=== PATIENT | male | born 1945 | race Hispanic/Latino ===

== ENCOUNTER 2021-11-10 15:57 | Inpatient (IN) | payer OTHER ==
[2021-11-10] MEDS ORDERED: IPRATROPIUM BROM 0.5MG/2.5ML ONE (16:01)
[2021-11-10] MEDS ORDERED: LEVALBUTEROL 1.25 MG/3 ML NEB ONE (16:01)
--- OUTSIDE RECORDS SUMMARY | 2021-11-10 16:31 | XMS REPORT | Continuity of Care Document ---
:1945 Author Organization [facility] t Address [address] [place] [address] Care Team Providers Name Role Phone Floridalma BOCANEGRA Primary Care Physician NATALIE Attending Clinician Unavailable Shaq KAY Attending Clinician Unavailable Heather Cespedes MD Attending Clinician Cirilo RN Attending Clinician Unavailable Floridalma BOCANEGRA Attending Clinician Charlene Ayala MD Attending Clinician Kevin Owens DO Attending Clinician Robin BOCANEGRA Attending Clinician Emmanuelle BOCANEGRA, TCecilia Attending Clinician Maria Elena RN Attending Clinician Unavailable Fahad King MD Attending Clinician Lapin_S Attending Clinician Unavailable Kody Cifuentes Attending Clinician [phone] Renetta Hancock MD Attending Clinician Juanita BOCANEGRA Attending Clinician Sherita Reddy MD Attending Clinician Shani BOCANEGRA Attending Clinician Raju_P Attending Clinician Unavailable ROBIN Admitting Clinician Unavailable Lapin_S Admitting Clinician Unavailable JUANITA Admitting Clinician Unavailable Raju_P Admitting Clinician Unavailable Payers Payer Name Policy Type Policy Number Effective Date Expiration Date Leslie teixeira [place]IC[place]: [id number] 1995 [employer] 00:00:00 AETNA (INDEMNITY) [id number] 00:00:00 AETNA [id number] 2000 00:00:00 Problems Condition Condition Condition Status Onset Resolution Last Treating Co mments Source Name Details Category Date Date Treatment Clinician Date COVID-19 COVID-19 Disease Active [facility] 9-03 st 00:00: Hospita 00 l Late onset Late onset Disease Active 2018-08 M ethodi Alzheimer' Alzheimer' 0-15 st s disease s disease 00:00: Hosp lina with with 00 l behavioral behavioral disturbanc disturbanc e e 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 00:00: Ho spita disorder disorder 00 l Macular Macular Disease Active [facility] degenerati degenerati 8-16 st on on 00:00: Hospita 00 l Vision Vision Disease Active [facility] loss loss 8-16 st 00:00: Hospita 00 l 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 00:00: Hospit a 00 l Dementia Dementia Disease Active [facility] di associated associated [address] with with 00:00: Hospita alcoholism alcoholism 00 l with with behavioral behavioral disturbanc disturbanc e e 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 00:00: Hospit a 00 l Alcoholic Alcoholic Disease Active Met [facility]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 00:00: Ho spita 00 l Abnormal Abnormal Disease Active [facility] di gait gait 5-08 st 00:00: Hospita 00 l Bilateral Bilateral Disease Active Met hodi hearing hearing 2-27 st loss loss 00:00: Hospita 00 l Chronic Chronic Disease Active [facility] anxiety anxiety 2-27 st 00:00: Hospita 00 l Bilateral Bilateral Disease Active Met [facility]odi lumbar lumbar 2-27 st radiculopa radiculopa 00:00: Ho spita thy thy 00 l Nocturia Nocturia Disease Active [facility] di 2-27 st 00:00: Hospita 00 l Current Current Disease Active [facility] smoker smoker 10-27 00:00: Hospita 00 l Insomnia Insomnia Disease Active [facility] di 09-30 00:00: Hospita 00 l History of History of Disease Active 2011-08 Overview : [facility] colon colon 0-[address] cancer cancer 00:00: g of this Hospita 00 note l might be different from the original. Formattin g of this note might be different from the original. 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 00:00: Hospit a 00 l Allergies, Adverse Reactions, Alerts Allergy Allergy Status Severity Reaction(s) Onset Inactive Treating Comm ents Source Name Type Date Date Clinician Angelito Steinberg Active Other (See Severe Met hodi ty to Comments) [address] adverse 00:00: ion Hospita reaction 00 l s to drug Family History Family Member Diagnosis Comments Start Date Stop Date Source Natural brother Lung cancer [facility] Natural brother Alcohol abuse [facility] Natural brother Parkinsonism [facility] Natural father Other [facility] mother Diabetes [facility] mother [facility] sister [facility] Natural sister Hypertension [facility] Natural sister Lung cancer [facility] Natural sister Stomach cancer [facility] Natural sister Breast cancer [facility] Social History Social Habit Start Date Stop Date Quantity Comments Source History of tobacco Cigarette Smoker [facility] use Hospital History SDOH [facility] Alcohol Frequency Hospita l History SDOH [facility] Alcohol Std Drinks Hospit al History SDOH [facility] Alcohol Binge Hospital Alcohol intake 2021-08-12 2021-08-12 Current drinker [facility] 00:00:00 00:00:00 of alcohol Hospital (finding) Cigarettes smoked 2018-04-19 2018-04-[address] current (pack per 00:00:00 00:00:00 Hospita l day) - Reported Tobacco use and 2018-04-19 2018-04-19 Smokeless tobacco [facility] exposure 00:00:00 00:00:00 non-user Hospital Alcohol Comment 2016-07-21 2016-07-21 occ used to drink [facility] 00:00:00 00:00:00 heavy until age Hospital 48 Sex Assigned At [birth year] [facility] 00:00:00 00:00:00 Hospital Smoking Status Start Date Stop Date Source Ex-smoker 2018-04-19 00:00:00 2018-04-19 00:00:00 Method t [facility] Medications Ordered Filled Start Stop Current Ordering Indication Dosage Frequency Signature Comments Components Source Medication Medication Date Date Medication? Clinician (SIG) Name Name benzonatate 2021- No 100mg Q.5D Take 100 [facility] (TESSALON) 09-30-[address] 100 MG 13:13: 00:00 mouth 2 Hospita capsule 39 :00 (two) l times a day as needed for cough. benzonatate Yes 100mg Q.5D Take 1 Met hodi (TESSALON) 09-[address] 100 MG 00:00: (100 mg Hospita capsule 00 total) by l mouth 2 (two) times a day as needed for cough. bromphenira 2021- Yes 5mL Q.25D Take 5 mL Method[facility] mine-pseudo 09-30 by mouth 4 s t eph-DM 00:00: 05:59 (four) Hospita 2-30-10 00 :00 times a l mg/5 mL day as syrup needed for congestion , cough or allergies for up to 10 days. doxycycline 2021- Yes 100mg Q.5D Take 1 Me [facility] (VIBRA-TABS 09-[address] ) 100 MG 00:00: 05:59 (100 mg Hospi ta tablet 00 :00 total) by l mouth 2 (two) times a day for 7 days. QUEtiapine Yes TAKE 1 Metho di (SEROquel) 1-[address] 25 MG 00:00: MOUTH AT Hospita tablet 00 5PM AND 2 l TABLETS EVERY NIGHT AT BEDTIME tamsulosin 2020-08 Yes .4mg QD Take 0.4 Met hodi (FLOMAX) 2-[address] 0.4 mg 11:23: mouth Hospita capsule,ext 19 daily. l ended release 24hr sertraline 2020-08 Yes 150mg QD Take 150 Me [facility] (ZOLOFT) 2-[address] 100 MG 11:23: mouth Hospita tablet 14 daily. l losartan 2020-08 Yes 50mg QD Take 50 mg Met hodi (COZAAR) 50 2-[address] MG tablet 11:22: daily. Hospit a 13 l donepeziL 2020-08 Yes 10mg QD Take 10 mg [facility] (ARICEPT) 2-[address] 10 MG 11:21: nightly. Hospita tablet 41 l albuterol 2020-08 Yes [id number] 2.5mg Q6H Take 3 mL [facility] (ACCUNEB) -18 (2.[address] 2.5 mg /3 00:00: total) by Hos lay mL (0.083 00 nebulizati l %) on every 6 nebulizer (six) solution hours as needed for wheezing. amoxicillin 2020-08- No 1{tbl} Q.5D Take 1 M ethodi -pot 09-[address] clavulanate 00:00: 05:59 mouth 2 Ho spita (Augmentin) 00 :00 (two) l 875-125 mg times a per tablet day for 7 days. loratadine 2020-08 Yes 10mg QD Take 1 Meth[facility] di (CLARITIN) 08-31 tablet (10 st 10 mg 00:00: mg total) Hospita tablet 00 by mouth l daily. azelastine 2020-08- No 1{spray Q.5D 1 spray [facility] (ASTELIN) 08-31 } into each st 137 mcg 00:00: 04:59 nostril 2 Hosp lina (0.1 %) 00 :00 (two) l nasal spray times a day. Use in each nostril as directed QUEtiapine 2020-08- No 3{tbl} QD Take 3 Me [facility] (SEROquel) 009-[address] 25 MG 00:00: 00:00 mouth Hospita tablet 00 :00 nightly. 1 l tablet at 5 pm and 2 tablets at 10-11 pm fluticasone 2020- No 1{puff} Q.5D Inhale 1 [facility] propion-timi 05-21 09-[address] meteroL 16:10: 00:00 (two) Hospita (ADVAIR/ 18 :00 times a l WIXELA day. INHUB) 250-50 mcg/dose DISKUS albuterol 2020- No 2{puff} Inhale 2 [facility] (PROAIR 05-[address] HFA) 90 16:10: 00:00 needed for Hos lay mcg/actuati 11 :00 wheezing l on inhaler or shortness of breath. benzonatate 2020- No 100mg Q.[id number] Take 100 [facility] (TESSALON) 05-21 [id number] mg by s t 100 MG 16:02: 00:00 3D mouth 3 Hospita capsule 01 :00 (three) l times a day as needed for cough. esomeprazol 2020- No 40mg Q24H Take 40 mg Methodi e (NexIUM) 05-[address] 40 MG 14:58: 00:00 daily as Hospita capsule 31 :00 needed. l acetaminoph 2020- No 500mg Take 500 [facility] en 05-[address] (TYLENOL) 14:58: 00:00 mouth as Hos lay 500 MG 31 :00 needed for l tablet mild pain. albuterol 2020- No 2.5mg Q6H Take 2.5 Me [facility] (ACCUNEB) 05-[address] 2.5 mg /3 14:58: 00:00 nebulizati H ospita mL (0.083 31 :00 on every 6 l %) (six) nebulizer hours as solution needed for wheezing or shortness of breath. QUEtiapine 2020- No 25mg Q.5D Take 25 mg [facility] (SEROquel) 05-[address] 25 MG 14:58: 00:00 (two) Hospita tablet 31 :00 times a l day. At 6pm and at bedtime QUEtiapine 2020-2020- No 50mg QD Take 1 Meth froy (SEROquel) 05-09 1010 tablet (50 st 50 MG 00:00: 04:59 mg total) Hospit a tablet 00 :00 by mouth l daily for 30 days. carvediloL 2020- No 3.125mg Q.5D Take 1 M ethodi (COREG) 05-[address] 3.125 MG 00:00: 04:59 (3.125 mg Hos lay tablet 00 :00 total) by l mouth 2 (two) times a day for 30 days. cholecalcif 2020- No 1000U QD Take 1 Me thodi wesley, 05-[address] vitamin D3, 00:00: 04:59 (1,000 Hos lay 1,000 unit 00 :00 Units l tablet total) by mouth daily for 30 days. doxazosin 2020- No 2mg QD Take 1 Metho di (CARDURA) 2 05-09 tablet (2 st MG tablet 00:00: 04:59 mg total) Ho spita 00 :00 by mouth l daily for 30 days. famotidine 2020- No 20mg Q.5D Take 1 Meth froy (PEPCID) 20 05-09 tablet (20 s t MG tablet 00:00: 04:59 mg total) Ho spita 00 :00 by mouth 2 l (two) times a day for 30 days. flecainide 2020- No 50mg Q.5D Take 1 Meth froy (TAMBOCOR) 05-09 tablet (50 st 50 MG 00:00: 04:59 mg total) Hospit a tablet 00 :00 by mouth l every 12 (twelve) hours for 30 days. pantoprazol 2020- No 40mg QD Take 1 Met hodi e 05-09 tablet (40 st (PROTONIX) 00:00: 04:59 mg total) H ospita 40 MG EC 00 :00 by mouth l tablet daily for 30 days. predniSONE 2020- No 5mg QD Take 1 Meth froy (DELTASONE) 05-09 tablet (5 st 5 mg tablet 00:00: 00:00 mg total) Hospita 00 :00 by mouth l daily for 30 days. ascorbic 2020- No 500mg QD Take 1 Metho di acid, 05-[address] vitamin C, 00:00: 04:59 (500 mg Hos lay (VITAMIN C) 00 :00 total) by l 500 MG mouth tablet daily for 10 days. zinc 2020- No 1{capsu QD Take 1 [facility] sulfate 05-09 le} capsule by st (ZINCATE) 00:00: 04:59 mouth Hospit a 50 mg zinc 00 :00 daily for l (220 mg) 10 days. capsule pantoprazol 2020- No 40mg QD Take 1 Met hodi e 05-09 tablet (40 st (PROTONIX) 00:00: 00:00 mg total) H ospita 40 MG EC 00 :00 by mouth l tablet daily for 30 days. finasteride 2020- No 5mg QD Take 1 Met hodi (PROSCAR) 5 05-08 tablet (5 st mg tablet 00:00: 04:59 mg total) Ho spita 00 :00 by mouth l daily for 30 days. polyethylen 2020- No 17g Q24H Take 17 g Methodi e glycol 05-[address] (MIRALAX) 00:00: 00:00 daily as Hos lay 17 gram 00 :00 needed for l packet constipati on for up to 30 days. QUEtiapine No 50mg QD Take 1 Meth froy (SEROquel) 05-08 tablet (50 st 50 MG 00:00: 00:00 mg total) Hospit a tablet 00 :00 by mouth l daily for 30 days. ascorbic No 500mg QD Take 1 Metho di acid, 05-[address] vitamin C, 00:00: 00:00 (500 mg Hos lay (VITAMIN C) 00 :00 total) by l 500 MG mouth tablet daily for 10 days. carvediloL 2020- No 3.125mg Q.5D Take 1 M ethodi (COREG) 05-[address] 3.125 MG 00:00: 00:00 (3.125 mg Hos lay tablet 00 :00 total) by l mouth 2 (two) times a day for 30 days. cholecalcif 2020- No 1000U QD Take 1 Me thodi wesley, 05-[address] vitamin D3, 00:00: 00:00 (1,000 Hos lay 1,000 unit 00 :00 Units l tablet total) by mouth daily for 30 days. doxazosin No 2mg QD Take 1 Metho di (CARDURA) 2 05-08 tablet (2 st MG tablet 00:00: 00:00 mg total) Ho spita 00 :00 by mouth l daily for 30 days. famotidine No 20mg Q.5D Take 1 Meth froy (PEPCID) 20 05-08 tablet (20 s t MG tablet 00:00: 00:00 mg total) Ho spita 00 :00 by mouth 2 l (two) times a day for 30 days. flecainide No 50mg Q.5D Take 1 Meth froy (TAMBOCOR) 05-08 tablet (50 st 50 MG 00:00: 00:00 mg total) Hospit a tablet 00 :00 by mouth l every 12 (twelve) hours for 30 days. predniSONE No 5mg QD Take 1 Meth froy (DELTASONE) 05-08 tablet (5 st 5 mg tablet 00:00: 00:00 mg total) Hospita 00 :00 by mouth l daily for 30 days. zinc No 1{capsu QD Take 1 [facility]i sulfate 05-08 le} capsule by st (ZINCATE) 00:00: 00:00 mouth Hospit a 50 mg zinc 00 :00 daily for l (220 mg) 10 days. capsule acetaminoph No 1{tbl} Take 1 M ethodi en (TYLENOL 04-[address] ORAL) 11:50: 00:00 mouth as Hospita 03 :00 needed. l QUEtiapine 2020- No 25mg Q.5D Take 25 mg [facility] (SEROquel) 03-[address] 25 MG 07:26: 00:00 (two) Hospita tablet 33 :00 times a l day. Take 1 tablet at 6 pm and 1 tablet at 9 pm for sundowning and restlessne ss. QUEtiapine 2020- No quetiapine [facility] (SEROquel) 03-[address] 25 MG 00:00: 00:00 tablet at Hospit a tablet 00 :00 5 pm and 2 l tablets at bedtime. benzonatate 100mg Q.[id number] Take 1 [facility] (TESSALON) 03-[id number] 100 MG 00:00: 00:00 3D (100 mg Hospita capsule 00 :00 total) by l mouth 3 (three) times a day as needed for cough for up to 30 days. albuterol [id number] 2.5mg Q6H Take 3 mL [facility] (ACCUNEB) 03-01 (2.[address] 2.5 mg /3 00:00: 00:00 total) by Ho spita mL (0.083 00 :00 nebulizati l %) on every 6 nebulizer (six) solution hours as needed for wheezing (excess cough). amoxicillin No 1{tbl} Q.5D Take 1 M ethodi -pot 03-[address] clavulanate 00:00: 04:59 mouth 2 Ho spita (Augmentin) 00 :00 (two) l 875-125 mg times a per tablet day for 7 days. donepeziL 2020- No TAKE 1 Metho di (ARICEPT) 02-11 TABLET(10 st 10 MG 00:00: 00:00 MG) BY Hospita tablet 00 :00 MOUTH l EVERY NIGHT traZODone No 50mg QD Take 1 Metho di (DESYREL) 02-08 tablet (50 st 50 MG 00:00: 00:00 mg total) Hospit a tablet 00 :00 by mouth l nightly. losartan 2020- No TAKE 1 Method i (COZAAR) 50 01-29 TABLET(50 st MG tablet 00:00: 00:00 MG) BY Hospi ta 00 :00 MOUTH l DAILY ergocalcife 2020- No TAKE 1 Met hodi rol 01-[address] (VITAMIN 00:00: 00:00 MOUTH 1 Hospi ta D2) 50,000 00 :00 TIME A l unit WEEK capsule sertraline No TAKE 1 AND [facility] (ZOLOFT) 01-28 08 1/2 st 100 MG 00:00: 00:00 TABLETS BY Hosp lina tablet 00 :00 MOUTH l EVERY DAY amLODIPine No 10mg QD Take 1 Meth froy (NORVASC) 12-19 tablet (10 st 10 mg 00:00: 04:59 mg total) Hospit a tablet 00 :00 by mouth l daily for 30 days. fluticasone QD Inhale 1 M ethodi furoate-christy 12-19 inhalation s t anteroL 00:00: 04:59 s once Hospita (BREO 00 :00 daily for l ELLIPTA) 30 days. 100-25 mcg/dose blister with device powder for inhalation ipratropium No [id number] 3mL Q.[id number] Take 3 mL Method[facility] -albuteroL 12-[id number] (DUO-NEB) 00:00: 04:59 3D nebulizati H ospita 0.5-2.5 00 :00 on every 6 l mg/3 mL (six) nebulizer hours while awake for 30 days. aspirin 81mg QD Take 81 mg Met hodi (ECOTRIN) 4-14 04-[address] 81 MG 11:20: 00:00 daily. Hospita enteric 01 :00 l coated tablet QUEtiapine quetiapine [facility] (SEROquel) 09-26 04-[address] 25 MG 00:00: 00:00 1/2 tablet Hospi ta tablet 00 :00 at 6 pm l and 1 tablet at 9 pm for sundowning and restlessne ss. ergocalcife 2019-08 [id number] Q7D Take 1 M ethodi rol 01-[address] (VITAMIN 00:00: 00:00 (50,000 Hospi ta D2) 50,000 00 :00 Units l unit total) by capsule mouth once a week. sertraline 2019-08 No TAKE 1 AND [facility] (ZOLOFT) -18 05- 1/2 st 100 MG 00:00: 00:00 TABLETS BY Hosp lina tablet 00 :00 MOUTH l EVERY DAY finasteride 5mg QD Take 5 mg [facility] (PROSCAR) 5 05-[address] mg tablet 00:00: 00:00 daily. Hospi ta 00 :00 l traZODone 50mg QD Take 1 Metho di (DESYREL) 05-14 tablet (50 st 50 MG 00:00: 00:00 mg total) Hospit a tablet 00 :00 by mouth l nightly. At 2 or 3 am for sleep. losartan TAKE 1 Method i (COZAAR) 50 04-23 TABLET(50 st MG tablet 00:00: 00:00 MG) BY Hospi ta 00 :00 MOUTH l DAILY donepeziL 2020- No TAKE 1 Metho di (ARICEPT) 02-13 TABLET(10 st 10 MG 00:00: 00:00 MG) BY Hospita tablet 00 :00 MOUTH l EVERY NIGHT dutasteride 2016-08 Yes .5mg QD Take 0.5 Me thodi (AVODART) 2-[address] 0.5 mg 00:00: mouth Hospita capsule 00 daily. l diclofenac No 1g Place 1 g M ethodi (VOLTAREN) 04-[address] 1 % gel 00:00: 00:00 skin as Hospit a 00 :00 needed. l pediatric No 1{tbl} Chew 1 Met hodi multivitami 09-[address] n-iron 00:00: 00:00 daily. 1 Hospit a tablet,chew 00 :00 tab po qd l able Immunizations Ordered Immunization Filled Immunization Date Status Commen ts Source Name [facility] 2021-04-05 Completed [facility] 00:00:00 [facility] 2021-04-04 Completed [facility] 00:00:00 [facility] 2021-04-03 Completed [facility] 00:00:00 [facility] 2021-04-02 Completed [facility] 00:00:00 [facility] 2021-04-01 Completed [facility] 00:00:00 Hospital FLUZONE QUAD 2020-05-01 Completed [facility] 00:00:00 Hospital FLUZONE HIGH-DOSE PF 2019-07-19 Completed [facility]ist 00:00:00 Hospital Td, Unspecified 2019-01-17 Completed [facility] 00:00:00 [facility] FLUZONE HIGH-DOSE PF 2018-08-03 Completed Meth odist 00:00:00 Hospital FLUZONE QUAD 2018-05-31 Completed [facility] 00:00:00 Hospital Pneumococcal 2017-05-31 Completed [facility] Polysaccharide 00:00:00 Hospital Pneumococcal 2017-03-01 Completed [facility] Conjugate 13-Valent 00:00:00 Hospi mario Pneumococcal 2015-08-12 Completed [facility] Conjugate 13-Valent 00:00:00 Hospi mario Pneumococcal 2015-03-15 Completed [facility] Conjugate 13-Valent 00:00:00 [facility] FLUZONE HIGH-DOSE PF 2014-08-31 Completed Meth odist 00:00:00 [facility] Influenza Trivalent 2014-07-05 Completed [facility] dist 00:00:00 Hospital Zoster 2014-04-26 Completed [facility] 00:00:00 Hospital Influenza, 2012-08-31 Completed [facility] Unspecified 00:00:00 Hospital Influenza Trivalent 2012-06-22 Completed [facility] 00:00:00 Hospital Influenza Trivalent 2011-06-30 Completed [facility] dist 00:00:00 [facility] Influenza Trivalent 2010-07-01 Completed [facility] dist 00:00:00 Hospital Pneumococcal 2008-08-31 Completed [facility] Conjugate 13-Valent 00:00:00 [facility] mario Tdap 2008-08-31 Completed [facility] 00:00:00 Hospital Influenza Trivalent 2007-06-16 Completed [facility] 00:00:00 Hospital Influenza Trivalent 2005-06-27 Completed [facility] 00:00:00 Hospital Vital Signs Vital Name Observation Time Observation Value Comments Source Systolic blood 2021-07-18 18:58:00 127 mm[Hg] [facility] Hospital pressure Diastolic blood 2021-07-18 18:58:00 74 mm[Hg] [facility] Hospital pressure Heart rate 2021-07-18 18:58:00 82 /min [facility] Oxygen saturation in 2021-07-18 18:58:00 97 /min [facility] Arterial blood by Pulse oximetry Body temperature 2021-05-09 12:44:13 36.33 [facility] Respiratory rate 2021-05-09 12:44:13 18 /min [facility] Body height 2021-04-22 09:00:00 165.1 cm [facility] Body weight 2021-04-22 09:00:00 79.1 kg [facility] BMI 2021-04-22 09:00:00 29.02 kg/m2 [facility] Procedures Procedure Date / Time Performing Clinician Source Performed DURABLE MEDICAL EQUIPMENT 2021-05-08 21:20:18 [facility] COVID-19 QUALITATIVE 2021-05-07 20:35:00 [facility] RT-PCR CBC WITH PLATELET AND 2021-05-07 11:28:00 [facility] DIFFERENTIAL BASIC METABOLIC PANEL 2021-05-07 11:28:00 [facility] ESTIMATED GFR 2021-05-07 11:28:00 [facility] MANUAL DIFFERENTIAL 2021-05-07 11:28:00 [facility] CBC WITH PLATELET AND 2021-05-06 08:48:00 [facility] DIFFERENTIAL BASIC METABOLIC PANEL 2021-05-06 08:48:00 [facility] ESTIMATED GFR 2021-05-06 08:48:00 [facility] MANUAL DIFFERENTIAL 2021-05-06 08:48:00 [facility] DURABLE MEDICAL EQUIPMENT 2021-05-03 16:45:59 Muriel Benavides [facility] POC GLUCOSE 2021-05-03 13:25:00 [facility] BASIC METABOLIC PANEL 2021-05-03 09:40:[address] [facility] CBC HEMOGRAM 2021-05-03 09:40:[address] [facility] spital ESTIMATED GFR 2021-05-03 09:40:00 [facility] 2021-05-03 09:40:00 Muriel Benavides spital POC GLUCOSE 2021-05-02 21:55:00 [facility] POC GLUCOSE 2021-05-02 16:56:00 [facility] POC GLUCOSE 2021-05-02 12:34:00 [facility] CBC WITH PLATELET AND 2021-05-02 09:12:00 [facility] DIFFERENTIAL BASIC METABOLIC PANEL 2021-05-02 09:12:00 [facility] MAGNESIUM LEVEL 2021-05-02 09:12:00 [facility] PHOSPHORUS LEVEL 2021-05-02 09:12:00 [facility] ESTIMATED GFR 2021-05-02 09:12:00 [facility] MANUAL DIFFERENTIAL 2021-05-02 09:12:00 [facility] POC GLUCOSE 2021-05-02 02:39:00 [facility] POC GLUCOSE 2021-05-01 23:23:00 [facility] COVID-19 QUALITATIVE 2021-05-01 23:06:00 [facility] RT-PCR POC GLUCOSE 2021-05-01 17:19:00 [facility] POC GLUCOSE 2021-05-01 14:09:00 [facility] CBC WITH PLATELET AND 2021-05-01 08:28:00 [facility] DIFFERENTIAL BASIC METABOLIC PANEL 2021-05-01 08:28:00 [facility] MAGNESIUM LEVEL 2021-05-01 08:28:00 [facility] PHOSPHORUS LEVEL 2021-05-01 08:28:00 [facility] ESTIMATED GFR 2021-05-01 08:28:00 [facility] MANUAL DIFFERENTIAL 2021-05-01 08:28:00 [facility] POC GLUCOSE 2021-04-30 20:36:00 [facility] POC GLUCOSE 2021-04-30 16:53:00 [facility] POC GLUCOSE 2021-04-30 13:58:00 [facility] POC GLUCOSE 2021-04-30 13:20:00 [facility] POC GLUCOSE 2021-04-30 09:54:00 [facility] CBC WITH PLATELET AND 2021-04-30 08:41:00 [facility] DIFFERENTIAL BASIC METABOLIC PANEL 2021-04-30 08:41:00 [facility] ESTIMATED GFR 2021-04-30 08:41:00 [facility] MANUAL DIFFERENTIAL 2021-04-30 08:41:00 [facility] POC GLUCOSE 2021-04-30 06:32:00 [facility] POC GLUCOSE 2021-04-30 05:57:00 [facility] [facility] POC GLUCOSE 2021-04-30 03:14:00 [facility] POC GLUCOSE 2021-04-29 22:25:00 [facility] POC GLUCOSE 2021-04-29 17:18:00 [facility] POC GLUCOSE 2021-04-29 13:43:00 [facility] B NATRIURETIC PEPTIDE 2021-04-29 09:49:00 [facility] BASIC METABOLIC PANEL 2021-04-29 09:49:00 [facility] ESTIMATED GFR 2021-04-29 09:49:00 [facility] POC GLUCOSE 2021-04-29 09:40:00 [facility] POC GLUCOSE 2021-04-29 06:16:00 [facility] POC GLUCOSE 2021-04-29 01:59:00 [facility] POC GLUCOSE 2021-04-28 21:52:00 [facility] POC GLUCOSE 2021-04-28 17:52:00 [facility] POC GLUCOSE 2021-04-28 13:35:00 [facility] POC GLUCOSE 2021-04-28 11:17:00 [facility] BASIC METABOLIC PANEL 2021-04-28 10:30:00 [facility] MAGNESIUM LEVEL 2021-04-28 10:30:00 [facility] PHOSPHORUS LEVEL 2021-04-28 10:30:00 [facility] ESTIMATED GFR 2021-04-28 10:30:00 [facility] CBC WITH PLATELET AND 2021-04-28 10:27:00 [facility] DIFFERENTIAL MANUAL DIFFERENTIAL 2021-04-28 10:27:00 [facility] POC GLUCOSE 2021-04-28 07:32:00 [facility] POC GLUCOSE 2021-04-28 03:37:00 [facility] POC GLUCOSE 2021-04-27 22:25:00 [facility] POC GLUCOSE 2021-04-27 17:49:00 [facility] POC GLUCOSE 2021-04-27 14:49:00 [facility] CBC WITH PLATELET AND 2021-04-27 11:27:00 [facility] DIFFERENTIAL BASIC METABOLIC PANEL 2021-04-27 11:27:00 [facility] L[facility] 2021-04-27 11:27:00 [facility] PHOSPHORUS LEVEL 2021-04-27 11:27:00 [facility] B NATRIURETIC PEPTIDE 2021-04-27 11:27:00 [facility]y [facility] ESTIM[facility] GFR 2021-04-27 11:27:00 [facility] MANUAL DIFFERENTIAL 2021-04-27 11:27:00 [facility] POC GLUCOSE 2021-04-27 09:13:00 [facility] POC GLUCOSE 2021-04-27 04:26:00 [facility] POC GLUCOSE 2021-04-27 01:53:00 [facility] POC GLUCOSE 2021-04-26 22:13:00 [facility] POC GLUCOSE 2021-04-26 19:01:00 [facility] TRANSFUSE RED BLOOD CELLS 2021-04-26 18:07:00 [facility] PREPARE RBC 2021-04-26 15:33:00 [facility] POC GLUCOSE 2021-04-26 15:32:00 [facility] POC GLUCOSE 2021-04-26 13:09:00 [facility] CBC WITH PLATELET AND 2021-04-26 10:55:00 [facility] DIFFERENTIAL BASIC METABOLIC PANEL 2021-04-26 10:55:00 [facility] MAGNESIUM LEVEL 2021-04-26 10:55:00 [facility] PHOSPHORUS LEVEL 2021-04-26 10:55:00 [facility] ESTIMATED GFR 2021-04-26 10:55:00 [facility] MANUAL DIFFERENTIAL 2021-04-26 10:55:00 HandleyKali erazo [facility] POC GLUCOSE 2021-04-26 09:22:00 [facility] POC GLUCOSE 2021-04-26 05:04:00 [facility] POC GLUCOSE 2021-04-26 01:03:00 [facility] POC GLUCOSE 2021-04-25 23:08:00 [facility] POC GLUCOSE 2021-04-25 17:33:00 [facility] POC GLUCOSE 2021-04-25 13:20:00 [facility] CBC WITH PLATELET AND 2021-04-25 11:02:00 [facility] DIFFERENTIAL BASIC METABOLIC PANEL 2021-04-25 11:02:00 [facility] MAGNESIUM LEVEL 2021-04-25 11:02:00 [facility] PHOSPHORUS LEVEL 2021-04-25 11:02:00 [facility] ESTIMATED GFR 2021-04-25 11:02:00 [facility] MANUAL DIFFERENTIAL 2021-04-25 11:02:00 [facility] 2021-04-25 09:30:00 [facility] POC GLUCOSE 2021-04-25 05:17:00 [facility] POC GLUCOSE 2021-04-25 01:27:00 [facility] POC GLUCOSE 2021-04-24 21:55:00 [facility] [place] MODIFIED BARIUM 2021-04-24 20:24:21 HandleyKali jiménez [facility] POC GLUCOSE 2021-04-24 17:20:00 [facility] POC GLUCOSE 2021-04-24 13:05:00 [facility] POC GLUCOSE 2021-04-24 09:36:00 [facility] D-DIMER 2021-04-24 09:24:00 Ngitit, Kelsie [facility] CBC WITH PLATELET AND 2021-04-24 09:24:00 [facility] DIFFERENTIAL BASIC METABOLIC PANEL 2021-04-24 09:24:00 [facility] MAGNESIUM LEVEL 2021-04-24 09:24:00 [facility] PHOSPHORUS LEVEL 2021-04-24 09:24:00 [facility] ESTIMATED GFR 2021-04-24 09:24:00 [facility] MANUAL DIFFERENTIAL 2021-04-24 09:24:00 [facility] POC GLUCOSE 2021-04-24 05:08:00 [facility] XR ABDOMEN 1 VW PORTABLE 2021-04-24 00:25:10 [facility] POC GLUCOSE 2021-04-24 00:15:00 [facility] CBC WITH PLATELET AND 2021-04-23 09:51:00 Angela Martino [facility] DIFFERENTIAL COMPREHENSIVE METABOLIC 2021-04-23 09:51:00 Gunner [facility] PANEL D-DIMER 2021-04-23 09:51:00 [facility] [place] ESTIMATED GFR 2021-04-23 09:51:00 Martino [facility] MANUAL DIFFERENTIAL 2021-04-23 09:51:00 Angela Martino [facility] POC GLUCOSE 2021-04-23 09:49:00 [facility] POC GLUCOSE 2021-04-23 04:58:00 [facility] POC GLUCOSE 2021-04-23 02:10:00 HandleyKali jiménez. [facility] POC GLUCOSE 2021-04-22 17:32:00 HandleyKali jiménez T. [facility] POC GLUCOSE 2021-04-22 13:31:00 Handley [facility] T. [facility] POC GLUCOSE 2021-04-22 10:14:00 [facility] Nolberto. [facility] HC COMPLETE BLD COUNT 2021-04-22 08:55:00 Martino [facility] W/AUTO DIFF COMPREHENSIVE METABOLIC 2021-04-22 08:55:00 [facility] PANEL D-DIMER 2021-04-22 08:55:[address] [facility] martha Grimes ESTIMATED GFR 2021-04-22 08:55:00 HandleyaKli jiménez [facility] POC GLUCOSE 2021-04-22 05:08:00 Handley jessy Kaufman [facility] POC GLUCOSE 2021-04-21 22:31:00 HandleyKali [facility] POC GLUCOSE 2021-04-21 17:39:00 [facility] jessy Kaufman [facility] XR CHEST 1 VW PORTABLE 2021-04-21 14:22:08 Denisa [facility] Deepa Machelle POC GLUCOSE 2021-04-21 13:37:00 Handley osorio Mandeep [facility] ECG 12-LEAD 2021-04-21 12:11:07 Brian Maldonado martha Sykesandra Machelle CBC WITH PLATELET AND 2021-04-21 10:41:00 Angela Martino [facility] DIFFERENTIAL COMPREHENSIVE METABOLIC 2021-04-21 10:41:00 [facility] PANEL ESTIMATED GFR 2021-04-21 10:41:00 HandleyKali jiménez. [facility] MANUAL DIFFERENTIAL 2021-04-21 10:41:[address] [facility] POC GLUCOSE 2021-04-21 10:27:00 HandleyKali [facility] POC GLUCOSE 2021-04-21 05:27:00 Kali Handley [facility] POC GLUCOSE 2021-04-21 02:10:00 Kali Handley. [facility] POC GLUCOSE 2021-04-20 22:45:00 HandleyKali jiménez [facility] POC GLUCOSE 2021-04-20 17:11:00 HandleyKali jiménez [facility] XR CHEST 1 VW PORTABLE 2021-04-20 14:12:35 [facility] POC GLUCOSE 2021-04-20 13:13:00 Kali Handley [facility] POC GLUCOSE 2021-04-20 10:03:00 Kali Handley [facility] COMPREHENSIVE METABOLIC 2021-04-20 06:38:00 Kali Handley [facility] PANEL CBC WITH PLATELET AND 2021-04-20 06:38:00 Kali Handley [facility] DIFFERENTIAL ESTIMATED GFR 2021-04-20 06:38:00 Kali Handley [facility] MANUAL DIFFERENTIAL 2021-04-20 06:38:[address] [facility] POC GLUCOSE 2021-04-20 05:27:00 Kali Handley [facility] POC GLUCOSE 2021-04-20 02:09:00 HandleyKali jiménez [facility] POC GLUCOSE 2021-04-19 21:42:00 Kali Handley [facility] XR CHEST 1 VW PORTABLE 2021-04-19 21:28:35 [facility] POC GLUCOSE 2021-04-19 17:47:00 HandleyKali jiménez [facility] POC GLUCOSE 2021-04-19 13:25:00 HandleyKali jiménez [facility] POC GLUCOSE 2021-04-19 09:25:00 HandleyKali jiménez [facility] C-REACTIVE PROTEIN 2021-04-19 09:21:00 Kali [facility] COMPREHENSIVE METABOLIC 2021-04-19 09:21:00 Kali Handley [facility] PANEL CBC WITH PLATELET AND 2021-04-19 09:21:00 Kali Handley [facility] DIFFERENTIAL D-DIMER 2021-04-19 09:21:[address] [facility] spital FERRITIN LEVEL 2021-04-19 09:21:00 Kennedy, [facility] spital FIBRINOGEN 2021-04-19 09:21:00 Kennedy, [facility] spital INTERLEUKIN 6 2021-04-19 09:21:00 Kennedy, [facility] spital MAGNESIUM LEVEL 2021-04-19 09:21:00 Kennedy, [facility] spital PHOSPHORUS LEVEL 2021-04-19 09:21:00 Kennedy, [facility] ospital CRP HIGH SENSITIVITY 2021-04-19 09:21:00 Tracie Benavides[facility] ESTIMATED GFR 2021-04-19 09:21:00 Kali Handley Cecilia [facility] BILIRUBIN DIRECT 2021-04-19 09:21:00 Emmanuel[facility] MANUAL DIFFERENTIAL 2021-04-19 09:21:00 [facility] POC GLU[facility]SE 2021-04-19 05:49:00 [facility] POC GLUCOSE 2021-04-19 01:21:00 [facility] POTASSIUM LEVEL 2021-04-19 00:51:00 Sorinitit, Kelsie [facility] spital [place] MAGNESIUM LEVEL 2021-04-19 00:51:00 Ngitit, Kelsie [facility] spital [place] POC GLUCOSE 2021-04-18 22:45:00 [facility] XR CHEST 1 VW PORTABLE 2021-04-18 18:00:00 Joel [facility] Deepa Nicole POC GLUCOSE 2021-04-18 17:06:00 [facility] ECG 12-LEAD 2021-04-18 13:56:40 [facility] POC GLUCOSE 2021-04-18 13:34:00 [facility] GLUCOSE 2021-04-18 10:40:00 [facility] C-REACTIVE PROTEIN 2021-04-18 06:59:00 Handley [facility] COMPREHENSIVE METABOLIC 2021-04-18 06:59:[address] [facility] ESTIMATED GFR 2021-04-18 06:59:00 [facility] CBC WITH PLATELET AND 2021-04-18 06:58:00 [facility] DIFFERENTIAL B NATRIURETIC PEPTIDE 2021-04-18 06:58:00 [facility] MANUAL DIFFERENTIAL 2021-04-18 06:58:00 Handley [facility] POC GLUCOSE 2021-04-18 06:48:00 [facility] POC GLUCOSE 2021-04-18 01:40:00 [facility] POC GLUCOSE 2021-04-17 22:36:00 [facility] POC GLUCOSE 2021-04-17 17:50:00 [facility] POC GLUCOSE 2021-04-17 13:19:00 [facility] POC GLUCOSE 2021-04-17 10:11:00 [facility] POC GLUCOSE 2021-04-17 06:49:00 [facility] C-REACTIVE PROTEIN 2021-04-17 06:34:00 Handley [facility] CBC WITH PLATELET AND 2021-04-17 06:34:00 [facility] DIFFERENTIAL COMPREHENSIVE METABOLIC 2021-04-17 06:34:00 [facility]len [facility] PANEL ESTIMATED GFR 2021-04-17 06:34:00 [facility] MANUAL DIFFERENTIAL 2021-04-17 06:34:00 [facility] POC GLUCOSE 2021-04-17 01:52:00 [facility] XR CHEST 1 VW PORTABLE 2021-04-16 22:04:00 Kelsie Serra [facility] [place] POC GLUCOSE 2021-04-16 21:25:00 [facility] POC GLUCOSE 2021-04-16 17:27:00 [facility] POC GLUCOSE 2021-04-16 13:23:00 [facility] ECG 12-LEAD 2021-04-16 10:30:15 Brian Maldonado [facility] Deepa Carty COMPLETE BLD COUNT 2021-04-16 10:05:00 [facility] W/AUTO DIFF COMPREHENSIVE METABOLIC 2021-04-16 10:05:00 [facility] PANEL C-REACTIVE PROTEIN 2021-04-16 10:05:00 [facility] ESTIMATED GFR 2021-04-16 10:05:00 [facility] VANCOMYCIN LEVEL, TROUGH 2021-04-16 10:05:00 [facility] SMEAR REVIEW 2021-04-16 10:05:00 [facility] POC GLUCOSE 2021-04-16 10:01:00 [facility] POC GLUCOSE 2021-04-16 05:49:00 [facility] POC GLUCOSE 2021-04-16 02:03:00 [facility] POC GLUCOSE 2021-04-15 22:57:00 [facility] POC GLUCOSE 2021-04-15 17:26:00 [facility] XR CHEST 1 VW PORTABLE 2021-04-15 17:15:00 [facility] POC GLUCOSE 2021-04-15 13:27:00 [facility] CBC WITH PLATELET AND 2021-04-15 11:14:00 OsborneMae woodarg [facility] DIFFERENTIAL C-REACTIVE PROTEIN 2021-04-15 11:14:00 CanadaLe[place]ani [facility] D-DIMER 2021-04-15 11:14:00 [facility] ESTIMATED GFR 2021-04-15 11:14:00 [facility] COMPREHENSIVE METABOLIC 2021-04-15 11:14:00 [facility] PANEL MANUAL DIFFERENTIAL 2021-04-15 11:14:00 [facility] POC GLUCOSE 2021-04-15 09:43:00 [facility] POC GLUCOSE 2021-04-15 06:05:00 [facility] POC GLUCOSE 2021-04-15 01:36:00 [facility] POC GLUCOSE 2021-04-14 22:39:00 [facility] CBC WITH PLATELET AND 2021-04-14 19:00:00 [facility] DIFFERENTIAL MANUAL DIFFERENTIAL 2021-04-14 19:00:00 [facility] HC COMPLETE BLD COUNT 2021-04-14 18:26:00 [facility] Deepa Ernandezle POC GLUCOSE 2021-04-14 18:07:00 [facility] POC GLUCOSE 2021-04-14 14:05:00 [facility] HC COMPLETE BLD COUNT 2021-04-14 12:48:00 [facility] W/AUTO DIFF SMEAR REVIEW 2021-04-14 12:48:00 [facility] BASIC METABOLIC PANEL 2021-04-14 10:50:00 [facility] HC COMPLETE BLD COUNT 2021-04-14 10:50:00 [facility] W/AUTO DIFF PERIPHERAL SMEAR 2021-04-14 10:50:00 [facility] FERRITIN LEVEL 2021-04-14 10:50:00 [facility] ospital FOLATE LEVEL 2021-04-14 10:50:00 [facility] ospital THYROID STIMULATING 2021-04-14 10:50:00 [facility] HORMONE TOTAL IRON BINDING 2021-04-14 10:50:00 [facility] CAPACITY VITAMIN B12 LEVEL 2021-04-14 10:50:00 [facility] RETICULOCYTE COUNT 2021-04-14 10:50:00 [facility] ESTIMATED GFR 2021-04-14 10:50:00 [facility] POC GLUCOSE 2021-04-14 09:33:00 [facility] POC GLUCOSE 2021-04-14 06:00:00 [facility] POC GLUCOSE 2021-04-14 02:38:00 [facility] POC GLUCOSE 2021-04-13 22:04:00 [facility] TRANSFUSE PLATELET 2021-04-13 18:30:00 [facility] PHERESIS TRANSFUSE PLATELET 2021-04-13 17:18:00 [facility] PHERESIS POC GLUCOSE 2021-04-13 17:02:00 [facility] URINE CULTURE 2021-04-13 13:34:00 [facility] URINALYSIS SCREEN AND 2021-04-13 11:49:00 [facility] MICROSCOPY, WITH REFLEX TO CULTURE PREPARE PLATELET PHERESIS 2021-04-13 11:40:00 [facility] RBC 2021-04-13 11:40:00 Shi Rahman [facility] TYPE AND SCREEN 2021-04-13 11:40:00 [facility] PHERESIS 2021-04-13 11:27:00 [facility] 2021-04-13 11:21:00 [facility] ECG 12-LEAD 2021-04-13 11:11:49 Belkys Garcia spital PROTHROMBIN TIME WITH INR 2021-04-13 10:58:00 [facility] PARTIAL THROMBOPLASTIN 2021-04-13 10:58:00 [facility] TIME (PTT) FIBRINOGEN 2021-04-13 10:58:00 [facility] BASIC METABOLIC PANEL 2021-04-13 08:43:00 [facility] HC COMPLETE BLD COUNT 2021-04-13 08:43:00 [facility] W/AUTO DIFF ESTIMATED GFR 2021-04-13 08:43:00 [facility] SMEAR REVIEW 2021-04-13 08:43:00 [facility] POC GLUCOSE 2021-04-13 05:14:00 [facility] POC GLUCOSE 2021-04-12 23:12:00 [facility] POC GLUCOSE 2021-04-12 22:59:00 [facility] POC GLUCOSE 2021-04-12 17:40:00 [facility] POC GLUCOSE 2021-04-12 11:23:00 [facility] ECG 12-LEAD 2021-04-12 11:08:46 Brian Maldonado D-DIMER 2021-04-12 09:40:00 Kamryn Gillette [facility] MAGNESIUM LEVEL 2021-04-12 09:40:00 [facility] PHOSPHORUS LEVEL 2021-04-12 09:40:00 Kamryn godfrey [facility] BASIC METABOLIC PANEL 2021-04-12 09:40:00 [facility] CBC WITH PLATELET AND 2021-04-12 09:40:00 [facility] DIFFERENTIAL VANCOMYCIN LEVEL, TROUGH 2021-04-12 09:40:00 [facility] ESTIMATED GFR 2021-04-12 09:40:00 [facility] MANUAL DIFFERENTIAL 2021-04-12 09:40:00 [facility] POC GLUCOSE 2021-04-12 05:15:00 [facility] POC GLUCOSE 2021-04-12 01:50:00 [facility] POC GLUCOSE 2021-04-11 22:07:00 [facility] POC GLUCOSE 2021-04-11 19:19:00 [facility] POC GLUCOSE 2021-04-11 17:33:00 [facility] ECG 12-LEAD 2021-04-11 16:18:[address] [facility] 2021-04-11 10:50:00 [facility] C-REACTIVE PROTEIN 2021-04-11 10:29:00 [facility] 2021-04-11 10:29:00 Kamryn Gillette [facility] BASIC METABOLIC PANEL 2021-04-11 10:29:00 Kamryn Gillette [facility] CBC WITH PLATELET AND 2021-04-11 10:29:00 Kamryn Gillette [facility] DIFFERENTIAL MAGNESIUM LEVEL 2021-04-11 10:29:00 Kamryn Gillette [facility] PHOSPHORUS LEVEL 2021-04-11 10:29:00 [facility] ESTIMATED GFR 2021-04-11 10:29:00 [facility] MANUAL DIFFERENTIAL 2021-04-11 10:29:00 [facility] POC GLUCOSE 2021-04-11 04:35:00 [facility] POC GLUCOSE 2021-04-10 22:41:00 [facility] CT CHEST W CONTRAST 2021-04-10 22:17:47 [facility] ABDOMEN W CONTRAST PELVIS W CONTRAST POC GLUCOSE 2021-04-10 17:12:00 [facility] POC GLUCOSE 2021-04-10 10:42:00 [facility] C-REACTIVE PROTEIN 2021-04-10 10:30:00 [facility] D-DIMER 2021-04-10 10:30:00 [facility] BASIC METABOLIC PANEL 2021-04-10 10:30:00 [facility] CBC WITH PLATELET AND 2021-04-10 10:30:00 [facility] DIFFERENTIAL MAGNESIUM LEVEL 2021-04-10 10:30:00 [facility] PHOSPHORUS LEVEL 2021-04-10 10:30:00 [facility] ESTIMATED GFR 2021-04-10 10:30:00 [facility] MANUAL DIFFERENTIAL 2021-04-10 10:30:00 [facility] POC GLUCOSE 2021-04-10 04:42:00 Handley [facility] POC GLUCOSE 2021-04-09 23:16:00 [facility] POC GLUCOSE 2021-04-09 17:05:00 [facility] VANCOMYCIN LEVEL, TROUGH 2021-04-09 12:30:00 [facility] XR CHEST 1 VW PORTABLE 2021-04-09 11:42:00 [facility] POC GLUCOSE 2021-04-09 11:18:00 [facility] CBC WITH PLATELET AND 2021-04-09 10:34:00 [facility] DIFFERENTIAL COMPREHENSIVE METABOLIC 2021-04-09 10:34:00 [facility] PANEL MAGNESIUM LEVEL 2021-04-09 10:34:00 [facility] PHOSPHORUS LEVEL 2021-04-09 10:34:00 [facility] BASIC METABOLIC PANEL 2021-04-09 10:34:00 [facility] B NATRIURETIC PEPTIDE 2021-04-09 10:34:00 [facility] C-REACTIVE PROTEIN 2021-04-09 10:34:00 [facility] D-DIMER 2021-04-09 10:34:00 [facility] EST[facility] GFR 2021-04-09 10:34:00 [facility] MANUAL DIFFERENTIAL 2021-04-09 10:34:00 [facility] POC GLUCOSE 2021-04-09 04:42:00 [facility] XR ABDOMEN 1 VW PORTABLE 2021-04-09 02:54:00 [facility] POC GLUCOSE 2021-04-08 23:29:00 [facility] MISCELLANEOUS REFERRAL 2021-04-08 22:28:00 [facility] POC GLUCOSE 2021-04-08 17:24:00 [facility] XR CHEST 1 VW PORTABLE 2021-04-08 15:32:00 [facility] POC GLUCOSE 2021-04-08 13:01:00 [facility] POC GLUCOSE 2021-04-08 10:43:00 [facility] D-DIMER 2021-04-08 10:29:[address] [facility] [place] INTERLEUKIN 6 2021-04-08 10:29:00 [facility] BASIC METABOLIC PANEL 2021-04-08 10:29:00 [facility] C-REACTIVE PROTEIN 2021-04-08 10:29:00 [facility] CBC WITH PLATELET AND 2021-04-08 10:29:00 [facility] DIFFERENTIAL VENOUS BLOOD GAS 2021-04-08 10:29:00 Joel [facility] ospimario Carty ESTIMATED GFR 2021-04-08 10:29:00 [facility] MANUAL DIFFERENTIAL 2021-04-08 10:29:00 [facility] POC GLUCOSE 2021-04-08 05:13:00 [facility] URINE CULTURE 2021-04-08 00:29:00 [facility]tha Arenas Machelle POC GLUCOSE 2021-04-07 23:29:00 [facility] ARTERIAL BLOOD GAS 2021-04-07 22:56:00 [facility]a Carty CBC WITH PLATELET AND 2021-04-07 22:39:00 [facility] DIFFERENTIAL PARTIAL THROMBOPLASTIN 2021-04-07 22:39:00 Joel [facility] TIME (PTT) Deepa Carty PROTHROMBIN TIME WITH INR 2021-04-07 22:39:00 Joel [facility] Deepa Carty D-DIMER 2021-04-07 22:39:00 Brian Maldonado spital Deepa Machelle FIBRINOGEN 2021-04-07 22:39:[address] [facility] spital Deepa Machelle MANUAL DIFFERENTIAL 2021-04-07 22:39:[address] [facility] OCCULT BLOOD, STOOL 2021-04-07 22:19:00 [facility] Deepa Carty CLOSTRIDIUM DIFFICILE 2021-04-07 22:19:00 [facility] TOXIN Deepa Carty URINALYSIS SCREEN AND 2021-04-07 22:19:00 [facility] MICROSCOPY, WITH REFLEX Deepa Carty TO CULTURE TYPE AND SCREEN 2021-04-07 21:14:00 [facility]tha Carty CBC WITH PLATELET AND 2021-04-07 21:14:00 [facility] DI[facility] Deepa Carty PROTHROMBIN TIME WITH INR 2021-04-07 21:14:00 [facility] Carty PARTIAL THROMBOPLASTIN 2021-04-07 21:14:00 [facility] TIME (PTT[facility] Deepa Carty FIBRINOGEN 2021-04-07 21:14:00 [facility]tha Carty D-DIMER 2021-04-07 21:14:00 Brian Maldonado martha Carty BLOOD CULTURE, AEROBIC & 2021-04-07 21:09:00 [facility] ANAEROBIC Deepa Carty POC GLUCOSE 2021-04-07 17:16:00 Kali Handley [facility] XR CHEST 1 VW PORTABLE 2021-04-07 13:42:00 Emmanuelle Patrizia Paredes [facility] POC GLUCOSE 2021-04-07 11:07:00 HandleyKali [facility] D-DIMER 2021-04-07 09:30:[address] [facility] [place] INTERLEUKIN 6 2021-04-07 09:30:00 Kali Handley [facility] BASIC METABOLIC PANEL 2021-04-07 09:30:00 Kali Handley [facility] C-REACTIVE PROTEIN 2021-04-07 09:30:00 Handley, [facility] CBC WITH PLATELET AND 2021-04-07 09:30:00 [facility] DIFFERENTIAL FERRITIN LEVEL 2021-04-07 09:30:00 [facility] LDH 2021-04-07 09:30:00 [facility] ESTIMATED GFR 2021-04-07 09:30:00 [facility] B NATRIURETIC PEPTIDE 2021-04-07 09:30:00 [facility] MANUAL DIFFERENTIAL 2021-04-07 09:30:00 [facility] PROCALCITONIN 2021-04-07 09:30:00 [facility] POC GLUCOSE 2021-04-07 05:17:00 [facility] POC GLUCOSE 2021-04-06 23:03:00 [facility] XR ABDOMEN 1 VW PORTABLE 2021-04-06 21:44:12 [facility] XR CHEST 1 VW PORTABLE 2021-04-06 21:43:27 [facility] POC GLUCOSE 2021-04-06 18:27:00 [facility] BASIC METABOLIC PANEL 2021-04-06 15:08:00 [facility] ESTIMATED GFR 2021-04-06 15:08:00 [facility] POC GLUCOSE 2021-04-06 14:31:00 [facility] XR CHEST 1 VW PORTABLE 2021-04-06 12:38:33 Nelson Schrader [facility] ARTERIAL BLOOD GAS 2021-04-06 10:55:00 Aliya Ricci [facility] POC GLUCOSE 2021-04-06 10:22:00 [facility] D-DIMER 2021-04-06 09:20:[address] [facility] [place] INTERLEUKIN 6 2021-04-06 09:20:00 [facility] BASIC METABOLIC PANEL 2021-04-06 09:20:00 [facility] C-REACTIVE PROTEIN 2021-04-06 09:20:00 [facility] CBC WITH PLATELET AND 2021-04-06 09:20:00 [facility] DIFFERENTIAL ESTIMATED GFR 2021-04-06 09:20:00 [facility] MAGNESIUM LEVEL 2021-04-06 09:20:00 [facility] PHOSPHORUS LEVEL 2021-04-06 09:20:00 [facility] MANUAL DIFFERENTIAL 2021-04-06 09:20:00 [facility] POC GLUCOSE 2021-04-06 04:38:00 [facility] ARTERIAL BLOOD GAS 2021-04-06 01:51:00 Radhames [facility] POC GLUCOSE 2021-04-05 23:12:00 [facility] XR CHEST 1 VW PORTABLE 2021-04-05 17:38:55 [facility] POC GLUCOSE 2021-04-05 17:32:00 [facility] TTE COMPLETE, W CONTRAST, 2021-04-05 14:00:00 Alonso [facility] W DOPPLER ([id number]) Esha URINE CULTURE 2021-04-05 11:50:00 Gunner [facility] POC GLUCOSE 2021-04-05 11:17:00 [facility] VENOUS BLOOD GAS 2021-04-05 09:29:00 Gunner [facility] [id number] IGG 2021-04-05 09:19:00 [facility] INTERLEUKIN 6 2021-04-05 09:19:00 [facility] D-DIMER 2021-04-05 09:19:00 [facility] SEDIMENTATION RATE 2021-04-05 09:19:00 [facility] C-REACTIVE PROTEIN 2021-04-05 09:19:00 [facility] PROCALCITONIN 2021-04-05 09:19:00 [facility] URINALYSIS SCREEN AND 2021-04-05 09:19:00 [facility] MICROSCOPY, WITH REFLEX TO CULTURE LACTIC ACID LEVEL 2021-04-05 09:19:00 [facility] CBC WITH PLATELET AND 2021-04-05 09:19:00 [facility] DIFFERENTIAL COMPREHENSIVE METABOLIC 2021-04-05 09:19:00 [facility] PANEL ESTIMATED GFR 2021-04-05 09:19:00 [facility] MANUAL DIFFERENTIAL 2021-04-05 09:19:00 [facility] BLOOD CULTURE, AEROBIC & 2021-04-05 09:18:00 [facility] ANAEROBIC ECG 12-LEAD 2021-04-05 08:57:27 [facility] POC GLUCOSE 2021-04-05 05:28:00 [facility] POC GLUCOSE 2021-04-05 01:48:00 [facility] ECG 12-LEAD 2021-04-04 20:49:08 [facility] XR ABDOMEN 1 VW 2021-04-04 17:33:25 [facility] US DUPLEX VENOUS LOWER 2021-04-04 16:25:00 Alonso Aliya [facility] EXTREMITY BILATERAL Esha ARTERIAL BLOOD GAS 2021-04-04 13:50:00 [facility] Esha XR CHEST 1 VW PORTABLE 2021-04-04 13:49:25 Aliya Gupta [facility] Esha CBC WITH PLATELET AND 2021-04-04 10:23:00 [facility] DIFFERENTIAL MANUAL DIFFERENTIAL 2021-04-04 10:23:00 [facility] C-REACTIVE PROTEIN 2021-04-04 08:32:00 [facility] INTERLEUKIN 6 2021-04-04 08:32:00 [facility] FERRITIN LEVEL 2021-04-04 08:32:00 [facility] D-DIMER 2021-04-04 08:32:00 [facility] LDH 2021-04-04 08:32:00 [facility] BASIC METABOLIC PANEL 2021-04-04 08:32:00 Handley [facility] ESTIMATED GFR 2021-04-04 08:32:00 [facility] XR ABDOMEN 1 VW 2021-04-03 16:57:25 [facility] XR CHEST 1 VW PORTABLE 2021-04-03 10:28:33 Sapp Arsalan [facility] COVID-19 ANTI-SPIKE IGG 2021-04-03 08:47:00 [facility] ANTIBODY TITER C-REACTIVE PROTEIN 2021-04-03 08:47:00 [facility] INTERLEUKIN 6 2021-04-03 08:47:00 [facility] FERRITIN LEVEL 2021-04-03 08:47:00 [facility] D-DIMER 2021-04-03 08:47:00 [facility] LDH 2021-04-03 08:47:00 [facility] BASIC METABOLIC PANEL 2021-04-03 08:47:00 [facility] CBC WITH PLATELET AND 2021-04-03 08:47:00 [facility] DIFFERENTIAL ESTIMATED GFR 2021-04-03 08:47:00 [facility] MANUAL DIFFERENTIAL 2021-04-03 08:47:00 [facility] TRANSFUSE RED BLOOD CELLS 2021-04-03 03:27:00 [facility] TRANSFUSE RED BLOOD CELLS 2021-04-02 22:52:00 [facility] PREPARE RBC 2021-04-02 20:13:00 [facility] MRSA PCR 2021-04-02 10:19:00 Rehrer, [facility] COMPREHENSIVE METABOLIC 2021-04-02 10:17:00 Rehrer, [facility] PANEL C-REACTIVE PROTEIN 2021-04-02 10:17:00 Rehrer, [facility] CBC WITH PLATELET AND 2021-04-02 10:17:00 Rehrer, [facility] DIFFERENTIAL LDH 2021-04-02 10:17:00 Rehrer, [facility] INTERLEUKIN 6 2021-04-02 10:17:00 Rehrer, [facility] D-DIMER 2021-04-02 10:17:00 Rehrer, [facility] ESTIMATED GFR 2021-04-02 10:17:00 Rehrer, [facility] MANUAL DIFFERENTIAL 2021-04-02 10:17:00 Rehrer, [facility] BLOOD SMEAR CONSULT 2021-04-02 10:17:00 Rehrer, [facility] PLATELET COUNT, MANUAL 2021-04-02 10:17:00 Rehrer, [facility] MRSA PCR 2021-04-02 08:48:00 Camelia Vera [facility] ospital PROCALCITONIN 2021-04-02 03:59:00 Arsalan Sapp [facility] D-DIMER 2021-04-01 15:06:00 [facility] SED[facility]ATE 2021-04-01 15:06:00 [facility] C-REACTIVE PROTEIN 2021-04-01 15:06:00 [facility] LDH 2021-04-01 15:06:00 [facility] INTERLEUKIN 6 2021-04-01 15:06:00 [facility] BASIC METABOLIC PANEL 2021-04-01 15:06:00 [facility] PROCALCITONIN 2021-04-01 15:06:00 [facility] PERIPHERAL SMEAR 2021-04-01 15:06:00 [facility] ESTIMATED GFR 2021-04-01 15:06:00 [facility] SPUTUM CULTURE 2021-04-01 09:52:00 [facility] GRAM STAIN 2021-04-01 09:52:00 [facility] COMPREHENSIVE METABOLIC 2021-04-01 09:52:00 [facility] PANEL ESTIMATED GFR 2021-04-01 09:52:00 [facility] LACTIC ACID LEVEL, SEPSIS 2021-04-01 05:07:00 Rehrer, [facility] - NOW AND REPEAT 2X EVERY 3 HOURS TROPONIN 2021-04-01 05:07:00 [facility] COMPREHENSIVE METABOLIC 2021-04-01 05:07:00 [facility] ESTIMATED GFR 2021-04-01 05:07:00 [facility]LOOD [facility]AS 2021-04-01 05:06:[address] [facility] L[facility]ID LEVEL, SEPSIS 2021-04-01 01:04:00 [facility] - NOW AND REPEAT 2X EVERY 3 HOURS TROPONIN 2021-04-01 01:04:00 Rehrer, [facility] URINE CULTURE 2021-04-01 00:07:00 Rehrer, [facility] ECG 12-LEAD 2021-03-31 23:47:56 Rehrer, [facility] CBC WITH PLATELET AND 2021-03-31 22:54:00 Rehrer, [facility] DIFFERENTIAL PROTHROMBIN TIME WITH INR 2021-03-31 22:54:00 Rehrer, [facility] PARTIAL THROMBOPLASTIN 2021-03-31 22:54:00 Rehrer, [facility] TIME (PTT) URINALYSIS SCREEN AND 2021-03-31 22:54:00 Rehrer, [facility] MICROSCOPY, WITH REFLEX TO CULTURE PHOSPHORUS LEVEL 2021-03-31 22:54:00 Rehrer, [facility] MAGNESIUM LEVEL 2021-03-31 22:54:00 Rehrer, [facility] LACTIC ACID LEVEL, SEPSIS 2021-03-31 22:54:00 Rehrer, [facility] - NOW AND REPEAT 2X EVERY 3 HOURS CREATINE KINASE, TOTAL 2021-03-31 22:54:00 Rehrer, [facility] (CPK) TROPONIN 2021-03-31 22:54:00 Rehrer, [facility] B NATRIURETIC PEPTIDE 2021-03-31 22:54:00 Rehrer, [facility] MANUAL DIFFERENTIAL 2021-03-31 22:54:00 Rehrer, [facility] RESPIRATORY PATHOGEN 2021-03-31 22:48:00 Rehrer, [facility] PANEL WITH COVID-19 RT-PCR CT CHEST WO CONTRAST 2021-03-31 22:18:07 Rehrer, [facility] CT STROKE BRAIN WO 2021-03-31 22:04:55 Juancarlos Ayala [facility] CONTRAST BLOOD CULTURE, AEROBIC & 2021-03-31 21:58:00 Rehrer, [facility] ANAEROBIC ECG ED PRELIMINARY 2021-03-31 21:56:14 Rehrer, [facility] INTERPRETATION NE CRITICAL CARE, E/M 2021-03-31 21:56:14 Rehrer, [facility] 30-74 MINUTES FL MODIFIED BARIUM 2020-12-17 20:20:47 [facility] PROCALCITONIN 2020-12-15 17:58:00 [facility] XR CHEST 1 VW PORTABLE 2020-12-15 16:45:00 [facility] STREPTOCOCCUS PNEUMONIAE 2020-12-14 09:29:00 [facility] URINARY ANTIGEN LEGIONELLA URINARY 2020-12-14 09:29:00 [facility] ANTIGEN URINE CULTURE 2020-12-14 09:29:00 [facility]IN 2020-12-14 09:29:00 Esha Hancock [facility] URINALYSIS SCREEN AND 2020-12-14 09:29:00 [facility] MICROSCOPY, WITH REFLEX TO CULTURE CBC WITH PLATELET AND 2020-12-14 09:29:00 [facility] DIFFERENTIAL BASIC METABOLIC PANEL 2020-12-14 09:29:00 [facility] MAGNESIUM LEVEL 2020-12-14 09:29:00 [facility] ESTIMATED GFR 2020-12-14 09:29:00 [facility] MANUAL DIFFERENTIAL 2020-12-14 09:29:00 Juanita [facility] TROPONIN 2020-12-14 06:57:00 Esha Hancock [facility] CT ANGIOGRAM PE CHEST 2020-12-14 03:37:09 Esha Hancock [facility] NE CRITICAL CARE, E/M 2020-12-14 03:11:38 Esha Hancock [facility] 30-74 MINUTES XR CHEST 1 VW PORTABLE 2020-12-14 03:00:[address] [facility] RESPIRATORY PATHOGEN 2020-12-14 02:18:00 Esha Hancock [facility] PANEL WITH COVID-19 RT-PCR COMPREHENSIVE METABOLIC 2020-12-14 01:38:00 Santi [facility] PANEL LACTIC ACID LEVEL, SEPSIS 2020-12-14 01:38:[address] [facility] - NOW AND REPEAT 2X EVERY 3 HOURS PROTHROMBIN TIME WITH INR 2020-12-14 01:38:[address] [facility] PARTIAL THROMBOPLASTIN 2020-12-14 01:38[facility]00 [facility] TIME (PTT) CBC WITH PLATELET AND 2020-12-14 01:38:00 Santi [facility] DIFFERENTIAL TROPONIN 2020-12-14 01:38:00 Santi [facility] B NATRIURETIC PEPTIDE 2020-12-14 01:38:00 Santi [facility] ESTIMATED GFR 2020-12-14 01:38:00 Santi [facility] MANUAL DIFFERENTIAL 2020-12-14 01:38:00 Santi [facility] ECG 12-LEAD 2020-12-14 01:35:46 Santi [facility] BLOOD CULTURE, AEROBIC & 2020-12-14 01:25:00 [facility] ANAEROBIC URINE CULTURE 2020-12-12 16:44:00 [facility] CBC WITH PLATELET AND 2020-12-12 16:44:00 [facility] DIFFERENTIAL COMPREHENSIVE METABOLIC 2020-12-12 16:44:00 [facility] PANEL VITAMIN D 25 HYDROXY 2020-12-12 16:44:00 [facility] LEVEL URINALYSIS, COMPLETE, 2020-12-12 16:44:00 [facility] WITH REFLEX TO CULTURE THYROID STIMULATING 2020-12-12 16:44:00 [facility] CHEST 2 VW 2020-12-12 16:40:38 Munira Hedrick [facility] Plan of Care Planned Activity Planned Date Details Comments Source Future Scheduled 2021-10-01 [facility]:14[facility]07 (1) [code = COVID-19 VACCINE (1)] Future Scheduled 2021-10-01 [facility] 13:14:07 screening (procedure) [code = [id number]] Future Scheduled 2021-10-01 SHINGLES VACCINES [facility] Test 13:14:07 (#2) [code = SHINGLES VACCINES (#2)] Future Scheduled 2021-10-01 INFLUENZA VACCINE [facility] [facility] Test 13:14:07 [code = INFLUENZA VACCINE] Encounters Start End Encounter Admission Attending Care Care Encounter Source Date/Time Date/Time Type Type Clinicians Facility Department ID 2021-10-22 2021-10-22 Outpatient ESTRADA, [facility] [id number] [place] 00:00:00 00:00:00 SUNEESH [address] 2021-10-22 2021-10-22 Outpatient ESTRADA, [facility] [id number] [place] 00:00:00 00:00:00 SUNEESH [address] 2021-09-30 2021-09-30 Telemedici Natalie, 1.2.840.1 [id number] Methodi 12:48:04 13:39:50 ne Suneesh 17184.1.[address] [facility] 3.430.2.7 Hospit a .3.171489 l .8 2021-09-27 2021-09-27 Orders Shaq, 1.2.840.1 [id number] 0943 Methodi 00:00:00 00:00:00 Only Shyniquia 38347.1.[address] 3.430.2.7 Hospit a .3.081360 l .8 2021-09-26 2021-09-26 Refill Danny Cespedes 1.2.840.1 [id number] 21 [id number] Methodi 00:00:00 00:00:[address] 3.430.2.7 Hospit a .3.529019 l .8 2021-08-13 2021-08-13 Travel 1.2.840.1 1.2.236.967 6122 [id number] Methodi 00:00:00 00:00:[address] 3.430.2.7 0.2.7.3.698 Ho spita .3.022267 084.8 l .8 2021-08-12 2021-08-12 Telemedici [facility] Danny 1.2.840.1 [id number] Methodi 10:56:36 11:21:[address]io. 00830.1.[address] 3.430.2.7 Hospit a .3.727283 l .8 2021-08-09 2021-08-09 Travel 1.2.840.1 1.2.948.734 8784 [id number] Methodi 00:00:00 00:00:[address] 3.430.2.7 0.2.7.3.698 Ho spita .3.665312 084.8 l .8 2021-07-19 2021-07-19 Patient Kerr, 1.2.840.1 [id number] 3698 Methodi 00:00:00 00:00:00 Outreach Wilda 31662.1.1 404 s t 3.430.2.7 Hospit a .3.046616 l .8 2021-07-18 2021-07-18 Telemedici [facility], 1.2.840.1 [id number] Methodi 12:48:36 12:57:45 ne Munira [address]36.1.[address] 3.430.2.7 Hospit a .3.743534 l .8 2021-07-18 2021-07-18 Telephone [facility], 1.2.840.1 [id number] Methodi 00:00:00 00:00:[address] 3.430.2.7 Hospit a .3.727983 l .8 2021-07-17 2021-07-17 Telephone Floridalma, 1.2.840.1 [id number] Methodi 00:00:00 00:00:[address] 3.430.2.7 Hospit a .3.160559 l .8 2021-07-16 2021-07-16 Telephone Floridalma, 1.2.840.1 [id number] Methodi 00:00:00 00:00:[address] 3.430.2.7 Hospit a .3.561014 l .8 2021-07-12 2021-07-12 Patient Cirilo, 1.2.840.1 [id number] Methodi 00:00:00 00:00:00 Outreach Wilda 30794.1.1 595 s t 3.430.2.7 Hospit a .3.680174 l .8 2021-07-05 2021-07-05 Patient Kerr, 1.2.840.1 [id number] 9224 Methodi 00:00:00 00:00:00 Outreach Wilda 35436.1.1 262 s t 3.430.2.7 Hospit a .3.045144 l .8 2021-07-01 2021-07-01 Telemedici Floridalma, 1.2.840.1 [id number] Methodi 15:01:11 15:01:18 ne Munira [address]348.1.[address] 3.430.2.7 Hospit a .3.966094 l .8 2021-06-28 2021-06-28 Patient Cirilo, 1.2.840.1 [id number] 8078 Methodi 00:00:00 00:00:00 Outreach Wilda 62579.1.1 821 s t 3.430.2.7 Hospit a .3.358708 l .8 2021-06-21 2021-06-21 Patient Cirilo, 1.2.840.1 [id number] 6266 Methodi 00:00:00 00:00:00 Outreach Wilda 81813.1.1 919 s t 3.430.2.7 Hospit a .3.484329 l .8 2021-06-14 2021-06-14 Patient Cirilo, 1.2.840.1 [id number] 2752 Methodi 00:00:00 00:00:00 Outreach Wilda 70164.1.1 699 s t 3.430.2.7 Hospit a .3.516264 l .8 2021-06-07 2021-06-07 Patient Kerr, 1.2.840.1 [id number] 6796 Methodi 00:00:00 00:00:00 Outreach Wilda 42535.1.1 111 s t 3.430.2.7 Hospit a .3.428442 l .8 2021-05-31 2021-05-31 Patient Cirilo, 1.2.840.1 [id number] 734005 1163 Methodi 00:00:00 00:00:00 Outreach Wilda 68045.1.1 144 s t 3.430.2.7 Hospit a .3.117312 l .8 2021-05-24 2021-05-24 Patient Cirilo, 1.2.840.1 [id number] 8966 Methodi 00:00:00 00:00:00 Outreach Wilda 44643.1.1 540 s t 3.430.2.7 Hospit a .3.551673 l .8 2021-05-22 2021-05-22 Telephone Floridalma, 1.2.840.1 [id number] Methodi 00:00:00 00:00:[address] 3.430.2.7 Hospit a .3.256252 l .8 2021-05-21 2021-05-21 Telemedici Floridalma, 1.2.840.1 [id number] Methodi 16:12:35 16:12:43 ne Munira 00464.1.[address] 3.430.2.7 Hospit a .3.868381 l .8 2021-05-21 2021-05-21 Telephone Floridalma, 1.2.840.1 [id number] Methodi 00:00:00 00:00:[address] 3.430.2.7 Hospit a .3.510657 l .8 2021-05-20 2021-05-20 Travel 1.2.840.1 1.2.461.139 8033 161062 Methodi 00:00:00 00:00:[address] 3.430.2.7 0.2.7.3.698 Ho spita .3.335165 084.8 l .8 2021-05-17 2021-05-17 Patient Kerr, 1.2.840.1 [id number] 5094 Methodi 00:00:00 00:00:00 Outreach Wilda 72043.1.1 328 s t 3.430.2.7 Hospit a .3.373472 l .8 2021-05-10 2021-05-10 Patient Kerr, 1.2.840.1 [id number] 3344 Methodi 00:00:00 00:00:00 Outreach Wilda 95802.1.1 211 s t 3.430.2.7 Hospit a .3.022814 l .8 2021-05-10 2021-05-10 [facility].840[facility]1 [id number] 21 [id number] Methodi 00:00:00 00:00:00 Only Munira 85831.1.[address] 3.430.2.7 Hospit a .3.612166 l .8 2021-05-10 2021-05-10 Patient Kerr, 1.2.840.1 [id number] 4835 Methodi 00:00:00 00:00:00 Outreach Wilda 99040.1.1 018 s t 3.430.2.7 Hospit a .3.223017 l .8 2021-03-31 2021-05-09 Hospital Juancarlos Ayala Chang 1.2.840.1 [id number] [id number] Methodi 16:46:00 14:58:00 Encounter Jarrell Owens 74661.1.[address] Alfonso Kelly 3.430.2.7 Hospita Kali Handley T. .3.695157 l .8 2021-05-09 2021-05-09 Refill Cadbobos, 1.2.840.1 [id number] Methodi 00:00:00 00:00:[address] 3.430.2.7 Hospit a .3.129662 l .8 2021-03-29 2021-03-29 Orders Danny Cespedes 1.2.840.1 [id number] 21 [id number] Methodi 00:00:00 00:00:[address] C[address] 06706.1.[address] 3.430.2.7 Hospit a .3.582964 l .8 2021-03-29 2021-03-29 Refill Danny Cespedes 1.2.840.1 [id number] 21 [id number] Methodi 00:00:00 00:00:[address] 3.430.2.7 Hospit a .3.624186 l .8 2021-03-05 2021-03-05 Transcribe Fernando, 1.2.840.1 [id number] Methodi 00:00:00 00:00:00 Orders Jayasimha 20401.1.[address] [facility] 3.430.2.7 Hosp lina .3.214589 l .8 2021-03-01 2021-03-01 Telemedici [facility], 1.2.840.1 [id number] Methodi 11:04:24 11:23:[address]ira [address]85.1.[address] 3.430.2.7 Hospit a .3.756249 l .8 2021-02-26 2021-02-26 Outpatient Lapin_S [facility] [id number]- [address] [place] 12:26:00 12:26:00 [address] [facility] 2021-02-26 2021-02-26 Outpatient Lisain, U [facility] [id number] 2-d 00:00:00 00:00:00 Domenic 1a4-18fl-i Kody 9af-2e51ff d56fbb 2021-02-19 2021-02-19 Crane Floridalma, 1.2.840.1 [id number] Methodi 00:00:00 00:00:[address] 3.430.2.7 Hospit a .3.014522 l .8 2021-02-19 2021-02-19 Travel 1.2.840.1 1.2.285.634 7663 095094 Methodi 00:00:00 00:00:[address] 3.430.2.7 0.2.7.3.698 Ho spita .3.930860 084.8 l .8 2021-02-18 2021-02-18 Outpatient Lapin_S [facility] [id number]- [address] [place] 12:58:00 12:58:00 43954 [facility] 2021-02-11 2021-02-11 Refill Danny Cespedes 1.2.840.1 [id number] 21 [id number] Methodi 00:00:00 00:00:[address] 3.430.2.7 Hospit a .3.442723 l .8 2021-02-08 2021-02-08 Office Danny Cespedes 1.2.840.1 [id number] 21 [id number] Methodi 15:30:14 16:27:16 [address] C. 14993.1.[address] 3.430.2.7 Hospit a .3.579520 l .8 2021-02-08 2021-02-08 Travel 1.2.840.1 1.2.884.234 6428 982607 Methodi 00:00:00 00:00:[address] 3.430.2.7 0.2.7.3.698 Ho spita .3.626540 084.8 l .8 2021-01-29 2021-01-29 Orders Muthuswamy, 1.2.840.1 [id number] 21 [id number] Methodi 00:00:00 00:00:00 Only Munira 02135.1.[address] 3.430.2.7 Hospit a .3.962138 l .8 2021-01-29 2021-01-29 Refill Mutswamy, 1.2.840.1 [id number] 21 [id number] Methodi 00:00:00 00:00:[address] 3.430.2.7 Hospit a .3.311989 l .8 2021-01-28 2021-01-28 Refill Muthuswamy, 1.2.840.1 [id number] 21 [id number] Methodi 00:00:00 00:00:[address] 3.430.2.7 Hospit a .3.761738 l .8 2021-01-14 2021-01-14 Travel 1.2.840.1 1.2.329.169 0641 217383 Methodi 00:00:00 00:00:[address] 3.430.2.7 0.2.7.3.698 Ho spita .3.369129 084.8 l .8 2020-12-26 2020-12-26 [facility] 1.2.840.1 [id number] 21 [id number] Methodi 00:00:00 00:00:00 Only Munira 86172.1.[address] 3.430.2.7 Hospit a .3.177343 l .8 2020-12-13 2020-12-19 [facility] 1.2.840.1 104 [id number] Methodi 20:11:00 14:47:00 Encounter Sathya Grant 38909.1.[address] Chirag Reddy Sher[facility]2.7 [facility] M[facility]od .3.266205 l .8 2020-12-17 2020-12-17 Telephone Muthuswamy, 1.2.840.1 [id number] Methodi 00:00:00 00:00:[address] 3.430.2.7 Hospit a .3.490341 l .8 2020-12-12 2020-12-12 Office Floridalma, 1.2.840.1 [id number] 21 [id number] Methodi 10:59:25 11:43:50 Visit Munira 10737.1.[address] 3.430.2.7 Hospit a .3.307927 l .8 2020-12-12 2020-12-12 Telephone Floridalma, 1.2.840.1 [id number] Methodi 00:00:00 00:00:[address] 3.430.2.7 Hospit a .3.728478 l .8 2020-12-12 2020-12-12 Orders Vories, 1.2.840.1 [id number] 7013 Methodi 00:00:00 00:00:00 Only Shleia 80540.1.[address] 3.430.2.7 Hospit a .3.686870 l .8 2020-12-12 2020-12-12 Telephone Floridalma, 1.2.840.1 [id number] Methodi 00:00:00 00:00:[address] 3.430.2.7 Hospit a .3.667995 l .8 2020-12-12 2020-12-12 Travel 1.2.840.1 1.2.099.962 1893 484565 Methodi 00:00:00 00:00:[address] 3.430.2.7 0.2.7.3.698 Ho spita .3.494533 084.8 l .8 2020-12-10 2020-12-10 Telephone Trinanicky, 1.2.840.1 [id number] Methodi 00:00:00 00:00:[address] 3.430.2.7 Hospit a .3.398022 l .8 2020-12-10 2020-12-10 Travel 1.2.840.1 1.2.332.948 4891 151481 Methodi 00:00:00 00:00:[address] 3.430.2.7 0.2.7.3.698 Ho spita .3.339863 084.8 l .8 2017-12-02 2017-12-02 Outpatient Raju_P [facility] MMG 97553-3 020 [place] 04:41:00 04:41:00 0721 [facility] Results Test Description Test Time Test Comments Results Result Comments Source Home O2 Setup 2021-05-09 18:44:28 Test Item Value Reference Range Interpretation Comme nts SUPPLIER NAME (test code [facility] = 6415) SUPPLIER PHONE (test code [phone] = 6416) ORDER STATUS (test code = Delivery Successful 6417) DELIVERY NOTE (test code = 6419) REQUESTED DELIVEY DATE 05/08/2021 (test code = 6420) ITEM DESCRIPTION (test POC with Conserving Qty: 1Instructions: Patient has code = 6423) Device already been ti trated/evaluated to a specific s ettingConserving Device Settin EXPECTED DELIVERY DATE 05/09/2021 (test code = 6421) ACTUAL DELIVERY DATE 05/09/2021 (test code = 6422) [facility] [id number] 13:26:48 Test Item Value Reference Range Interpretation Comments POC glucose (test 94 mg/dL 65-99 Sketch Artist N miguel angel: Terrazas code = 55640-5) JencosmoDetodde ID: [id number] able: [facility] Notified RNChar table: No Action Needed [facility] RBC, 2 [id number] 20:49:00 Test Item Value Reference Range Interpretation Comments Product name (test code Apheresis Red Cell = 25) AS3 #2 LR Unit number (test code = [id number]) Product code (test code R2580W40 = 3092) Dispense status (test Transfused code = 24) Blood expiration date (test code = 302) Blood type code (test code = 308) Blood type (test code = O POSITIVE 1314) Compatibility (test code Compatible = 6400) [facility] [id number] 17:20:00 Test Item Value Reference Range Interpretation Comments ABO grouping (test code = 883-9) O Rh type (test code = 70592-9) POS Antibody screen (gel) (test code = NEG 890-4) [facility] 12 [id number] 15:45:11 Test Item Value Reference Range Interpretation Comments Ventricular rate (test code = 253) Atrial rate (test code = 255) NE interval (test code = 266) QRSD interval (test code = 260) QT interval (test code = 264) QTC interval (test code = 265) P axis 1 (test code = 267) QRS axis 1 (test code = 268) T wave axis (test code = 270) EKG impression (test Normal sinus code = 273) rhythm-Minimal voltage criteria for LVH, may be normal variant ( R in aVL )-Borderline ECG-In automated comparison with ECG of 18-APR-2021 08:56,-No significant change was found- [facility] [id number] 17:41:54 Test Item Value Reference Range Interpretation Comments Urine culture No growth Specimen isolate (test after 24 InformationSpe [facility] code = 03561-2) hours Source: Bud Pascal [facility] 2 Units, [id number] 17:58:00 Test Item Value Reference Range Interpretation Comments Product name (test code Platelets Aph LR IRR = 25) Path Red #2 Unit number (test code = [id number]) Product code (test code G1277J35 = 3092) Dispense status (test Transfused code = 24) Blood expiration date (test code = 302) Blood type code (test code = 308) Blood type (test code = A POSITIVE 1314) Compatibility (test code Not required = 6400) [facility] difficile [id number] 15:47:47 Test Item Value Reference Interpretation Comments Range Clostridium Toxigenic C Specimen difficile toxin diff NEGATIVE Information Specimen (test code = Source: StoolSp ecimen 1085) Site: Not other keith specified [facility] 25 hydroxy [id number] 03:39:00 Test Item Value Reference Range Interpretation Comments Vitamin D, 63 ng/mL 30-100 Vitamin D Statu s 25-hydroxy 25-OH Tami min (test code = D: Deficiency: 1989-3) < 20 ng/mLInsufficie ncy: 20 - 29 ng/mLOptimal: > or = 30 ng/mL For 25-OH Vitamin D testi ng on patients on D2-supplementat ion and patients fo r whom quantitati on of D2 and D3 fractions is required, the QuestAssureD(TM )25- OH VIT D, (D2,D 3), LC/MS/MS is recommended: or santana code 98460 (patients >2yrs).See Note 1 Note 1 For additional information, pl ease refer to http://educatio n.AuctionPay. Pointstic/ faq/UYM948 (Thi s link is being provided for informational/e duca tional purposes only.) KIEL (test code FASTING:YES FASTING: = KIEL) YES RAC (test code Performing = RAC) Organization Information: Site ID: RGA [facility] Address: [address] [place] [id number] Director: mAos Huang [facility], COMPLETE, WITH REFLEX TO [id number] 03:39:00 Test Item Value Reference Range Interpretation Comments Color, UA (test code YELLOW YELLOW = 5778-6) Appearance (test CLEAR CLEAR code = 5767-9) Specific gravity, 1.001-1.035 urine (test code = 5811-5) pH, urine (test code 5.0-8.0 = 5803-2) Glucose, urine (test NEGATIVE NEGATIVE code = 31208-3) Bilirubin, UA (test NEGATIVE NEGATIVE code = 5770-3) Ketones, UA (test TRACE NEGATIVE A code = 4704-8) Occult blood, urine NEGATIVE NEGATIVE (test code = 5794-3) Protein, UA (test TRACE NEGATIVE A code = 86859-0) Nitrite, UA (test NEGATIVE NEGATIVE code = 5802-4) Leukocyte esterase, TRACE NEGATIVE A UA (test code = 5799-2) WBC, UA (test code = 0-5 See_Comment [Autom ated 5821-4) message] The system which generated this result transmitted reference range : < OR = 5 /HPF. The reference range was not used to interpr et this result as normal/abnormal . RBC, UA (test code = NONE SEEN See_Comment [Autom ated 83810-9) message] The system which generated this result transmitted reference range : < OR = 2 /HPF. The reference range was not used to interpr et this result as normal/abnormal . Squamous epithelial NONE SEEN See_Comment [Automa adarsh cells, UA (test code message ] The = 97243-1) system which generated this result transmitted reference range : < OR = 5 /HPF. The reference range was not used to interpr et this result as normal/abnormal . Bacteria, UA (test NONE SEEN NONE SEEN /HPF code = 5769-5) Hyaline casts, UA NONE SEEN NONE SEEN /LPF (test code = 5796-8) KIEL (test code = FASTING:YES KIEL) FASTING: YES RAC (test code = Performing RAC) Organization Information: Site ID: RGA Name: [facility] Address: [address] [place] [phone] Director: Amos Huang Lab Interpretation Abnormal (test code = 56070-0) [facility]
[2021-11-10] MEDS ORDERED: FAMOTIDINE 20 MG/2 ML VIAL IV ONE (16:42)
[2021-11-10] MEDS ORDERED: NA CHLORIDE 0.9% 1,000 ML ONE (16:42)
[2021-11-10] MEDS ORDERED: Levofloxacin500mg IV 500 MG/100 ML BAG IV ONE (16:42)
--- NOTE | 2021-11-10 17:19 | RAD REPORT ---
EXAM DESCRIPTION: RAD - Chest Single View - 11/10/2021 4:53 pm CLINICAL HISTORY: Cough;COPD COMPARISON: Chest Pa And Lat (2 Views) dated 11/01/2021 FINDINGS: Lines: None. Lungs: Moderate to severe widespread bilateral airspace disease. This new since 11/01/2021. Pleural: No significant pleural effusions or pneumothorax. Cardiac: The heart size is within normal limits. Bones: No acute fractures. Other: IMPRESSION: Moderate to severe widespread airspace disease bilaterally concerning for multifocal pne umonia.
[2021-11-10 17:23] LABS: Absolute Lymphocytes (CBC) 1.6 K/uL (0.7-4.9); Lymphocytes % 7.9 % (15.3-44.8); RBC Red Blood Cell Count 2.53 M/uL (4.33-5.43)
[2021-11-10 17:27] LABS: Protime INR 1.28
[2021-11-10 17:33] LABS: Hematocrit 19.5 % (39.6-49.0)
[2021-11-10 17:43] LABS: Albumin 2.4 g/dL (3.4-5.0); Bilirubin Direct 0.2 mg/dL (0-0.2); Bilirubin Total 0.5 mg/dL (0.2-1.0); Magnesium 2.6 mg/dL (1.8-2.4); Potassium 3.8 mmol/L (3.5-5.1); Protein, Total 6.5 g/dL (6.4-8.2)
[2021-11-10 17:51] LABS: Troponin High Sensitivity 158.7 pg/mL (<58.9)
[2021-11-10 18:17] LABS: Arterial Blood Carboxyhemoglob 1.9 % (0-1.5); Blood Gas Oxyhemoglobin 85.4 % (94-97); Blood O2 Saturation 87.8 % (92-98.5)
[2021-11-10 18:22] LABS: Platelet Estimate DECR
[2021-11-10 18:25] LABS: Platelets, Giant FEW
[2021-11-10 18:27] LABS: Burr Cells FEW; Ovalocytes SLIGHT
--- NOTE | 2021-11-10 18:27 | ER ---
Nurse's Notes [facility] Name: Ernie Chakraborty Age: 76 yrs Sex: Male : 1945 Arrival Date: 11/10/2021 Time: 15:58 Bed 2 Private MD: Diagnosis: Hypoxemia;Pneumonia, unspecified organism-MULTIFOCAL PNEUMONIA, BILATERAL SEVERE;Anemia, unspecified;Dementia in other diseases classified elsewhere without behavioral disturbance;Unspecified kidney failure-ACUTE ON CHRONIC Presentation: 11/10 16:01 Chief complaint: EMS states: EMS called for difficulty breathing, family reported that ph Spo2 went down to 65% RA and they put pt on home o2, upon EMS arrival pt was 72% on 5L NC, diaphoretic and confused, A\T\A neb tx given, 125 Solu-Medrol IVP, pt placed on c-pap en route to ED and Spo2 improved to 98%,, pt recently dx w/ pneumonia, covid negative. Coronavirus screen: At this time, the client does not indicate any symptoms associated with coronavirus-19. Ebola Screen: No symptoms or risks identified at this time. Initial Sepsis Screen: Does the patient meet any 2 criteria? RR > 20 per min. Altered Mental Status. Yes Does the patient have a suspected source of infection? Yes: Productive cough/pneumonia. Risk Assessment: Do you want to hurt yourself or someone else? Patient reports no desire to harm self or others. Onset of symptoms was November 10, 2021. 16:01 Method Of Arrival: EMS: [facility] ph 16:01 Acuity: AISHA 2 ph Triage Assessment: 16:15 General: Appears in no apparent distress. uncomfortable, Behavior is cooperative, ph appropriate for age, Reports fever for 1-2 days. Pain: Denies pain. Neuro: Level of Consciousness is awake, alert, obeys commands, Oriented to person, place, Reports weakness. Cardiovascular: Reports shortness of breath, Denies chest pain, nausea, Capillary refill < 3 seconds in bilateral fingers Patient's skin is warm and dry. Respiratory: Reports shortness of breath at rest cough that is productive, labored breathing Airway is patent Respiratory effort is labored, Respiratory pattern is tachypnea Breath sounds are diminished in left posterior lower lobe, right posterior middle lobe and right posterior lower lobe Breath sounds with wheezes in mediastinum, right upper lobe and left upper lobe Onset: The symptoms/episode began/occurred gradually, the patient has moderate shortness of breath. GI: No signs and/or symptoms were reported involving the gastrointestinal system. : No signs and/or symptoms were reported regarding the genitourinary system. Derm: Skin is intact, Skin is pink, warm \T\ dry. Musculoskeletal: Circulation, motion, and sensation intact. Range of motion: intact in all extremities. 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 - Social history:: Smoking status: Patient/guardian denies using tobacco, the patient reports quitting approximately 10 years ago. Screenin:10 Abuse screen: Denies threats or abuse. Denies injuries from another. Nutritional ph screening: No deficits noted. Tuberculosis screening: No symptoms or risk factors identified. Fall Risk None identified. Assessment: 16:09 Reassessment: code sepsis. ph 17:31 Reassessment: Spo2 97% on NRB mask but breathing remains labored, c-pap mask placed to ph pt, Spo2 93% Fio2 35%. 18:20 Reassessment: Patient appears in no apparent distress at this time. Patient and/or ph family updated on plan of care and expected duration. Pain level reassessed. Pt awake and alert, Dr Shearer at bedside for rectal exam. 19:05 Reassessment: Patient appears in no apparent distress at this time. Patient and/or ph family updated on plan of care and expected duration. Pain level reassessed. Pt awake and alert, c-pap remains in place, work of breathing noted to have improved, states that he needs to have a BM, placed on bedpan, family at bedside. 22:20 Cardiovascular: Rhythm is regular. 5 Vital Signs: 16:01 BP 118 / 45; Pulse 89; Resp 26; Temp 97.7(TE); Pulse Ox 87% on R/A; Weight 79.38 kg; ph 16:30 BP 98 / 56; Pulse 94; Resp 24; Pulse Ox 96% on Non-rebreather mask; ph 17:00 BP 78 / 49; Pulse 91; Resp 22; Pulse Ox 100% on Non-rebreather mask; ph 17:31 BP 91 / 59; Pulse 89; Resp 28; Pulse Ox 93% on 35% BiPAP; ph 18:21 BP 97 / 65; Pulse 81; Resp 24; Pulse Ox 98% on BiPAP; ph 16:01 improved to 100% on neb mask ph ED Course: 15:58 Patient arrived in ED. ds1 16:00 Arm band placed on Patient placed in an exam room, on a stretcher. ll1 16:01 Valery Lange RN is Primary Nurse. ph 16:09 Triage completed. ph 16:11 Darrly Shearer MD is Attending Physician. arnol 16:45 Maintain EMS IV. Dressing intact. Good blood return noted. Site clean \T\ dry. Gauge \T\ ph site: 22 LFA. IV is patent, is intact, with fluids infusing freely, with good blood return. 16:53 XRAY Chest (1 view) In Process Unspecified. EDMS 17:14 EKG done, by ED staff, reviewed by Darryl Shearer MD. jw7 17:31 Patient has correct armband on for positive identification. Bed in low position. Call ph light in reach. Side rails up X 1. business systems consultant on. Pulse ox on. NIBP on. Door closed. Noise minimized. Warm blanket given. Pillow given. 18:20 Cathy Lara MD is Hospitalizing Provider. arnol 18:23 Inserted saline lock: 20 gauge in right forearm, using aseptic technique. ww 19:25 No provider procedures requiring assistance completed. Patient admitted, IV remains in ph place. 21:57 Hubbard cath inserted, using sterile technique, 16 Fr., by il, balloon inflated, to sm5 gravity drainage, clamped. Administered Medications: 16:15 Drug: Albuterol - atroVENT (ipratropium) (3:1) (2.5 mg - 0.5 mg) 3 ml Route: Nebulizer; ph 19:31 Follow up: Response: No adverse reaction ph 16:22 Not Given (given by EMSs): SOLU-Medrol (methylPrednisoLONE) 125 mg IVP once ph 16:59 Drug: NS 0.9% 500 ml Route: IV; Rate: bolus; Site: left forearm; ph 17:40 Follow up: Response: No adverse reaction; IV Status: Completed infusion; IV Intake: ph 500ml 16:59 Drug: levofloxacin 500 mg Volume: 100 ml; Route: IVPB; Infused Over: 60 mins; Site: ph left forearm; 18:00 Follow up: Response: No adverse reaction; IV Status: Completed infusion; IV Intake: ph 100ml 16:59 Drug: Pepcid (famotidine) 20 mg Route: IVP; Site: left forearm; ph 19:31 Follow up: Response: No adverse reaction ph 17:45 Drug: NS 0.9% 1000 ml Route: IV; Rate: 125 ml/hr; Site: left forearm; ph 19:31 Follow up: Response: No adverse reaction; IV Status: Infusion continued upon admission ph 19:33 Drug: vancoMYCIN 1 grams Route: IVPB; Infused Over: 2 hrs; Site: left antecubital; kd3 22:24 Follow up: Rate change 250 ml; IV Status: Completed infusion 5 19:33 Drug: ProTONIX (pantoprazole) 40 mg Route: IVP; Site: left antecubital; kd3 22:24 Follow up: Response: No adverse reaction 5 19:33 Drug: Rocephin (cefTRIAXone) 1 grams Route: IV; Rate: per protocol; Site: left kd3 antecubital; 19:33 Follow up: IV Status: Completed infusion kd3 22:23 Follow up: Response: No adverse reaction sm5 21:56 Drug: Viscous Lidocaine Liquid (4 %) 5 ml Route: Mucous Membrane; 5 22:24 Follow up: Response: No adverse reaction 5 Intake: 17:40 IV: 500ml; Total: 500ml. ph 18:00 IV: 100ml; Total: 600ml. ph Outcome: 18:23 Decision to Hospitalize by Provider. [facility] 22:22 Admitted to ICU accompanied by nurse, room 2, with oxygen, on monitor. [facility] 22:22 Condition: stable 22:22 Discharge instructions given to patient, Instructed on the need for admit. 22:23 Patient left the ED. 5 Signatures: Dispatcher [employer] EDMS Darryl Shearer MD MD cha Sanford, Demi ds1 Valery Lange RN RN ph Lewis, Lynsay, RN RN ll1 Sarai Gilliam RN RN kd3 Jessica Julian RN RN sm5 Jacqui Escobar RN RN ww Waits, Jodi 7 Corrections: (The following items were deleted from the chart) 17:31 17:15 Allergies: No Known Allergies; ph ph
--- NOTE | 2021-11-10 18:27 | EDPHYS ---
Physician Documentation [facility] Name: Ernie Chakraborty Age: 76 yrs Sex: Male : 1945 Arrival Date: 11/10/2021 Time: 15:58 Bed 2 Private MD: ED Physician Darryl Shearer HPI: 11/10 18:09 This 76 yrs old Male presents to ER via EMS with complaints of Shortness Of arnol Breath. 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 - Social history:: Smoking status: Patient/guardian denies using tobacco, the patient reports quitting approximately 10 years ago. ROS: 18:16 Constitutional: Negative for fever, chills, and weight loss, Eyes: Negative for injury, arnol pain, redness, and discharge, ENT: Negative for injury, pain, and discharge, Neck: Negative for injury, pain, and swelling, Cardiovascular: Negative for chest pain, palpitations, and edema, Back: Negative for injury and pain, : Negative for injury, bleeding, discharge, and swelling, MS/Extremity: Negative for injury and deformity, Neuro: Negative for headache, weakness, numbness, tingling, and seizure, Psych: Negative for depression, anxiety, suicide ideation, homicidal ideation, and hallucinations, Allergy/Immunology: Negative for hives, rash, and allergies, Endocrine: Negative for neck swelling, polydipsia, polyuria, polyphagia, and marked weight changes, Hematologic/Lymphatic: Negative for swollen nodes, abnormal bleeding, and unusual bruising. 18:16 Cardiovascular: Positive for orthopnea, palpitations. 18:16 Respiratory: Positive for cough, dyspnea on exertion, shortness of breath, at rest. 18:16 Skin: Positive for pallor. Exam: 18:16 Head/Face: Normocephalic, atraumatic. Eyes: Pupils equal round and reactive to light, arnol extra-ocular motions intact. Lids and lashes normal. Conjunctiva and sclera are non-icteric and not injected. Cornea within normal limits. Periorbital areas with no swelling, redness, or edema. ENT: Nares patent. No nasal discharge, no septal abnormalities noted. Tympanic membranes are normal and external auditory canals are clear. Oropharynx with no redness, swelling, or masses, exudates, or evidence of obstruction, uvula midline. Mucous membranes moist. Neck: Trachea midline, no thyromegaly or masses palpated, and no cervical lymphadenopathy. Supple, full range of motion without nuchal rigidity, or vertebral point tenderness. No Meningismus. Chest/axilla: Normal chest wall appearance and motion. Nontender with no deformity. No lesions are appreciated. Abdomen/GI: Soft, non-tender, with normal bowel sounds. No distension or tympany. No guarding or rebound. No evidence of tenderness throughout. Back: No spinal tenderness. No costovertebral tenderness. Full range of motion. Male : Normal genitalia with no discharge or lesions. MS/ Extremity: Pulses equal, no cyanosis. Neurovascular intact. Full, normal range of motion. Psych: Awake, alert, with orientation to person, place and time. Behavior, mood, and affect are within normal limits. 18:16 Cardiovascular: Rate: normal, Rhythm: regular, Pulses: Pulses are 4+ in bilateral radial, brachial, femoral, popliteal, posterior tibial and and dorsalis pedis arteries.. Heart sounds: normal, Edema: is not appreciated, JVD: is not appreciated. 18:16 ECG was reviewed by the Attending Physician. 18:16 Respiratory: moderate respiratory distress is noted, Respirations: labored breathing, that is mild, Breath sounds: decreased breath sounds, that are moderate, are located in both bases, rhonchi, that are moderate, are scattered, stridor, is not appreciated, + upper airway congestion. Respiratory rate: 28 19:11 Abdomen/GI: Rectal exam: is unremarkable, Prostate: normal, rectal tone normal, Stool: arnol guaiac negative, mass, is not appreciated, swelling, is not appreciated, tenderness, is not appreciated, fecal impaction, is not appreciated, Liver: no appreciated palpable abnormalities, Hernia: not appreciated. Vital Signs: 16:01 BP 118 / 45; Pulse 89; Resp 26; Temp 97.7(TE); Pulse Ox 87% on R/A; Weight 79.38 kg; ph 16:30 BP 98 / 56; Pulse 94; Resp 24; Pulse Ox 96% on Non-rebreather mask; ph 17:00 BP 78 / 49; Pulse 91; Resp 22; Pulse Ox 100% on Non-rebreather mask; ph 17:31 BP 91 / 59; Pulse 89; Resp 28; Pulse Ox 93% on 35% BiPAP; ph 18:21 BP 97 / 65; Pulse 81; Resp 24; Pulse Ox 98% on BiPAP; ph 16:01 improved to 100% on neb mask ph MDM: 16:11 Patient medically screened. arnol 18:23 Differential diagnosis: Anemia Anxiety Reaction asthma, Bronchitis CHF exacerbation, arnol Chronic Obstructive Pulmonary Disease Myocardial Infarction pneumonia, pulmonary edema, Pulmonary Embolism reactive airway disease, Sepsis Unstable Angina. Antibiotic administration: Levaquin and Rocephin given, VANCO. The patient's Wells Deep Vein Thrombosis Score was calculated as follows: Heart Rate >100 BPM (1.5 Pts) Total Score: 0-2 Pts- Low Risk. The patient's pulmonary embolism risk score was calculated as follows: the patients heart rate is greater than 100 beats per minute (1.5 Pts) Total Score: 0-2 points. This patient was found to be at low risk for a pulmonary embolism by using the Well's assessment criteria. Immunization status: Pneumococcal vaccine: Influenza vaccine: Data reviewed: vital signs, nurses notes, EMS record, lab test result(s), EKG, radiologic studies, plain films. Data interpreted: monitoring manager: rate is 81 beats/min, rhythm is regular, Pulse oximetry: on room air is 98 %. Arterial blood gas:. Test interpretation: by ED physician or midlevel provider: ECG, plain radiologic studies. Counseling: I had a detailed discussion with the patient and/or guardian regarding: the historical points, exam findings, and any diagnostic results supporting the discharge/admit diagnosis, lab results, radiology results, the need for further work-up and treatment in the hospital. 11/10 16:16 Order name: Basic Metabolic Panel; Complete Time: 18:05 [facility] 11/10 16:16 Order name: CBC with Diff; Complete Time: 18:42 [facility] 11/10 16:16 Order name: LFT's; Complete Time: 18:05 11/10 16:16 Order name: Magnesium; Complete Time: 18:05 11/10 16:16 Order name: NT PRO-BNP; Complete Time: 18:05 arnol 11/10 16:16 Order name: PT-INR; Complete Time: 18:05 11/10 16:16 Order name: Troponin HS; Complete Time: 18:05 [facility] 11/10 16:16 Order name: Lactate; Complete Time: 18:05 [facility] 11/10 16:16 Order name: Procalcitonin; Complete Time: 18:05 [facility] 11/10 16:16 Order name: Blood Culture Adult (2) [facility] 11/10 16:16 Order name: Lipase; Complete Time: 18:05 [facility] 11/10 16:16 Order name: ABG; Complete Time: 18:19 [facility] 11/10 16:16 Order name: COVID-19/FLU A+B/RSV (Document "Date of Onset" if Symptomatic) [facility] 11/10 17:34 Order name: Manual Differential; Complete Time: 18:42 [facility] 11/10 18:14 Order name: PRBC [facility] 11/10 18:15 Order name: ABO/RH typing [facility] 11/10 18:15 Order name: Antibody Screen [facility] 11/10 18:40 Order name: Bb Add On sp 11/10 19:05 Order name: ABO/RH no charge; Complete Time: 19:10 [facility] 11/10 20:19 Order name: Lactate Sepsis 2 HR Follow-up [facility] 11/10 21:07 Order name: CBC with Automated Diff [facility] 11/10 21:07 Order name: CBC with Automated Diff [facility] 11/10 21:07 Order name: Comprehensive Metabolic Panel [facility] 11/10 21:07 Order name: Comprehensive Metabolic Panel [facility] 11/10 21:07 Order name: Lactate [facility] 11/10 21:07 Order name: Lactate [facility] 11/10 21:07 Order name: Magnesium [facility] 11/10 21:07 Order name: Magnesium [facility] 11/10 21:07 Order name: NT PRO-BNP [facility] 11/10 16:16 Order name: XRAY Chest (1 view); Complete Time: 18:05 [facility] 11/10 16:16 Order name: EKG; Complete Time: 16:18 [facility] 11/10 16:16 Order name: Cardiac monitoring; Complete Time: 17:00 [facility] 11/10 16:16 Order name: EKG - Nurse/Tech; Complete Time: 17:15 [facility] 11/10 16:16 Order name: IV Saline Lock; Complete Time: 17:00 [facility] 11/10 16:16 Order name: Labs collected and sent; Complete Time: 17:00 [facility] 11/10 16:16 Order name: O2 Per Protocol; Complete Time: 17:00 [facility] 11/10 16:16 Order name: O2 Sat Monitoring; Complete Time: 17:00 [facility] 11/10 16:16 Order name: BIPAP [facility] 11/10 18:08 Order name: IV Saline Lock - Large Bore; Complete Time: 18:19 [facility] 11/10 18:14 Order name: IV Saline Lock - Large Bore; Complete Time: 18:19 [facility] 11/10 20:01 Order name: Hubbard; Complete Time: 21:56 [facility] 11/10 21:07 Order name: CONS Physician Consult [facility] 11/10 21:07 Order name: Heart Healthy [facility] 11/10 21:07 Order name: NT PRO-BNP [facility] 11/10 21:07 Order name: Phosphorus [facility] 11/10 21:07 Order name: Phosphorus [facility] 11/10 21:08 Order name: Chest Single View [facility] 11/10 21:08 Order name: Chest Single View ED[facility] EC:16 Rate is 91 beats/min. Rhythm is regular. QRS Tolley is Normal. MT interval is normal. QRS arnol interval is normal. QT interval is normal. No Q waves. T waves are Normal. No ST changes noted. Clinical impression: Abnormal EKG without significant change, LVH, and No evidence of ischemia. Interpreted by me. Reviewed by me. Administered Medications: 16:15 Drug: Albuterol - atroVENT (ipratropium) (3:1) (2.5 mg - 0.5 mg) 3 ml Route: Nebulizer; ph 19:31 Follow up: Response: No adverse reaction ph 16:22 Not Given (given by EMSs): SOLU-Medrol (methylPrednisoLONE) 125 mg IVP once ph 16:59 Drug: NS 0.9% 500 ml Route: IV; Rate: bolus; Site: left forearm; ph 17:40 Follow up: Response: No adverse reaction; IV Status: Completed infusion; IV Intake: ph 500ml 16:59 Drug: levofloxacin 500 mg Volume: 100 ml; Route: IVPB; Infused Over: 60 mins; Site: ph left forearm; 18:00 Follow up: Response: No adverse reaction; IV Status: Completed infusion; IV Intake: ph 100ml 16:59 Drug: Pepcid (famotidine) 20 mg Route: IVP; Site: left forearm; ph 19:31 Follow up: Response: No adverse reaction ph 17:45 Drug: NS 0.9% 1000 ml Route: IV; Rate: 125 ml/hr; Site: left forearm; ph 19:31 Follow up: Response: No adverse reaction; IV Status: Infusion continued upon admission ph 19:33 Drug: vancoMYCIN 1 grams Route: IVPB; Infused Over: 2 hrs; Site: left antecubital; kd3 22:24 Follow up: Rate change 250 ml; IV Status: Completed infusion sm5 19:33 Drug: ProTONIX (pantoprazole) 40 mg Route: IVP; Site: left antecubital; kd3 22:24 Follow up: Response: No adverse reaction sm5 19:33 Drug: Rocephin (cefTRIAXone) 1 grams Route: IV; Rate: per protocol; Site: left kd3 antecubital; 19:33 Follow up: IV Status: Completed infusion kd3 22:23 Follow up: Response: No adverse reaction sm5 21:56 Drug: Viscous Lidocaine Liquid (4 %) 5 ml Route: Mucous Membrane; sm5 22:24 Follow up: Response: No adverse reaction sm5 Disposition Summary: 11/10/21 18:23 Hospitalization Ordered Hospitalization Status: Inpatient Admission arnol Provider: Cathy Lara cha Location: Intensive Care Unit arnol Condition: Serious arnol Problem: new arnol Symptoms: have improved arnol Bed/Room Type: Standard [facility] Room Assignment: 2-(11/10/21 21:12) Diagnosis - Hypoxemia arnol - Pneumonia, unspecified organism - MULTIFOCAL PNEUMONIA, BILATERAL SEVERE arnol - Anemia, unspecified arnol - Dementia in other diseases classified elsewhere without behavioral disturbance arnol - Unspecified kidney failure - ACUTE ON CHRONIC arnol Forms: - Medication Reconciliation Form arnol - SBAR form arnol Signatures: Dispatcher [employer] EDGA Colleen Ford RN Darryl Cummins MD MD cha Hall, Patricia RN RN Sarai Gilliam RN RN 3 Jessica Julian RN RN 5 Corrections: (The following items were deleted from the chart) 17:31 17:15 Allergies: No Known Allergies; ph ph 18:30 17:49 TYPE AND SCREEN+[id number].LAB.BRZ ordered. EDGA EDMS 21:12 18:23 arnol
[2021-11-10 18:28] LABS: Anisocytosis 1+; Blood Morphology Comment NOTED (NOT SEEN); Poikilocytosis 1+; Polychromasia 1+
[2021-11-10] MEDS ORDERED: NA CHLORIDE 0.9% 500 ML ONE (18:41)
[2021-11-10] MEDS ORDERED: PANTOPRAZOLE 40 MG INJ ONE (18:41)
[2021-11-10] MEDS ORDERED: VANCOMYCIN 1 GM/VIAL ONE (18:41)
[2021-11-10 19:10] LABS: SARS-COV-2 RT PCR NEGATIVE (NEGATIVE)
[2021-11-10] MEDS ORDERED: CEFTRIAXONE 1000 MG/VIAL ONE (19:18)
[2021-11-10] MEDS ORDERED: ONDANSETRON 4 MG/2 ML VIAL IV PRN (20:56)
[2021-11-10] MEDS ORDERED: NA CHLORIDE 0.9% 1,000 ML IV SCH (21:00)
[2021-11-10] MEDS ORDERED: VANCOMYCIN 1.25 GM in NA CHLORIDE 0.9% 250 ML IVPB SCH (21:00)
[2021-11-10] MEDS ORDERED: LIDOCAINE VISCOUS 2% SOLN 15 ML UDC ONE (21:17)
[2021-11-10] MEDS ORDERED: VANCOMYCIN 1 GM in NA CHLORIDE 0.9% 250 ML IVPB SCH (23:00)
[2021-11-10] MEDS ORDERED: VANCOMYCIN 1.5 GM in NA CHLORIDE 0.9% 500 ML IVPB SCH (23:00)
[2021-11-10] MEDS ORDERED: VANCOMYCIN 2 GM in NA CHLORIDE 0.9% 500 ML IV ONE (23:00)
--- NOTE | 2021-11-10 23:29 | P.HP ---
Certification for Inpatient Patient admitted to: Inpatient With expected LOS: >2 Midnights Patient will require the following post-hospital care: None Practitioner: I am a practitioner with admitting privileges, knowledge of patient current condition, hospital course, and medical plan of care. Services: Services provided to patient in accordance with Admission requirements found in Title 42 Section 412.3 of the Code of Federal Regulations Patient History Date of Service: 11/10/21 Reason for admission: Multifocal pneumonia with secondary acute COPD exacerbation History of Present Illness: Patient is a 76-year-old gentleman who came to the hospital with difficulty breathing. Patient is mainly Cambodian-speaking and has a difficult time hearing. Patient has a history of COPD and was diagnosed with Covid-19 pneumonia a few months ago. He recovered and was discharged home on oxygen. He also has developed worsening dementia per his . She states that he has been breathing poorly for the last 5 days but over the last 2 days his respiratory status has worsened. He became very tachypneic and he brought him into the emergency room. His chest x-ray revealed multifocal pneumonia. He was also severely hypoxic. He was placed on BiPAP support. Family wanted patient transferred to [facility] because that is where all his doctors are located. However, there is no bed available. We went ahead and admitted him to our ICU. Family does not want any aggressive intervention at this time. Patient will be admitted for IV antibiotic therapy, along with COPD treatment. Allergies codeine Allergy (Verified 11/10/21 22:44) Nausea/Vomiting - Past Medical/Surgical History -: Alzheimer's dementia -: COPD -: Covid-19 pneumonia Past Surgical History: Patient denies surgical history - Family History Father Family History: Reviewed- Non-Contributory - Social History Smoking Status: Former smoker Alcohol use: No CD- Drugs: No Review of Systems 10-point ROS is otherwise unremarkable Physical Examination - Vital Signs Temperature: 99 F Blood Pressure: 150/80 Pulse: 110 Respirations: 20 Pulse Ox (%): 92 - Physical Exam General: Alert, In no apparent distress, Demented, Other (Difficulty hearing) HEENT: Atraumatic, PERRLA, Mucous membr. moist/pink, EOMI, Sclerae nonicteric Neck: Supple, 2+ carotid pulse no bruit, No LAD, Without JVD or thyroid abnormality Respiratory: Diminished, Expiratory wheezes Cardiovascular: Regular rate/rhythm, Normal S1 S2, Systolic murmur Gastrointestinal: Normal bowel sounds, Soft and benign, Non-distended, No tenderness Musculoskeletal: No clubbing, No swelling, No tenderness Integumentary: No rashes Neurological: Normal tone, Sensation intact, Cranial nerves 3-12 intact, Normal affect, Abnormal gait, Abnormal speech Lymphatics: No axilla or inguinal lymphadenopathy - Studies Laboratory Data (last 24 hrs) 11/10/21 17:05: PT 14.2 H, INR 1.28 11/10/21 17:05: WBC 20.20 H*, Hgb 5.9 L*, Hct 19.5 L*, Plt Count 64 L 11/10/21 17:05: Sodium 137, Potassium 3.8, BUN 39 H, Creatinine 1.42 H, Glucose 197 H, Magnesium 2.6 H, Total Bilirubin 0.5, AST 24, ALT 24, Alkaline Phosphatase 114, Lipase 61 L Assessment & Plan - Problems (Diagnosis) (1) Multifocal pneumonia Current Visit: Yes Status: Acute (2) Acute respiratory failure with hypoxia Current Visit: Yes Status: Acute (3) COPD with acute exacerbation Current Visit: Yes Status: Acute (4) History of COVID-19 Current Visit: Yes Status: Acute - Plan Plan: 1. Continue with IV antibiotics 2. Awaiting sputum and blood culture 3. Repeat chest x-ray 4. CT scan of the chest if pneumonia is not improving 5. Pulmonary consultation 6. Continue with nebs along with IV steroids 7. O2 per protocol 8. Continue with gentle hydration 9. Repeat labs including CBC and renal function in a.m. 10. Patient has a do not attempt resuscitation(DNAR) 11. GI and DVT prophylaxis Discharge Plan: Home Plan to discharge in: Greater than 2 days - Advance Directives Does patient have a Living Will: No Does patient have a Durable POA for Healthcare: No - Code Status/Comfort Care Code Status Assessed: Yes Code Status: Full Code Critical Care: No Time Spent Managing PTS Care (In Minutes): 45
[2021-11-10] MEDS: METHYLPREDNISOLONE 125 MG INJ IV SCH (23:48)
[2021-11-11] MEDS ORDERED: MORPHINE 4 MG/ML SYR IV PRN (00:15)
[2021-11-11] MEDS ORDERED: BENZONATATE 100 MG CAP PO PRN (00:15)
[2021-11-11] MEDS ORDERED: Meropenem 500 MG in NA CHLORIDE 0.9% 100 ML IV SCH (01:00)
[2021-11-11] MEDS: ALBUTEROL 2.5 MG/3 ML NEB SOL NEB SCH ×4 (01:15→19:23)
[2021-11-11] MEDS: IPRATROPIUM BROM 0.5MG/2.5ML NEB SCH ×4 (01:15→19:23)
[2021-11-11] MEDS: LORazepam 2 MG/ML VIAL IV PRN ×2 (04:45→21:22)
[2021-11-11] MEDS ORDERED: NA CHLORIDE 0.9% 1,000 ML IV SCH (05:00)
[2021-11-11] MEDS: METHYLPREDNISOLONE 125 MG INJ IV SCH (05:16)
[2021-11-11 06:55] LABS: MPV 8.7 fL (7.6-11.3)
[2021-11-11 07:08] LABS: Albumin 2.4 g/dL (3.4-5.0); Bilirubin Total 0.5 mg/dL (0.2-1.0); Magnesium 2.7 mg/dL (1.8-2.4); Phosphorus 3.7 mg/dL (2.5-4.9); Potassium 4.7 mmol/L (3.5-5.1); Protein, Total 6.6 g/dL (6.4-8.2)
[2021-11-11 08:21] LABS: Absolute Lymphocytes (CBC) 2.1 K/uL (0.7-4.9); Hematocrit 23.6 % (39.6-49.0); Lymphocytes % 9.1 % (15.3-44.8); RBC Red Blood Cell Count 2.99 M/uL (4.33-5.43)
--- NOTE | 2021-11-11 08:31 | RAD REPORT ---
EXAM DESCRIPTION: RAD - Chest Single View - 11/11/2021 6:20 am CLINICAL HISTORY: pneumonia Chest pain. COMPARISON: Chest Single View dated 11/10/2021; Chest Pa And Lat (2 Views) dated 11/01/2021 FINDINGS: Portable technique limits examination quality. Extensive bilateral pulmonary opacities are present, grossly unchanged, likely representing pneumonia . The heart is upper limit of normal in size.
--- NOTE | 2021-11-11 08:35 | P.CNS ---
Date of Consult: 11/11/21 Reason for Consult: Respiratory failure Chief Complaint: Multifocal pneumonia with secondary acute COPD exacerbation History of Present Illness: Patient is 76 years of age admitted with respiratory failure history of COVID and COPD was discharged on home oxygen has becoming progressively worse admitted here with multifocal pneumonia placed on a BiPAP has dementia currently stable oxygenation satisfactory chest x-ray shows bilateral interstitial changes Allergies codeine Allergy (Verified 11/10/21 22:44) Nausea/Vomiting - Past Medical/Surgical History -: Alzheimer's dementia -: COPD -: Covid-19 pneumonia - Family History Father Family History: Reviewed- Non-Contributory - Social History Alcohol use: No CD- Drugs: No Review of Systems is unable to be obtained Physical Examination Temp Pulse Resp BP Pulse Ox 96.7 F L 74 27 H 113/57 L 95 11/11/21 04:00 11/11/21 06:00 11/11/21 06:00 11/11/21 06:00 11/11/21 06:00 General: Unresponsive HEENT: Atraumatic Neck: Supple Respiratory: Crackles/rales (Bilateral) Cardiovascular: No edema, Regular rate/rhythm, Normal S1 S2 Gastrointestinal: Normal bowel sounds, Soft and benign Musculoskeletal: No clubbing, No swelling Laboratory Data (last 24 hrs) 11/10/21 17:05: PT 14.2 H, INR 1.28 11/10/21 17:05: WBC 20.20 H*, Hgb 5.9 L*, Hct 19.5 L*, Plt Count 64 L 11/10/21 17:05: Sodium 137, Potassium 3.8, BUN 39 H, Creatinine 1.42 H, Glucose 197 H, Magnesium 2.6 H, Total Bilirubin 0.5, AST 24, ALT 24, Alkaline Phosphatase 114, Lipase 61 L - Problems (1) Acute respiratory failure with hypoxia Current Visit: Yes Status: Acute Plan: Patient is 76 years of age admitted with respiratory failure bilateral interstitial changes on BiPAP try high flow on nasal cannula oxygen history of dementia COPD recent Covid patient is very anemic scheduled to be transfused renal function improving continue with steroids patient has thrombocytopenia severe anemia no history of GI bleeding add IV levofloxacin for atypical coverage continue with steroids DC Lovenox
[2021-11-11] MEDS: METHYLPREDNISOLONE 40 MG INJ IV SCH ×2 (08:58→18:04)
[2021-11-11] MEDS: FUROSEMIDE 20 MG/ 2ML VIAL IV SCH (08:58)
[2021-11-11] MEDS: FAMOTIDINE 20 MG/2 ML VIAL IV SCH ×2 (08:58→21:23)
[2021-11-11] MEDS: Levofloxacin 750mg IV 750 MG/150 ML BAG IV SCH (08:59)
[2021-11-11] MEDS ORDERED: ENOXAPARIN 40 MG/0.4 ML SQ SCH (09:00)
[2021-11-11 09:06] LABS: Platelet Estimate DECR
[2021-11-11 09:10] LABS: Anisocytosis 1+; Blood Morphology Comment NOTED (NOT SEEN); Hypochromasia 2+; Poikilocytosis 2+; Polychromasia SLIGHT
[2021-11-11 13:19] LABS: Absolute Lymphocytes (CBC) 2.4 K/uL (0.7-4.9); Hematocrit 25.7 % (39.6-49.0); Lymphocytes % 10.3 % (15.3-44.8); MPV 8.7 fL (7.6-11.3); RBC Red Blood Cell Count 3.19 M/uL (4.33-5.43)
[2021-11-11 13:37] LABS: Albumin 2.4 g/dL (3.4-5.0); Bilirubin Total 0.5 mg/dL (0.2-1.0); Magnesium 2.6 mg/dL (1.8-2.4); Potassium 4.7 mmol/L (3.5-5.1); Protein, Total 6.8 g/dL (6.4-8.2)
--- NOTE | 2021-11-11 13:58 | ECHO ---
HEIGHT: 5 ft 8 in WEIGHT: 175 lb 3.2 oz DATE OF STUDY: 11/11/[address]: Cathy Lara MD 2-DIMENSIONAL: YES M.MODE: YES DOPPLER: YES COLOR FLOW: YES TDS: NO PORTABLE: YES DEFINITY: NO BUBBLE STUDY: NO DIAGNOSIS: CONGESTIVE HEART FAILURE CARDIAC HISTORY: CATHERIZATION: NO SURGERY: NO PROSTHETIC VALVE: NO PACEMAKER: NO MEASUREMENTS (cm) DIASTOLIC (NORMALS) SYSTOLIC (NORMALS) IVSd 1.0 (0.6-1.2) LA Diam 3.5 (1.9-4.0) LVEF 55-60% LVIDd 4.4 (3.5-5.7) LVIDs 3.4 (2.0-3.5) %FS 22% LVPWd 1.2 (0.6-1.2) Ao Diam 3.0 (2.0-3.7) 2 DIMENSIONAL ASSESSMENT: RIGHT ATRIUM: NORMAL LEFT ATRIUM: NORMAL RIGHT VENTRICLE: NORMAL LEFT VENTRICLE: NORMAL TRICUSPID VALVE: MITRAL VALVE: PULMONIC VALVE: AORTIC VALVE: HEAVILY CALCIFIED PERICARDIAL EFFUSION: NONE AORTIC ROOT: NORMAL LEFT VENTRICULAR WALL MOTION: NORMAL DOPPLER/COLOR FLOW: SEE BELOW COMMENTS: NORMAL LEFT VENTRICULAR EJECTION FRACTION 55-60%. MODERATE TO SEVERE AORTIC VALVE STENOSIS. MILD TRICUSPID, MITRAL AND AORTIC REGURGITATION. PULMONARY HYPERTENSION WITH RIGHT VENTRICULAR SYSTOLIC PRESSURE OF 50 PLUS RIGHT ATRIAL PRESSURE. TECHNOLOGIST: Mandeep ROMEO
--- NOTE | 2021-11-11 14:04 | P.PN ---
Subjective Date of Service: 11/11/21 Chief Complaint: Multifocal pneumonia with secondary acute COPD exacerbation Patient wheezing during my assessment today. He is currently on high flow oxygen. He is coughing intermittently, cough is nonproductive. He is awake and communicating meaningfully. Physical Examination - Vital Signs Temperature: 96.7 F Blood Pressure: 112/62 Pulse: 81 Respirations: 24 Pulse Ox (%): 94 - Physical Exam General: Alert, Mild distress (Respiratory distress) HEENT: Other (HFNC) Neck: JVD not distended Respiratory: Expiratory wheezes (Bilateral), Other (No crackles) Cardiovascular: No edema, Regular rate/rhythm, Normal S1 S2, No murmurs Gastrointestinal: Normal bowel sounds, Soft and benign, Non-distended, No tenderness Musculoskeletal: No swelling Integumentary: No rashes, No cyanosis Neurological: Normal strength at 5/5 x4 extr, Cranial nerves 3-12 intact - Studies Laboratory Data (last 24 hrs) 11/10/21 17:05: PT 14.2 H, INR 1.28 11/10/21 17:05: WBC 20.20 H*, Hgb 5.9 L*, Hct 19.5 L*, Plt Count 64 L 11/10/21 17:05: Sodium 137, Potassium 3.8, BUN 39 H, Creatinine 1.42 H, Glucose 197 H, Magnesium 2.6 H, Total Bilirubin 0.5, AST 24, ALT 24, Alkaline Phosphatase 114, Lipase 61 L Assessment And Plan - Current Problems (Diagnosis) (1) Acute respiratory failure with hypoxia Current Visit: Yes Status: Acute (2) COPD with acute exacerbation Current Visit: Yes Status: Acute (3) History of COVID-19 Current Visit: Yes Status: Acute (4) Multifocal pneumonia Current Visit: Yes Status: Acute (5) Thrombocytopenia Current Visit: Yes Status: Acute (6) Elevated troponin Current Visit: Yes Status: Acute - Plan Continue current antibiotics-Levaquin and meropenem. Schedule bronchodilators. We will start IV steroid. Follow blood cultures. Sputum culture. Wean oxygen. Monitor CBC to follow thrombocytopenia. SCD for DVT prophylaxis. No anticoagulation. Pulmonary input appreciated. Elevated troponin likely secondary to demand ischemia. Troponin trended flat, no ACS. Obtain echocardiogram.
[2021-11-11] MEDS: Meropenem 1,000 MG in NA CHLORIDE 0.9% 100 ML IV SCH ×2 (14:45→18:04)
[2021-11-11 18:50] LABS: White Blood Cell Scan OK (OK)
[2021-11-11 18:53] LABS: Anisocytosis 2+; Blood Morphology Comment NOTED (NOT SEEN); Platelet Estimate DECR; Poikilocytosis 2+
[2021-11-11] MEDS ORDERED: VANCOMYCIN 1.5 GM in NA CHLORIDE 0.9% 500 ML IVPB SCH (21:00)
[2021-11-11] MEDS ORDERED: ZIPRASIDONE MESYLA 20 MG/VIAL IM ONE (23:02)
[2021-11-11] MEDS: WATER FOR INJ,STERILE 10 ML IM PRN (23:30)
[2021-11-12] MEDS: Meropenem 1,000 MG in NA CHLORIDE 0.9% 100 ML IV SCH ×2 (00:59→09:02)
[2021-11-12] MEDS: METHYLPREDNISOLONE 40 MG INJ IV SCH ×3 (01:00→20:23)
[2021-11-12] MEDS: ALBUTEROL 2.5 MG/3 ML NEB SOL NEB SCH ×2 (01:48→07:50)
[2021-11-12] MEDS: IPRATROPIUM BROM 0.5MG/2.5ML NEB SCH ×2 (01:48→07:50)
[2021-11-12 05:12] LABS: Absolute Lymphocytes (CBC) 2.8 K/uL (0.7-4.9); Lymphocytes % 10.7 % (15.3-44.8); MPV 12.2 fL (7.6-11.3); RBC Red Blood Cell Count 3.31 M/uL (4.33-5.43)
[2021-11-12 05:26] LABS: Magnesium 2.9 mg/dL (1.8-2.4); Potassium 5.1 mmol/L (3.5-5.1)
[2021-11-12] MEDS ORDERED: NA CHLORIDE 0.9% 1,000 ML IV ONE (09:01)
[2021-11-12] MEDS: FAMOTIDINE 20 MG/2 ML VIAL IV SCH ×2 (09:02→20:23)
[2021-11-12] MEDS: FUROSEMIDE 20 MG/ 2ML VIAL IV SCH (09:02)
[2021-11-12] MEDS: Levofloxacin 750mg IV 750 MG/150 ML BAG IV SCH (09:03)
--- NOTE | 2021-11-12 10:22 | P.PN ---
Subjective Date of Service: 11/12/21 Chief Complaint: Multifocal pneumonia with secondary acute COPD exacerbation Subjective: Other (Downtrending PLT count. Hematuria. Drowsy) Physical Examination - Vital Signs Temperature: 97.4 F Blood Pressure: 182/78 Pulse: 70 Respirations: 18 Pulse Ox (%): 96 - Physical Exam General: In no apparent distress, Cooperative HEENT: Atraumatic, Normocephalic Respiratory: Other (BIPAP on ) Cardiovascular: Regular rate/rhythm, Normal S1 S2, Systolic murmur Gastrointestinal: Soft and benign, Non-distended Musculoskeletal: No clubbing, No swelling, No contractures, No erythema Assessment And Plan - Current Problems (Diagnosis) (1) Acute respiratory failure with hypoxia Current Visit: Yes Status: Acute (2) COPD with acute exacerbation Current Visit: Yes Status: Acute (3) Elevated troponin Current Visit: Yes Status: Acute (4) History of COVID-19 Current Visit: Yes Status: Acute (5) Multifocal pneumonia Current Visit: Yes Status: Acute (6) Thrombocytopenia Current Visit: Yes Status: Acute Physician Review Additional Text: Assessment Patient is a 76 year old male with a PMH of COPD currently admitted with multifocal PNA and COPD exacerbation. 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 Julito Vasquez at [facility] disorder. Falsely low PLT We need to do manual CBC His PLT are severely dysfunctional with the above condition Refrain from invasive procedures Transitioned HFNC with FiO2 of 80% Start alb/mucomyst for ronchorous breath sounds Continue Levaquin, meropenem, systemic steroids along with nebulizer therapy Follow sputum and blood cultures Patient was transfused for low Hb. Current Hb 8.2 SCD for DVT prophylaxis. Patient will need outpatient follow up with Cardiology for surveillance of aortic stenosis Pending possible transfer to [facility] where most of his physicians are
--- NOTE | 2021-11-12 12:22 | P.PN ---
Subjective Date of Service: 11/12/21 Chief Complaint: Multifocal pneumonia with secondary acute COPD exacerbation No change patient continues to remain agitated eating and drinking Review of Systems is unable to be obtained Physical Examination - Vital Signs Temperature: 97.4 F Blood Pressure: 182/78 Pulse: 70 Respirations: 18 Pulse Ox (%): 96 - Physical Exam General: Unresponsive Respiratory: Expiratory wheezes Cardiovascular: No edema, Regular rate/rhythm, Normal S1 S2 Assessment And Plan - Current Problems (Diagnosis) (1) Acute respiratory failure with hypoxia Current Visit: Yes Status: Acute Plan: Patient admitted with respiratory failure labs reviewed white count remains elevated hemoglobin stable blood cultures negative so far blood pressure elevated normal left ventricular function increase Lasix to 20 mg IV twice daily chest x-ray still shows significant interstitial changes DC meropenem continue with on 65% FiO2 saturations satisfactory
[2021-11-12 13:19] LABS: Absolute Lymphocytes (CBC) 2.5 K/uL (0.7-4.9); Hematocrit 28.5 % (39.6-49.0); Lymphocytes % 9.5 % (15.3-44.8); MPV 10.7 fL (7.6-11.3); RBC Red Blood Cell Count 3.55 M/uL (4.33-5.43)
[2021-11-12 13:41] LABS: Anisocytosis 1+; Blood Morphology Comment NOTED (NOT SEEN); Platelet Estimate DECR; Platelets, Giant MANY
[2021-11-12 14:14] LABS: Urine Bacteria <20 /HPF (NONE SEEN); Urine RBC LOADED /HPF (NONE SEEN)
--- NOTE | 2021-11-12 14:59 | RAD REPORT ---
EXAM DESCRIPTION: CT - Head Brain Wo Cont - 11/12/2021 2:43 pm CLINICAL HISTORY: drowsiness Headache, drowsiness COMPARISON: No comparisons TECHNIQUE: All CT scans are performed using dose optimization technique as appropriate and may inclu de automated exposure control or mA/KV adjustment according to patient size. FINDINGS: No intracranial hemorrhage, hydrocephalus or extra-axial fluid collection.Mild generalized brain atrophy is present with mild periventricular and deep white matter chronic microvascular ische karen changes.No areas of brain edema or evidence of midline shift. Mild mucoperiosteal thickening of the left maxillary antrum is seen. Mild fluid is also present in trip th mastoid cells. The calvarium is intact. IMPRESSION: No acute intracranial abnormality. Mild bilateral mastoid effusions. Mild mucosal thickening left maxillary antrum.
[2021-11-12 16:01] LABS: Arterial Blood Carboxyhemoglob 1.4 % (0-1.5); Blood Gas Oxyhemoglobin 88.8 % (94-97); Blood O2 Saturation 91.4 % (92-98.5)
--- NOTE | 2021-11-12 16:47 | RAD REPORT ---
EXAM DESCRIPTION: RAD - Chest Single View - 11/12/2021 4:38 pm CLINICAL HISTORY: shortness of breath Chest pain. COMPARISON: Chest Single View dated 11/11/2021; Chest Single View dated 11/10/2021; Chest Pa And Lat ( 2 Views) dated 11/01/2021 FINDINGS: Portable technique limits examination quality. Extensive bilateral pulmonary opacities are present, unchanged since yesterday's study. The heart is mildly enlarged. No displaced fractures. IMPRESSION: No significant change is seen extensive bilateral pulmonary opacities since yesterday's study.
[2021-11-12] MEDS ORDERED: FUROSEMIDE 20 MG/ 2ML VIAL IV SCH (17:00)
[2021-11-12] MEDS: ALBUTEROL 2.5 MG/3 ML NEB SOL NEB PRN ×2 (17:35→19:32)
[2021-11-12] MEDS: ACETYLCYST 20% 4 ML VIAL IH SCH ×2 (17:35→19:32)
[2021-11-12 17:54] LABS: Absolute Lymphocytes (CBC) 2.3 K/uL (0.7-4.9); Hematocrit 27.7 % (39.6-49.0); Lymphocytes % 9.2 % (15.3-44.8); RBC Red Blood Cell Count 3.46 M/uL (4.33-5.43)
[2021-11-12 17:55] LABS: MPV 13.2 fL (7.6-11.3)
[2021-11-12 18:56] LABS: Platelet Estimate DECR
[2021-11-12 18:57] LABS: Anisocytosis 1+; Blood Morphology Comment NOTED (NOT SEEN); Platelets, Giant FEW
[2021-11-12 18:58] LABS: Burr Cells FEW; Ovalocytes SLIGHT; Poikilocytosis SLIGHT
[2021-11-12] MEDS ORDERED: NA CHLORIDE 0.9% 100 ML ONE (21:08)
[2021-11-12 23:24] LABS: Urine Appearance TURBID (Clear); Urine Blood 3+ (Negative); Urine Color Red (Yellow); Urine Glucose NEGATIVE (Negative); Urine Protein 1+ (Negative); Urine Specific Gravity 1.015 (1.005-1.030); Urine Urobilinogen 0.2 mg/dL (0.2-1.0); Urine pH 5.5 (5.0-7.0)
[2021-11-12 23:32] LABS: Urine Bilirubin NEGATIVE (Negative)
[2021-11-12 23:49] LABS: Urine Bacteria <20 /HPF (NONE SEEN); Urine RBC >50 /HPF (NONE SEEN)
[2021-11-13] MEDS: ALBUTEROL 2.5 MG/3 ML NEB SOL NEB PRN ×2 (01:29→08:30)
[2021-11-13] MEDS: ACETYLCYST 20% 4 ML VIAL IH SCH ×2 (01:29→08:30)
[2021-11-13] MEDS ORDERED: ZIPRASIDONE MESYLA 20 MG/VIAL IM ONE (01:36)
[2021-11-13] MEDS: WATER FOR INJ,STERILE 10 ML IM PRN (01:46)
[2021-11-13 04:35] LABS: Absolute Lymphocytes (CBC) 1.7 K/uL (0.7-4.9); Hematocrit 27.1 % (39.6-49.0); Lymphocytes % 6.5 % (15.3-44.8); MPV 11.4 fL (7.6-11.3); RBC Red Blood Cell Count 3.39 M/uL (4.33-5.43)
[2021-11-13 04:53] LABS: Magnesium 2.7 mg/dL (1.8-2.4); Potassium 4.4 mmol/L (3.5-5.1)
--- NOTE | 2021-11-13 08:54 | P.PN ---
Subjective Date of Service: 11/13/21 Chief Complaint: Multifocal pneumonia with secondary acute COPD exacerbation Subjective: No new changes (Pt continues to requiring increasing amount of oxygen. FiO2 90 %. Will increase his lasix to 40 mg IV BID) Physical Examination - Vital Signs Temperature: 97.3 F Blood Pressure: 163/82 Pulse: 76 Respirations: 20 Pulse Ox (%): 95 - Physical Exam General: Mild distress, Other (mild respiratory distress) HEENT: Atraumatic, Normocephalic Respiratory: Diminished, Crackles/rales Cardiovascular: Regular rate/rhythm, Normal S1 S2 Gastrointestinal: Soft and benign, Non-distended Neurological: Normal speech, Normal affect, Other (Hard of hearing) Assessment And Plan - Current Problems (Diagnosis) (1) Acute respiratory failure with hypoxia Current Visit: Yes Status: Acute (2) COPD with acute exacerbation Current Visit: Yes Status: Acute (3) Elevated troponin Current Visit: Yes Status: Acute (4) History of COVID-19 Current Visit: Yes Status: Acute (5) Multifocal pneumonia Current Visit: Yes Status: Acute (6) Thrombocytopenia Current Visit: Yes Status: Acute Physician Review Additional Text: Assessment Patient is a 76 year old male with a PMH of COPD currently admitted with multifocal PNA and COPD exacerbation. He is requiring increasing amount of oxygen while on BIPAP/HFNC Acute hypoxemic respiratory failure Multi-focal PNA COPD exacerbation Elevated troponin Moderate to severe aortic stenosis Anemia Severe thrombocytopenia PLAN: Increase his lasix to 40 mg IV BID Monitor I/O and keep net (-) volume status. Wean down FiO2 as much as tolerated. Start Nifedipine for HTN. PRN labetalol added as well Continue Levaquin, meropenem, systemic steroids along with nebulizer therapy Follow up blood/urine cx. Blood cx negative to date SCD for DVT prophylaxis. 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 Julito Vasquez at [facility]. Hx of [place] disorder. Falsely low PLT. Manual CBC is more accurate. Severely dysfunctional PLT. Refrain from invasive procedures
[2021-11-13] MEDS ORDERED: LABETALOL 20 MG/4ML SYRINGE IV PRN (08:56)
[2021-11-13] MEDS: NIFEDIPINE XL 30 MG TABLET PO SCH ×2 (09:00→12:14)
[2021-11-13] MEDS ORDERED: FUROSEMIDE 40 MG/4 ML VIAL IV SCH (09:00)
[2021-11-13] MEDS: LORazepam 2 MG/ML VIAL IV PRN ×2 (09:10→22:05)
[2021-11-13] MEDS: ENOXAPARIN 40 MG/0.4 ML SQ SCH (09:10)
[2021-11-13] MEDS: FAMOTIDINE 20 MG/2 ML VIAL IV SCH ×2 (09:11→20:31)
[2021-11-13] MEDS: Levofloxacin 750mg IV 750 MG/150 ML BAG IV SCH (09:11)
[2021-11-13] MEDS: METHYLPREDNISOLONE 40 MG INJ IV SCH ×2 (09:11→20:33)
[2021-11-13] MEDS: FUROSEMIDE 40 MG/4 ML VIAL IV SCH ×2 (09:11→16:58)
--- NOTE | 2021-11-13 11:57 | P.PN ---
Subjective Date of Service: 11/13/21 Chief Complaint: Multifocal pneumonia with secondary acute COPD exacerbation Patient is off the BiPAP delirious agitated Review of Systems Respiratory: Cough, Shortness of Breath Physical Examination - Vital Signs Temperature: 97.3 F Blood Pressure: 179/84 Pulse: 92 Respirations: 20 Pulse Ox (%): 95 - Physical Exam General: Alert, Cooperative Respiratory: Crackles/rales (Extensive bilateral crackles), Expiratory wheezes Cardiovascular: No edema, Normal S1 S2 Assessment And Plan - Current Problems (Diagnosis) (1) Acute respiratory failure with hypoxia Current Visit: Yes Status: Acute Plan: Patient seems to be improving off BiPAP wean down the oxygen renal function improving White count still elevated blood pressure elevated patient is mildly thrombocytopenic blood cultures no growth so far DC acetylcysteine otherwise no other change in therapy
[2021-11-13] MEDS ORDERED: OLANZapine 2.5 MG TAB PO PRN (19:58)
[2021-11-14 07:12] LABS: Absolute Lymphocytes (CBC) 1.9 K/uL (0.7-4.9); Hematocrit 28.2 % (39.6-49.0); Lymphocytes % 11.5 % (15.3-44.8); MPV 12.5 fL (7.6-11.3); RBC Red Blood Cell Count 3.54 M/uL (4.33-5.43)
[2021-11-14 07:51] LABS: Platelet Estimate DECR
[2021-11-14 07:52] LABS: Anisocytosis 1+; Blood Morphology Comment NOTED (NOT SEEN); Platelets, Giant PRESENT
--- NOTE | 2021-11-14 08:06 | RAD REPORT ---
EXAM DESCRIPTION: Juanjose Single View11/14/2021 5:45 am CLINICAL HISTORY: Shortness of breath COMPARISON: November 12, 2021 FINDINGS: No change in extensive bilateral pulmonary opacities. Heart appears borderline enlarged IMPRESSION: No change in extensive bilateral pulmonary opacities which could represent pneumonia or pulmonary edema
[2021-11-14] MEDS: Levofloxacin 750mg IV 750 MG/150 ML BAG IV SCH (08:08)
[2021-11-14] MEDS: ENOXAPARIN 40 MG/0.4 ML SQ SCH (08:09)
[2021-11-14] MEDS: FUROSEMIDE 40 MG/4 ML VIAL IV SCH (08:09)
[2021-11-14] MEDS: FAMOTIDINE 20 MG/2 ML VIAL IV SCH ×2 (08:09→20:04)
[2021-11-14] MEDS: METHYLPREDNISOLONE 40 MG INJ IV SCH ×2 (08:09→20:05)
[2021-11-14] MEDS: NIFEDIPINE XL 30 MG TABLET PO SCH (08:10)
--- NOTE | 2021-11-14 08:23 | P.PN ---
Subjective Date of Service: 11/14/21 Chief Complaint: Multifocal pneumonia with secondary acute COPD exacerbation Subjective: Improving (Doing better. Less oxygen requirement. A little sedated this morning after receiving zyprexa overnight for agitation) Physical Examination - Vital Signs Temperature: 98 F Blood Pressure: 155/63 Pulse: 68 Respirations: 23 Pulse Ox (%): 97 - Physical Exam General: Other (sedated) HEENT: Atraumatic, Normocephalic Respiratory: Diminished Cardiovascular: No edema, Regular rate/rhythm, Normal S1 S2 Gastrointestinal: Soft and benign, Non-distended Musculoskeletal: No clubbing, No swelling, No contractures Assessment And Plan - Current Problems (Diagnosis) (1) Acute respiratory failure with hypoxia Current Visit: Yes Status: Acute (2) COPD with acute exacerbation Current Visit: Yes Status: Acute (3) Elevated troponin Current Visit: Yes Status: Acute (4) History of COVID-19 Current Visit: Yes Status: Acute (5) Multifocal pneumonia Current Visit: Yes Status: Acute (6) Thrombocytopenia Current Visit: Yes Status: Acute Physician Review Additional Text: Assessment Patient is a 76 year old male with a PMH of COPD currently admitted with multifocal PNA and COPD exacerbation. He is currently in the ICU as he requires high non-invasive respiratory support. Acute hypoxemic respiratory failure Multi-focal PNA COPD exacerbation Elevated troponin Moderate to severe aortic stenosis Anemia Severe thrombocytopenia PLAN: Doing better after increasing IV lasix FiO2 of 85% on Airvo. Continue alternating BIPAP/HFNC Keep net (-) Increase nifedipine to 60 mg daily Sedation vacation due to increase drowsiness this morning Continue Levaquin, solumedrol Follow up blood/urine cx. Blood cx negative to date SCD for DVT prophylaxis. Patient will need outpatient follow up with Cardiology for surveillance of aortic stenosis Pending possible transfer to [facility] where most of his physicians are Note: Discussed with patient's first helper Dr. Juliot Vasquez at [facility]. Hx of [place] Souill[place] disorder. Falsely low PLT. Manual CBC is more accurate. Severely dysfunctional PLT. Refrain from invasive procedures
[2021-11-14] MEDS: NIFEDIPINE XL 60 MG TABLET PO SCH (09:50)
[2021-11-14] MEDS: OLANZapine 2.5 MG TAB PO PRN (11:12)
--- NOTE | 2021-11-14 13:00 | P.PN ---
Subjective Date of Service: 11/14/21 Chief Complaint: Multifocal pneumonia with secondary acute COPD exacerbation Patient continues to remain agitated although oxygen requirements are declining eating and drinking Review of Systems is unable to be obtained Physical Examination - Vital Signs Temperature: 98 F Blood Pressure: 101/47 Pulse: 85 Respirations: 22 Pulse Ox (%): 90 - Physical Exam General: Unresponsive Respiratory: Crackles/rales (Extensive bilateral crackles) Cardiovascular: No edema, Regular rate/rhythm Assessment And Plan - Current Problems (Diagnosis) (1) Acute respiratory failure with hypoxia Current Visit: Yes Status: Acute Plan: Continue with present treatment white count is declining oxygen requirements are also improving labs medication list reviewed patient has diffuse interstitial disease prognosis poor patient is not stable for a bronchoscopy blood cultures no growth r will repeat Covid test
[2021-11-15] MEDS: OLANZapine 2.5 MG TAB PO PRN ×2 (01:40→21:31)
[2021-11-15 05:15] LABS: Potassium 4.8 mmol/L (3.5-5.1)
[2021-11-15 06:21] LABS: Hematocrit 30.8 % (39.6-49.0); Lymphocytes % 12.5 % (15.3-44.8); RBC Red Blood Cell Count 3.88 M/uL (4.33-5.43)
[2021-11-15] MEDS: levoFLOXacin 750 MG TAB PO SCH (08:51)
[2021-11-15] MEDS: FAMOTIDINE 20 MG/2 ML VIAL IV SCH (08:51)
[2021-11-15] MEDS: NIFEDIPINE XL 60 MG TABLET PO SCH (08:51)
[2021-11-15] MEDS: ENOXAPARIN 40 MG/0.4 ML SQ SCH (08:52)
[2021-11-15] MEDS: FUROSEMIDE 40 MG/4 ML VIAL IV SCH (08:52)
[2021-11-15] MEDS: METHYLPREDNISOLONE 40 MG INJ IV SCH (08:52)
--- NOTE | 2021-11-15 09:43 | P.PN ---
Subjective Date of Service: 11/15/21 Chief Complaint: Multifocal pneumonia with secondary acute COPD exacerbation Subjective: Improving (Requiring less and less FiO2) Physical Examination - Vital Signs Temperature: 97.9 F Blood Pressure: 141/54 Pulse: 65 Respirations: 20 Pulse Ox (%): 91 - Physical Exam General: In no apparent distress, Cooperative HEENT: Atraumatic, Normocephalic Respiratory: Diminished, Other (HFNC in place) Cardiovascular: No edema, Regular rate/rhythm, Normal S1 S2 Musculoskeletal: No clubbing, No swelling, No contractures, No erythema Assessment And Plan - Current Problems (Diagnosis) (1) Acute respiratory failure with hypoxia Current Visit: Yes Status: Acute (2) COPD with acute exacerbation Current Visit: Yes Status: Acute (3) Elevated troponin Current Visit: Yes Status: Acute (4) History of COVID-19 Current Visit: Yes Status: Acute (5) Multifocal pneumonia Current Visit: Yes Status: Acute (6) Thrombocytopenia Current Visit: Yes Status: Acute Physician Review Additional Text: Assessment Patient is a 76 year old male with a PMH of COPD currently admitted with multifocal PNA and COPD exacerbation. He is currently in the ICU as he requires high non-invasive respiratory support. Acute hypoxemic respiratory failure Multi-focal PNA COPD exacerbation Elevated troponin Moderate to severe aortic stenosis Anemia Severe thrombocytopenia PLAN: FiO2 of 60% on Airvo. Patient continues to do better Continue IV lasix 40 mg IV BID and maintain net (-) volume status Continue nifedipine at current dose PRN zyprexa for agitation Follow up EKG Continue Levaquin, solumedrol Cx negative to date SCD for DVT prophylaxis. Patient will need outpatient follow up with Cardiology for surveillance of aortic stenosis Note: Discussed with patient's booking officer Dr. Julito Vasquez at [facility]. Hx of [place] disorder. Falsely low PLT. Manual CBC is more accurate. Severely dysfunctional PLT. Refrain from invasive procedures
[2021-11-15 09:45] LABS: Anisocytosis 1+; Blood Morphology Comment NOTED (NOT SEEN); Hypochromasia 2+; Platelet Estimate DECR; Platelets, Giant PRESENT; Poikilocytosis 2+
[2021-11-15 09:46] LABS: Basophilic Stippling 1+
--- NOTE | 2021-11-15 11:14 | P.PN ---
Subjective Date of Service: 11/15/21 Chief Complaint: Multifocal pneumonia with secondary acute COPD exacerbation Patient apparently is improving oxygen requirements declining more alert responsive cooperative Review of Systems General: Weakness Respiratory: Shortness of Breath Physical Examination - Vital Signs Temperature: 97.9 F Blood Pressure: 141/54 Pulse: 65 Respirations: 20 Pulse Ox (%): 91 - Physical Exam General: Alert, Mild distress Respiratory: Crackles/rales Cardiovascular: No edema, Normal S1 S2 Assessment And Plan - Current Problems (Diagnosis) (1) Acute respiratory failure with hypoxia Current Visit: Yes Status: Acute Plan: Patient is clinically improving White count is elevated repeat chest x-ray tomorrow not stable for bronchoscopy yet improving cultures negative continue with present therapy
[2021-11-15] MEDS: FAMOTIDINE 20 MG TAB PO SCH (20:29)
[2021-11-15] MEDS: predniSONE 20 MG TAB PO SCH (20:29)
[2021-11-16 05:48] LABS: Absolute Lymphocytes (CBC) 3.2 K/uL (0.7-4.9); RBC Red Blood Cell Count 4.14 M/uL (4.33-5.43)
[2021-11-16 05:58] LABS: BUN Blood Urea Nitrogen 39 mg/dL (7-18); Bicarbonate 36 mmol/L (21-32); Glucose Level 134 mg/dL (74-106); Potassium 4.6 mmol/L (3.5-5.1); Sodium Level 138 mmol/L (136-145)
[2021-11-16 06:53] LABS: MPV 12.8 fL (7.6-11.3); White Blood Cell Scan OK (OK)
[2021-11-16 06:54] LABS: Anisocytosis 2+; Blood Morphology Comment NOTED (NOT SEEN); Hypochromasia 1+; Ovalocytes 1+; Platelet Estimate DECR; Polychromasia SLIGHT; Target Cells 2+
[2021-11-16 06:55] LABS: Platelets, Giant FEW
--- NOTE | 2021-11-16 08:17 | P.PN ---
Subjective Date of Service: 11/16/21 Chief Complaint: Multifocal pneumonia with secondary acute COPD exacerbation Subjective: Improving (No acute events overnight. Mental status is back to baseline.) Physical Examination - Vital Signs Temperature: 97.1 F Blood Pressure: 126/57 Pulse: 63 Respirations: 20 Pulse Ox (%): 95 - Physical Exam General: Alert, In no apparent distress, Cooperative HEENT: Atraumatic, Normocephalic Respiratory: Other (Breathing unlaboured) Musculoskeletal: No clubbing, No swelling, No contractures Neurological: Normal speech, Normal affect - Studies Microbiology Data (last 24 hrs): 11/10/21 16:50 Blood - Blood Aerobic Blood Culture - Final No growth in 5 days. 11/10/21 16:50 Blood - Blood Anaerobic Blood Culture - Final No growth in 5 days. 11/10/21 16:30 Blood - Blood Aerobic Blood Culture - Final No growth in 5 days. 11/10/21 16:30 Blood - Blood Anaerobic Blood Culture - Final No growth in 5 days. Assessment And Plan - Current Problems (Diagnosis) (1) Acute respiratory failure with hypoxia Current Visit: Yes Status: Acute (2) COPD with acute exacerbation Current Visit: Yes Status: Acute (3) Elevated troponin Current Visit: Yes Status: Acute (4) History of COVID-19 Current Visit: Yes Status: Acute (5) Multifocal pneumonia Current Visit: Yes Status: Acute (6) Thrombocytopenia Current Visit: Yes Status: Acute Physician Review Additional Text: Assessment Patient is a 76 year old male with a PMH of COPD currently admitted with multifocal PNA and COPD exacerbation. He is currently in the ICU as he requires high non-invasive respiratory support. Acute hypoxemic respiratory failure Multi-focal PNA COPD exacerbation Elevated troponin Moderate to severe aortic stenosis Anemia Severe thrombocytopenia PLAN: Patient continues to do well Mental status is back to baseline Respiratory continues to improve as well. FiO2 of 60% on Airvo. Stable Continue IV lasix 40 mg IV BID and maintain net (-) volume status Continue nifedipine at current dose PRN zyprexa for agitation Continue Levaquin, solumedrol SCD for DVT prophylaxis, Famotidine for GI ppx. 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 Julito Vasquez at [facility]. Hx of Peewee Souillier disorder. Falsely low PLT. Manual CBC is more accurate. Severely dysfunctional PLT. Refrain from invasive procedures 11/16/21 08:16
[2021-11-16] MEDS: FUROSEMIDE 40 MG/4 ML VIAL IV SCH (08:29)
[2021-11-16] MEDS: NIFEDIPINE XL 60 MG TABLET PO SCH (08:29)
[2021-11-16] MEDS: levoFLOXacin 750 MG TAB PO SCH (08:29)
[2021-11-16] MEDS: FAMOTIDINE 20 MG TAB PO SCH ×2 (08:29→21:10)
[2021-11-16] MEDS: ENOXAPARIN 40 MG/0.4 ML SQ SCH (08:29)
[2021-11-16] MEDS: predniSONE 20 MG TAB PO SCH ×2 (08:30→21:10)
--- NOTE | 2021-11-16 08:47 | RAD REPORT ---
EXAM DESCRIPTION: [facility] Single View11/16/2021 6:44 am CLINICAL HISTORY: Respiratory failure COMPARISON: November 14, 2021 FINDINGS: Mild to moderate improvement in the diffuse bilateral pulmonary opacities. The heart mikala ins enlarged IMPRESSION: Mild to moderate improvement in the diffuse bilateral pulmonary opacities
[2021-11-17 05:36] LABS: Absolute Lymphocytes (CBC) 3.1 K/uL (0.7-4.9); Hematocrit 33.9 % (39.6-49.0); Lymphocytes % 13.9 % (15.3-44.8); MPV 12.6 fL (7.6-11.3)
[2021-11-17 05:40] LABS: Potassium 4.5 mmol/L (3.5-5.1)
[2021-11-17 06:13] VITALS: BMI 23.5
--- NOTE | 2021-11-17 08:44 | P.PN ---
Subjective Date of Service: 11/17/21 Chief Complaint: Multifocal pneumonia with secondary acute COPD exacerbation Subjective: Improving (Continues to require less and less FiO2) Physical Examination - Vital Signs Temperature: 96.9 F Blood Pressure: 106/56 Pulse: 70 Respirations: 20 Pulse Ox (%): 94 - Physical Exam General: In no apparent distress, Cooperative HEENT: Atraumatic, Normocephalic Respiratory: Diminished Cardiovascular: Regular rate/rhythm, Normal S1 S2 Gastrointestinal: Soft and benign, Non-distended Neurological: Normal speech, Normal affect Assessment And Plan - Current Problems (Diagnosis) (1) Acute respiratory failure with hypoxia Current Visit: Yes Status: Acute (2) COPD with acute exacerbation Current Visit: Yes Status: Acute (3) Elevated troponin Current Visit: Yes Status: Acute (4) History of COVID-19 Current Visit: Yes Status: Acute (5) Multifocal pneumonia Current Visit: Yes Status: Acute (6) Thrombocytopenia Current Visit: Yes Status: Acute Physician Review Additional Text: Assessment Patient is a 76 year old male with a PMH of COPD currently admitted with multifocal PNA and COPD exacerbation. He is currently in the ICU as he required significant non-invasive respiratory support. He did well with additional of IV Lasix 40 mg BID and has been requiring less and less FiO2, currently at 50%. Acute hypoxemic respiratory failure Multi-focal PNA COPD exacerbation Elevated troponin Moderate to severe aortic stenosis Anemia Severe thrombocytopenia Aortic stenosis PLAN: Continue current treatment He continues to improve Will transfer to floor when FiO2 < 40% Will most likely require Home O2 upon discharge Mental status is back to baseline Continue IV lasix 40 mg IV BID and maintain net (-) volume status Continue nifedipine at current dose PRN zyprexa for agitation Continue Levaquin, solumedrol SCD for DVT prophylaxis, Famotidine for GI ppx. 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 Julito Vasquez at [facility]. Hx of Peewee Souillier disorder. Falsely low PLT. Manual CBC is more accurate. Severely dysfunctional PLT. Refrain from invasive procedures
[2021-11-17] MEDS: predniSONE 20 MG TAB PO SCH ×2 (09:29→20:49)
[2021-11-17] MEDS: FUROSEMIDE 40 MG/4 ML VIAL IV SCH (09:29)
[2021-11-17] MEDS: ENOXAPARIN 40 MG/0.4 ML SQ SCH (09:30)
[2021-11-17] MEDS: levoFLOXacin 750 MG TAB PO SCH (09:30)
[2021-11-17] MEDS: NIFEDIPINE XL 60 MG TABLET PO SCH (09:30)
[2021-11-17] MEDS: FAMOTIDINE 20 MG TAB PO SCH ×2 (09:30→20:50)
[2021-11-17 10:38] LABS: Anisocytosis 1+; Blood Morphology Comment NOTED (NOT SEEN); Platelet Estimate ADEQ; Platelets, Giant MANY
[2021-11-17 10:39] LABS: Elliptocytes 1+; Poikilocytosis 1+; Target Cells FEW
[2021-11-18] MEDS: NIFEDIPINE XL 60 MG TABLET PO SCH (08:54)
[2021-11-18] MEDS: predniSONE 20 MG TAB PO SCH ×2 (08:54→20:03)
[2021-11-18] MEDS: FAMOTIDINE 20 MG TAB PO SCH ×2 (08:54→20:02)
[2021-11-18] MEDS: levoFLOXacin 750 MG TAB PO SCH (08:54)
[2021-11-18] MEDS: FUROSEMIDE 40 MG/4 ML VIAL IV SCH (08:54)
[2021-11-18] MEDS: ENOXAPARIN 40 MG/0.4 ML SQ SCH (08:55)
--- NOTE | 2021-11-18 12:45 | P.PN ---
Subjective Date of Service: 11/18/21 Chief Complaint: Multifocal pneumonia with secondary acute COPD exacerbation Patient is doing much better is gradually improving Review of Systems General: Weakness Respiratory: Shortness of Breath Physical Examination - Vital Signs Temperature: 96.5 F Blood Pressure: 114/55 Pulse: 75 Respirations: 22 Pulse Ox (%): 92 - Physical Exam General: Alert, Oriented x3 Respiratory: Crackles/rales Cardiovascular: No edema, Regular rate/rhythm Assessment And Plan - Current Problems (Diagnosis) (1) Acute respiratory failure with hypoxia Current Visit: Yes Status: Acute Plan: Patient has improved significantly very alert oriented responsive eating speech therapist at the bedside white count is beginning to decrease DC Lasix patient is on high flow doing much better
[2021-11-18] MEDS: OLANZapine 2.5 MG TAB PO PRN (20:11)
[2021-11-19] MEDS: LORazepam 2 MG/ML VIAL IV PRN ×2 (01:57→10:06)
[2021-11-19] MEDS ORDERED: WATER FOR INJ,STERILE 10 ML IM PRN (02:55)
[2021-11-19] MEDS ORDERED: ZIPRASIDONE MESYLA 20 MG/VIAL IM PRN ×2 (02:55→05:42)
[2021-11-19 06:52] LABS: Absolute Lymphocytes (CBC) 2.9 K/uL (0.7-4.9); Hematocrit 37.7 % (39.6-49.0); Lymphocytes % 12.6 % (15.3-44.8); MPV 8.7 fL (7.6-11.3); RBC Red Blood Cell Count 4.74 M/uL (4.33-5.43)
--- NOTE | 2021-11-19 07:13 | RAD REPORT ---
EXAM DESCRIPTION: RAD - Chest Single View - 11/19/2021 5:40 am CLINICAL HISTORY: Respiratory failure COMPARISON: Portable November 16, portable November 14 TECHNIQUE: AP portable chest image was obtained 11/19/2021 5:40 am . FINDINGS: Lung volumes are low. Interstitial and alveolar opacities in both lung grace have shown n o further improvement since November 16. No progressive lung parenchymal process seen. Heart and vasculature are normal. No pneumothorax or enlarging pleural effusion. No acute bony abnor mality seen. No acute aortic findings suspected. IMPRESSION: Bilateral interstitial and alveolar opacification not substantially different from ricardo rison. No progressive process seen.
--- NOTE | 2021-11-19 07:18 | P.PN ---
Date of Service: 11/18/21 Subjective Please doing better. Respiratory status is improved. Pulmonary is agreeable to transfer to general medical floor. Physical Examination - Vital Signs Reviewed - Physical Exam General: In no apparent distress, Cooperative HEENT: Atraumatic, Normocephalic Respiratory: Diminished Cardiovascular: Regular rate/rhythm, Normal S1 S2 Gastrointestinal: Soft and benign, Non-distended Neurological: Normal speech, Normal affect Assessment And Plan - Current Problems (Diagnosis) (1) Acute respiratory failure with hypoxia Current Visit: Yes Status: Acute (2) COPD with acute exacerbation Current Visit: Yes Status: Acute (3) Elevated troponin Current Visit: Yes Status: Acute (4) History of COVID-19 Current Visit: Yes Status: Acute (5) Multifocal pneumonia Current Visit: Yes Status: Acute (6) Thrombocytopenia Current Visit: Yes Status: Acute Physician Review Additional Text: Assessment: 1. Acute hypoxemic respiratory failure 2. Multi-focal PNA 3. COPD exacerbation 4. Elevated troponin 5. Moderate to severe aortic stenosis 6. Anemia 7. Severe thrombocytopenia PLAN: -Continue current treatment -He continues to improve -Will transfer to floor when FiO2 < 40% -Will most likely require Home O2 upon discharge -Mental status is back to baseline -Continue IV lasix 40 mg IV BID and maintain net (-) volume status -Continue nifedipine at current dose -PRN zyprexa for agitation -Continue Levaquin, solumedrol -SCD for DVT prophylaxis, Famotidine for GI ppx. -Patient will need outpatient follow up with Cardiology for surveillance of aortic stenosis Note: Discussed with patient's skull splitter Dr. Julito Vasquez at [facility]. Hx of Peewee Souillier disorder. Falsely low PLT. Manual CBC is more accurate. Severely dysfunctional PLT. Refrain from invasive procedures
--- NOTE | 2021-11-19 07:26 | P.PN ---
Date of Service: 11/19/21 Subjective Patient clinical status improved. Plan to start on physical therapy. Actively get patient out of bed and ambulate. If he does well DC Hubbard catheter. Physical Examination - Vital Signs Reviewed - Physical Exam General: In no apparent distress, Cooperative HEENT: Atraumatic, Normocephalic Respiratory: Diminished Cardiovascular: Regular rate/rhythm, Normal S1 S2 Gastrointestinal: Soft and benign, Non-distended Neurological: Normal speech, Normal affect Assessment And Plan - Current Problems (Diagnosis) (1) Acute respiratory failure with hypoxia Current Visit: Yes Status: Acute (2) COPD with acute exacerbation Current Visit: Yes Status: Acute (3) Elevated troponin Current Visit: Yes Status: Acute (4) History of COVID-19 Current Visit: Yes Status: Acute (5) Multifocal pneumonia Current Visit: Yes Status: Acute (6) Thrombocytopenia Current Visit: Yes Status: Acute Physician Review Additional Text: Assessment: 1. Acute hypoxemic respiratory failure 2. Multi-focal PNA 3. COPD exacerbation 4. Elevated troponin 5. Moderate to severe aortic stenosis 6. Anemia 7. Severe thrombocytopenia PLAN: -Continue current treatment -He continues to improve -Will transfer to floor when FiO2 < 40% -Will most likely require Home O2 upon discharge -Mental status is back to baseline -Continue IV lasix 40 mg IV BID and maintain net (-) volume status -Continue nifedipine at current dose -PRN zyprexa for agitation -Continue Levaquin, solumedrol -SCD for DVT prophylaxis, Famotidine for GI ppx. 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 Julito Vasquez at [facility]. Hx of Peewee Souillier disorder. Falsely low PLT. Manual CBC is more accurate. Severely dysfunctional PLT. Refrain from invasive procedures
[2021-11-19 08:19] LABS: White Blood Cell Scan OK (OK)
[2021-11-19 08:20] LABS: Anisocytosis 1+; Blood Morphology Comment NOTED (NOT SEEN); Platelet Estimate DECR
[2021-11-19 08:21] LABS: Platelets, Giant MANY
[2021-11-19] MEDS: predniSONE 20 MG TAB PO SCH ×2 (10:02→21:43)
[2021-11-19] MEDS: FAMOTIDINE 20 MG TAB PO SCH ×2 (10:02→21:42)
[2021-11-19] MEDS: FUROSEMIDE 40 MG/4 ML VIAL IV SCH (10:02)
[2021-11-19] MEDS: levoFLOXacin 750 MG TAB PO SCH (10:02)
[2021-11-19] MEDS: NIFEDIPINE XL 60 MG TABLET PO SCH (10:02)
[2021-11-19] MEDS: ENOXAPARIN 40 MG/0.4 ML SQ SCH (10:03)
--- NOTE | 2021-11-19 13:53 | RAD REPORT ---
EXAM DESCRIPTION: CT - Thorax Wo Con - 11/19/2021 1:31 pm CLINICAL HISTORY: Bilateral pneumonia COMPARISON: Chest Single View dated 11/19/2021 TECHNIQUE: Axial 5 mm thick images of the chest were obtained without IV contrast. All CT scans are performed using dose optimization technique as appropriate and may include automated exposure control or mA/KV adjustment according to patient size. FINDINGS: Motion degradation is present somewhat limiting detail but not altering the overall impres mario of the study. Consolidated lung parenchyma is present in the right middle lobe. Air bronchogram formation is seen. The involve lung parenchyma abuts the elevated right hemidiaphragm. Additional airspace opacities and ground-glass opacities are seen scattered in both lung grace with increased interstitial thickening throughout all lung grace. No cavitation or mass lesion identified. No pleural effusions are present. There is no pleural thickening or pleural based mass identified. No endobronchial lesions identifiable. No pneumothorax. No abnormal mediastinal or hilar masses or lymphadenopathy seen. No gross aortic or pulmonary artery finding suspected. Assessment is limited in the absence of IV contrast. No chest wall mass or abnormal axillary lymphadenopathy. Limited upper abdomen imaging shows numerous homogeneous cystic masses scattered in liver parenchyma largest at 9.4 cm. Full assessment is limited in the absence of contrast; however, incidental hepatic cysts would be the most likely etiology. 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 Clips are seen in the posterior left upper quadrant. No gallbladder or biliary tree abnormality suspected. IMPRESSION: Right middle lobe consolidated pneumonia. Interstitial and alveolar opacities scattered throughout both lung grace would indicate presence of bilateral pneumonia. No pleural effusions.
[2021-11-20 05:24] LABS: Absolute Lymphocytes (CBC) 2.8 K/uL (0.7-4.9); Hematocrit 36.7 % (39.6-49.0); Lymphocytes % 13.6 % (15.3-44.8); MPV 8.7 fL (7.6-11.3); RBC Red Blood Cell Count 4.62 M/uL (4.33-5.43)
[2021-11-20 05:45] LABS: Albumin 2.6 g/dL (3.4-5.0); Bilirubin Total 0.3 mg/dL (0.2-1.0); Magnesium 2.4 mg/dL (1.8-2.4); Phosphorus 3.7 mg/dL (2.5-4.9); Potassium 4.9 mmol/L (3.5-5.1); Protein, Total 6.3 g/dL (6.4-8.2)
--- NOTE | 2021-11-20 08:20 | RAD REPORT ---
EXAM DESCRIPTION: RAD - Chest Single View - 11/20/2021 5:55 am CLINICAL HISTORY: pneumonia Chest pain. COMPARISON: Chest Single View dated 11/19/2021; Chest Single View dated 11/16/2021; Chest Single View dated 11/14/2021; Chest Single View dated 11/12/2021 FINDINGS: Portable technique limits examination quality. Since 11/19/2021, mild improvement is seen in bilateral pulmonary opacities. The heart is mildly enla rged in size. No displaced fractures. IMPRESSION: Mild improvement in lung aeration since yesterday's study.
[2021-11-20] MEDS: NIFEDIPINE XL 60 MG TABLET PO SCH (09:51)
[2021-11-20] MEDS: FAMOTIDINE 20 MG TAB PO SCH (09:52)
[2021-11-20] MEDS: ENOXAPARIN 40 MG/0.4 ML SQ SCH (09:52)
[2021-11-20] MEDS: predniSONE 20 MG TAB PO SCH (09:52)
[2021-11-20] MEDS: FUROSEMIDE 40 MG/4 ML VIAL IV SCH (09:52)
[2021-11-20] MEDS: levoFLOXacin 750 MG TAB PO SCH (09:52)
--- NOTE | 2021-11-20 12:27 | P.PN ---
Subjective Date of Service: 11/20/21 Chief Complaint: Multifocal pneumonia with secondary acute COPD exacerbation Patient is doing much better no new complaints x-ray has also improved Review of Systems General: Weakness Respiratory: Shortness of Breath Physical Examination - Vital Signs Temperature: 97.0 F Blood Pressure: 90/50 Pulse: 88 Respirations: 18 Pulse Ox (%): 98 - Physical Exam General: Alert, Oriented x3 Respiratory: Clear to auscultation bilaterally Cardiovascular: No edema, Regular rate/rhythm Assessment And Plan - Current Problems (Diagnosis) (1) Acute respiratory failure with hypoxia Current Visit: Yes Status: Acute Plan: Patient has improved significantly DC antibiotics reduce dose of prednisone plan for discharge home diagnosis pulmonary fibrosis see Hubbard catheter physical therapy DC Lasix antipsychotics plan for discharge physical therapy
[2021-11-20] MEDS: predniSONE 10 MG TAB PO SCH (20:41)
[2021-11-20] MEDS: NYSTATIN 500,000 UNIT/5 ML UDC PO SCH (20:41)
[2021-11-20] MEDS: NYSTATIN PWDR 100000 UNIT/GM TOP SCH (20:42)
[2021-11-20] MEDS ORDERED: FLUCONAZOLE 100 MG TAB PO ONE (21:00)
[2021-11-20] MEDS ORDERED: MELATONIN 5 MG TABLET PO PRN (22:15)
[2021-11-21 04:47] LABS: Absolute Lymphocytes (CBC) 3.1 K/uL (0.7-4.9); Hematocrit 32.2 % (39.6-49.0); Lymphocytes % 14.8 % (15.3-44.8); MPV 8.7 fL (7.6-11.3)
[2021-11-21 04:55] LABS: Potassium 4.4 mmol/L (3.5-5.1)
[2021-11-21 06:07] LABS: Platelet Estimate DECR
[2021-11-21 06:08] LABS: Anisocytosis 1+; Blood Morphology Comment NOTED (NOT SEEN)
[2021-11-21 06:10] LABS: Platelets, Giant MANY
[2021-11-21] MEDS: NYSTATIN 500,000 UNIT/5 ML UDC PO SCH ×3 (08:22→16:35)
[2021-11-21] MEDS: NIFEDIPINE XL 60 MG TABLET PO SCH (08:22)
[2021-11-21] MEDS: NYSTATIN PWDR 100000 UNIT/GM TOP SCH (08:23)
[2021-11-21] MEDS: predniSONE 10 MG TAB PO SCH (08:23)
[2021-11-21] MEDS ORDERED: FLUCONAZOLE 100 MG TAB PO SCH (09:00)
[2021-11-21 13:25] VITALS: O2SAT 98
[2021-11-21 16:24] VITALS: BP 132/76; TEMP 96.9
== END 2021-11-21 18:03 | disposition home health service (06) | DRG 190 ==
LOC: ER 15:57 → 3RD-ICU 22:19 → 4TH 11-18 16:40
PROVIDERS: ADMIT Hospitalist; ATTEND Hospitalist
PROC: 5A09457 Assistance with Respiratory Ventilation, 24-96 Consecutive Hours, Continuous Positive Airway Pressure (ICD-10-PCS; 2021-11-10)
PROC: 5A0945A Assistance with Respiratory Ventilation, 24-96 Consecutive Hours, High Flow/Velocity Cannula (ICD-10-PCS; principal; 2021-11-13)
DX: J44.0 Chronic obstructive pulmonary disease with (acute) lower respiratory infection (principal); J18.9 Pneumonia, unspecified organism; J96.01 Acute respiratory failure with hypoxia; I50.33 Acute on chronic diastolic (congestive) heart failure; J44.1 Chronic obstructive pulmonary disease with (acute) exacerbation; G30.9 Alzheimer's disease, unspecified; F02.80 Dementia in other diseases classified elsewhere, unspecified severity, without behavioral disturbance, psychotic disturbance, mood disturbance, and anxiety; D69.6 Thrombocytopenia, unspecified; I35.0 Nonrheumatic aortic (valve) stenosis; R77.8 Other specified abnormalities of plasma proteins; R01.1 Cardiac murmur, unspecified; D64.9 Anemia, unspecified; R45.1 Restlessness and agitation; J84.10 Pulmonary fibrosis, unspecified; I11.0 Hypertensive heart disease with heart failure; Z86.16 Personal history of COVID-19; Z20.822 Contact with and (suspected) exposure to COVID-19; Z66 Do not resuscitate
CPT/HCPCS: 0241U; 36415; 36430; 51702; 70450; 71045; 71250; 80048; 80053; 80076; 81001; 81015; 82805; 82947; 83605; 83690; 83735; 83880; 84100; 84145; 84484; 85025; 85610; 86850; 86900; 86901; 87040; 87086; 87088; 92526; 92610; 93005; 93306; 94003; 94640; 94660; 94760; 97116; 97161; 97530; 99285; C9113; J1650; J1940; J2185; J2405; J2920; J2930; J3370; J3486; J7030; J7040; J7050; J7512; P9016; P9073; U0003

== ENCOUNTER 2022-01-11 14:11 | Emergency (ER) | payer OTHER ==
--- OUTSIDE RECORDS SUMMARY | 2022-01-11 14:17 | XMS REPORT | Continuity of Care Document ---
:1945 Author Organization Formerly [facility] t Address [address] [place] [address] Care Team Providers Name Role Phone Floridalma BOCANEGRA Primary Care Physician MARITO Attending Clinician Unavailable TAMMY Attending Clinician Unavailable Lapin_S Attending Clinician Unavailable FLORIDALMA Attending Clinician Unavailable Kody Cifuentes Attending Clinician [phone] ESTRADA Attending Clinician Unavailable Shaq KAY Attending Clinician Unavailable Heather Cespedes MD Attending Clinician Cirilo RN Attending Clinician Unavailable Charlene Ayala MD Attending Clinician Kevin Owens DO Attending Clinician Robin BOCANEGRA Attending Clinician Emmanuelle BOCANEGRA TCecilia Attending Clinician Maria Elena MUNGUIA Attending Clinician Unavailable Fahad King MD Attending Clinician Renetta Hancock MD Attending Clinician Juanita BOCANEGRA Attending Clinician Sherita Reddy MD Attending Clinician Shani BOCANEGRA Attending Clinician Raju_P Attending Clinician Unavailable Lapin_S Admitting Clinician Unavailable ROBIN Admitting Clinician Unavailable JUANITA Admitting Clinician Unavailable Raju_P Admitting Clinician Unavailable Payers Payer Name Policy Type Policy Number Effective Date Expiration Date Leslie teixeira MEDICARE B-[place]: [id number] 1995 [employer]OV[employer]hale [employer] 00:00:00 AETNA (INDEMNITY) [id number] 2000 00:00:00 AETNA [id number] 2000 00:00:00 Problems Condition Condition Condition Status Onset Resolution Last Treating Co mments Source Name Details Category Date Date Treatment Clinician Date COVID COVID-19 Disease Active Metho di 9-03 st [...] Stop Date Source Natural brother Lung cancer [facility] Natural brother Alcohol abuse [facility] Natural brother Parkinsonism [facility] Natural father Other [facility] mother Diabetes [facility] mother Heart [facility] sister Diabetes [facility] Natural sister Hypertension [facility] Natural sister Lung cancer [facility] Natural sister Stomach cancer [facility] Natural sister Breast cancer [facility] Social History Social Habit Start Date Stop Date Quantity Comments Source History of tobacco Cigarette Smoker [facility] use Hospital History SDOH [facility] Alcohol Frequency Hospita l History SDOH [facility] Alcohol Std Drinks Hospit al History SDOH [facility] Alcohol Binge Hospital Alcohol intake 2021-08-12 2021-08-12 [...] Hospital 50 Sex Assigned At [birth year] [facility] 00:00:00 00:00:00 Hospital Smoking Status Start Date Stop Date Source Ex-smoker 2018-04-19 00:00:00 2018-04-19 00:00:00 Method t [facility] Medications Ordered Filled Start Stop Current Ordering Indication Dosage Frequency Signature Comments Components Source Medication Medication Date Date Medication? Clinician (SIG) Name Name benzonatate No 100mg Q.5D Take 100 [facility] (TESSALON) [...] a day as needed for cough. bromphenira No 5mL Q.25D Take 5 mL [facility] mine-pseudo 09-30 by mouth 4 s t eph-DM 00:00: 05:59 (four) Hospita 2-30-10 00 :00 times a l mg/5 mL day as syrup needed for congestion , cough or allergies for up to 10 days. doxycycline 2021- No 100mg Q.5D Take 1 Me thodi (VIBRA-TABS [...] Hospita tablet 41 l albuterol 2020-08 Yes [id number] 2.5mg Q6H Take 3 mL [facility] (ACCUNEB) [...] shortness of breath. benzonatate 2020- No 100mg Q.[id number] Take 100 [facility] (TESSALON) 05-21 [id number] mg by s t 100 MG 16:02: [...] 2 l tablets at bedtime. benzonatate 100mg Q.[id number] Take 1 [facility] (TESSALON) 03-[id number] 100 MG 00:00: 00:00 3D (100 mg Hospita capsule 00 :00 total) by l mouth 3 (three) times a day as needed for cough for up to 30 days. albuterol [id number] 2.5mg Q6H Take 3 mL [facility] (ACCUNEB) [...] with device powder for inhalation ipratropium No [id number] 3mL Q.18204211 Take 3 mL [facility] -albuteroL 12-[id number] (DUO-NEB) 00:00: 04:59 3D nebulizati [...] for sundowning and restlessne ss. ergocalcife 2019-08 [id number] Q7D Take 1 M ethodi rol 01-29 [...] Date Status Commen ts Source [facility] 2021-04[facility]05 Completed [facility] 00:00:00 [facility] 2021-04-04 Completed [facility] 00:00:00 [facility] 2021-04-03 Completed [facility] 00[facility]00:00 [facility] 2021-04-02 Completed [facility] 00:00:00 [facility] 2021-04-01 Completed [facility] 00:00:00 Hospital FLUZONE QUAD 2020-05-01 Completed [facility] 00:00:00 Hospital FLUZONE HIGH-DOSE PF 2019-07-19 Completed Meth odist 00:00:00 Hospital Td, Unspecified 2019-01-17 Completed [facility] 00:00:00 [facility] FLUZONE HIGH-DOSE PF 2018-08-03 Completed Meth odist 00:00:00 Hospital FLUZONE QUAD 2018-05-31 Completed [facility] 00:00:00 Hospital Pneumococcal 2017-05-31 Completed [facility] Polysaccharide 00:00:00 Hospital Pneumococcal 2017-03-01 Completed [facility] Conjugate 13-Valent 00:00:00 Hospi mario Pneumococcal 2015-08-12 Completed [facility] Conjugate 13-Valent 00:00:00 Hospi mario Pneumococcal 2015-03-15 Completed [facility] Conjugate 13-Valent 00:00:00 [facility] FLUZONE HIGH-DOSE PF 2014-08-31 Completed Meth odist 00:00:00 [facility] Influenza Trivalent 2014-07-05 Completed Metho dist 00:00:00 Hospital Zoster 2014-04-26 Completed [facility] 00:00:00 Hospital Influenza, 2012-08-31 Completed [facility] Unspecified 00:00:00 Hospital Influenza Trivalent 2012-06-22 Completed Metho dist 00:00:00 Hospital Influenza Trivalent 2011-06-30 Completed Metho dist 00:00:00 [facility] Influenza Trivalent 2010-07-01 Completed Metho dist 00:00:00 Hospital Pneumococcal 2008-08-31 Completed [facility] Conjugate 13-Valent 00:00:00 [facility] mario Tdap 2008-08-31 Completed [facility] 00:00:00 Hospital Influenza Trivalent 2007-06-16 Completed Metho [...] Oxygen saturation in 2021-07-18 18:58:00 97 /min [facility] Arterial blood by Pulse oximetry Body temperature 2021-05-09 12:44:13 36.33 Maryellen [facility] Respiratory rate 2021-05-09 12:44:13 18 /min [facility] Body height 2021-04-22 09:00:00 165.1 cm [facility] Body weight 2021-04-22 09:00:00 79.1 kg [facility] BMI 2021-04-22 09:00:00 29.02 kg/m2 [facility] Procedures Procedure Date / Time Performing Clinician Source Performed DURABLE MEDICAL EQUIPMENT 2021-05-08 21:20:18 [facility] COVID-19 QUALITATIVE 2021-05-07 20:35:00 [facility] RT-PCR CBC WITH PLATELET AND 2021-05-07 11:28:[address] [facility] [place] [place] DIFFERENTIAL BASIC METABOLIC PANEL 2021-05-07 11:28:[address] [facility] [place] ESTIMATED GFR 2021-05-07 11:28:00 [facility] MANUAL DIFFERENTIAL 2021-05-07 11:28:00 [facility] CBC WITH PLATELET AND 2021-05-06 08:48:00 [facility] DIFFERENTIAL BASIC METABOLIC PANEL 2021-05-06 08:48:00 [facility] ESTIMATED GFR 2021-05-06 08:48:00 [facility] MANUAL DIFFERENTIAL 2021-05-06 08:48:00 [facility] DURABLE MEDICAL EQUIPMENT 2021-05-03 16:45:59 Muriel Benavides [facility] POC GLUCOSE 2021-05-03 13:25:00 [facility] BASIC METABOLIC PANEL 2021-05-03 09:40:00 Muriel Benavides [facility] CBC HEMOGRAM 2021-05-03 09:40:00 Muriel Benavides [facility] spital ESTIMATED GFR 2021-05-03 09:40:00 [facility] SME[facility] RE[facility] 2021-05-03 09:40:00 Muriel Benavides spital POC GLUCOSE 2021-05-02 21:55:00 [facility] POC GLUCOSE 2021-05-02 16:56:00 [facility] POC GLUCOSE 2021-05-02 12:34:00 [facility] CBC WITH PLATELET AND 2021-05-02 09:12:[address] [facility] [place] DIFFERENTIAL BASIC METABOLIC PANEL 2021-05-02 09:12:[address] [facility] [place] MAGNESIUM LEVEL 2021-05-02 09:12:00 [facility] PHOSPHORUS LEVEL 2021-05-02 09:12:00 [facility] ESTIMATED GFR 2021-05-02 09:12:00 [facility] MANUAL DIFFERENTIAL 2021-05-02 09:12:00 [facility] POC GLUCOSE 2021-05-02 02:39:00 [facility] POC GLUCOSE 2021-05-01 23:23:00 [facility] COVID-19 QUALITATIVE 2021-05-01 23:06:00 [facility] RT-PCR POC GLUCOSE 2021-05-01 17:19:00 [facility] POC GLUCOSE 2021-05-01 14:09:00 [facility] CBC WITH PLATELET AND 2021-05-01 08:28:[address] [facility] [place] DIFFERENTIAL BASIC METABOLIC PANEL 2021-05-01 08:28:[address] [facility] [place] MAGNESIUM LEVEL 2021-05-01 08:28:00 [facility] PHOSPHORUS LEVEL 2021-05-01 08:28:00 [facility] ESTIMATED GFR 2021-05-01 08:28:00 [facility] MANUAL DIFFERENTIAL 2021-05-01 08:28:00 Handley [facility] POC GLUCOSE 2021-04-30 20:36:00 Handley [facility] POC GLUCOSE 2021-04-30 16:53:00 [facility] POC GLUCOSE 2021-04-30 13:58:00 [facility] POC GLUCOSE 2021-04-30 13:20:00 [facility] POC GLUCOSE 2021-04-30 09:54:00 [facility] CBC WITH PLATELET AND 2021-04-30 08:41:00 [facility] DIFFERENTIAL BASIC METABOLIC PANEL 2021-04-30 08:41:00 [facility] ESTIMATED GFR 2021-04-30 08:41:00 [facility] MANUAL DIFFERENTIAL 2021-04-30 08:41:00 [facility] POC GLUCOSE 2021-04-30 06:32:00 [facility] POC GLUCOSE 2021-04-30 05:57:00 [facility] POC GLUCOSE 2021-04-30 03:14:00 [facility] POC GLUCOSE 2021-04-29 22:25:00 [facility] POC GLUCOSE 2021-04-29 17:18:00 [facility] POC GLUCOSE 2021-04-29 13:43:00 [facility] B NATRIURETIC PEPTIDE 2021-04-29 09:49:00 Handley [facility] BASIC METABOLIC PANEL 2021-04-29 09:49:00 [facility] ESTIMATED GFR 2021-04-29 09:49:00 Handley [facility] POC GLUCOSE 2021-04-29 09:40:00 [facility] POC GLUCOSE 2021-04-29 06:16:00 [facility] POC GLUCOSE 2021-04-29 01:59:00 [facility] POC GLUCOSE 2021-04-28 21:52:00 [facility] POC GLUCOSE 2021-04-28 17:52:00 [facility] POC GLUCOSE 2021-04-28 13:35:00 [facility] POC GLUCOSE 2021-04-28 11:17:00 [facility] BASIC METABOLIC PANEL 2021-04-28 10:30:00 [facility] MAGNESIUM LEVEL 2021-04-28 10:30:00 [facility] PHOSPHORUS LEVEL 2021-04-28 10:30:00 [facility] ESTIMATED GFR 2021-04-28 10:30:00 [facility] CBC WITH PLATELET AND 2021-04-28 10:27:00 [facility] DIFFERENTIAL MANUAL DIFFERENTIAL 2021-04-28 10:27:00 [facility] POC GLUCOSE 2021-04-28 07:32:00 [facility] POC GLUCOSE 2021-04-28 03:37:00 [facility] POC GLUCOSE 2021-04-27 22:25:00 [facility] POC GLUCOSE 2021-04-27 17:49:00 [facility] POC GLUCOSE 2021-04-27 14:49:00 [facility] CBC WITH PLATELET AND 2021-04-27 11:27:00 [facility] DIFFERENTIAL BASIC METABOLIC PANEL 2021-04-27 11:27:00 [facility] 2021-04-27 11:27:00 [facility] PHOSPHORUS LEVEL 2021-04-27 11:27:00 [facility] B NATRIURETIC PEPTIDE 2021-04-27 11:27:00 [facility] ESTIMATED GFR 2021-04-27 11:27:00 [facility] MANUAL DIFFERENTIAL 2021-04-27 11:27:00 [facility] POC GLUCOSE 2021-04-27 09:13:00 [facility] POC GLUCOSE 2021-04-27 04:26:00 [facility] POC GLUCOSE 2021-04-27 01:53:00 [facility] POC GLUCOSE 2021-04-26 22:13:00 [facility] POC GLUCOSE 2021-04-26 19:01:00 [facility] TRANSFUSE RED BLOOD CELLS 2021-04-26 18:07:00 [facility] PREPARE RBC 2021-04-26 15:33:00 [facility] POC GLUCOSE 2021-04-26 15:32:00 [facility] POC GLUCOSE 2021-04-26 13:09:00 [facility] CBC WITH PLATELET AND 2021-04-26 10:55:00 [facility] DIFFERENTIAL BASIC METABOLIC PANEL 2021-04-26 10:55:00 [facility] MAGNESIUM LEVEL 2021-04-26 10:55:00 [facility] PHOSPHORUS LEVEL 2021-04-26 10:55:00 [facility] ESTIMATED GFR 2021-04-26 10:55:00 [facility] 2021-04-26 10:55:00 HandleyKali erazo [facility] POC GLUCOSE 2021-04-26 09:22:00 [facility] POC GLUCOSE 2021-04-26 05:04:00 [facility] POC GLUCOSE 2021-04-26 01:03:00 [facility] POC GLUCOSE 2021-04-25 23:08:00 [facility] POC GLUCOSE 2021-04-25 17:33:00 [facility] POC GLUCOSE 2021-04-25 13:20:00 [facility] CBC WITH PLATELET AND 2021-04-25 11:02:00 [facility] DIFFERENTIAL BASIC METABOLIC PANEL 2021-04-25 11:02:00 [facility] MAGNESIUM LEVEL 2021-04-25 11:02:00 [facility] PHOSPHORUS LEVEL 2021-04-25 11:02:00 [facility] ESTIMATED GFR 2021-04-25 11:02:00 [facility] MANUAL DIFFERENTIAL 2021-04-25 11:02:00 [facility]SE 2021-04-25 09:30:00 [facility] POC GLUCOSE 2021-04-25 05:17:00 [facility] POC GLUCOSE 2021-04-25 01:27:00 [facility] POC GLUCOSE 2021-04-24 21:55:00 [facility] FL MODIFIED BARIUM 2021-04-24 20:24:21 HandleyKali jiménez [facility] POC GLUCOSE 2021-04-24 17:20:00 [facility] POC GLUCOSE 2021-04-24 13:05:00 [facility] POC GLUCOSE 2021-04-24 09:36:00 [facility] D-DIMER 2021-04-24 09:24:00 N[facility]it, [facility] CBC WITH PLATELET AND 2021-04-24 09:24:00 [facility] DIFFERENTIAL BASIC METABOLIC PANEL 2021-04-24 09:24:[address] [facility] [place] MAGNESIUM LEVEL 2021-04-24 09:24:00 [facility] PHOSPHORUS LEVEL 2021-04-24 09:24:00 [facility] ESTIMATED GFR 2021-04-24 09:24:00 [facility] MANUAL DIFFERENTIAL 2021-04-24 09:24:00 [facility] POC GLUCOSE 2021-04-24 05:08:00 [facility] XR ABDOMEN 1 VW PORTABLE 2021-04-24 00:25:10 [facility] POC GLUCOSE 2021-04-24 00:15:00 [facility] CBC WITH PLATELET AND 2021-04-23 09:51:00 Angela Martino [facility] DIFFERENTIAL COMPREHENSIVE METABOLIC 2021-04-23 09:51:00 [facility] PANEL D-DIMER 2021-04-23 09:51:00 [facility] ESTIMATED GFR 2021-04-23 09:51:00 Martino [facility] MANUAL DIFFERENTIAL 2021-04-23 09:51:00 Angela Martino [facility] POC GLUCOSE 2021-04-23 09:49:00 [facility] POC GLUCOSE 2021-04-23 04:58:00 [facility] POC GLUCOSE 2021-04-23 02:10:00 HandleyKali jiménez. [facility] POC GLUCOSE 2021-04-22 17:32:00 HandleyKali jiménez T. [facility] POC GLUCOSE 2021-04-22 13:31:00 Handley [facility] T. [facility] POC GLUCOSE 2021-04-22 10:14:00 [facility] Nolberto. [facility] HC COMPLETE BLD COUNT 2021-04-22 08:55:00 Martino [facility] W/AUTO DIFF COMPREHENSIVE METABOLIC 2021-04-22 08:55:00 [facility] PANEL D-DIMER 2021-04-22 08:55:00 Kelsie Serra [facility] martha Grimse ESTIMATED GFR 2021-04-22 08:55:00 HandleyKali jiménez [facility] POC GLUCOSE 2021-04-22 05:08:00 Handley jessy Kaufman [facility] POC GLUCOSE 2021-04-21 22:31:00 HandleyKali [facility] POC GLUCOSE 2021-04-21 17:39:00 [facility] jessy Kaufman [facility] XR CHEST 1 VW PORTABLE 2021-04-21 14:22:08 Denisa [facility] Deepa Machelle POC GLUCOSE 2021-04-21 13:37:00 Handley osorio Mandeep [facility] ECG 12-LEAD 2021-04-21 12:11:07 Brian Maldonado martha Sykesandra Machelle CBC WITH PLATELET AND 2021-04-21 10:41:[address] [facility] DIFFERENTIAL COMPREHENSIVE METABOLIC 2021-04-21 10:41:00 [facility] PANEL ESTIMATED GFR 2021-04-21 10:41:00 HandleyKali jiménez. [facility] MANUAL DIFFERENTIAL 2021-04-21 10:41:00 HandleyKali jiménez [facility] POC GLUCOSE 2021-04-21 10:27:00 HandleyKali [facility] POC GLUCOSE 2021-04-21 05:27:00 Kali Handley [facility] POC GLUCOSE 2021-04-21 02:10:00 Kali Handley. [facility] POC GLUCOSE 2021-04-20 22:45:00 HandleyKali jiménez [facility] POC GLUCOSE 2021-04-20 17:11:00 HandleyKali jiménez [facility] XR CHEST 1 VW PORTABLE 2021-04-20 14:12:35 [facility] POC GLUCOSE 2021-04-20 13:13:00 Kali Handley [facility] POC GLUCOSE 2021-04-20 10:03:00 Kali Handley [facility] COMPREHENSIVE METABOLIC 2021-04-20 06:38:00 Kali Handley [facility] PANEL CBC WITH PLATELET AND 2021-04-20 06:38:00 Kali Handley [facility] DIFFERENTIAL ESTIMATED GFR 2021-04-20 06:38:00 Kali Handley [facility] MANUAL DIFFERENTIAL 2021-04-20 06:38:00 Kali Handley [facility] POC GLUCOSE 2021-04-20 05:27:00 Kali Handley [facility] POC GLUCOSE 2021-04-20 02:09:00 HandleyKali jiménez [facility] POC GLUCOSE 2021-04-19 21:42:00 Kali Handley [facility] XR CHEST 1 VW PORTABLE 2021-04-19 21:28:35 [facility] POC GLUCOSE 2021-04-19 17:47:00 HandleyKali jiménez [facility] POC GLUCOSE 2021-04-19 13:25:00 HandleyKali jiménez [facility] POC GLUCOSE 2021-04-19 09:25:00 HandleyKali jiménez [facility] C-REACTIVE PROTEIN 2021-04-19 09:21:00 Kali Handley [facility] COMPREHENSIVE METABOLIC 2021-04-19 09:21:00 Kali Handley [facility] PANEL CBC WITH PLATELET AND 2021-04-19 09:21:00 Kali Handley [facility] DIFFERENTIAL D-DIMER 2021-04-19 09:21:00 Tr[address] Benavidesushree [facility] FERRITIN LEVEL 2021-04-19 09:21:00 Kennedy, [facility] Ho spital FIBRINOGEN 2021-04-19 09:21:00 Kennedy, [facility] Ho spital INTERLEUKIN 6 2021-04-19 09:21:00 Kennedy, [facility] Ho spital MAGNESIUM LEVEL 2021-04-19 09:21:00 Kennedy, [facility] Ho spital PHOSPHORUS LEVEL 2021-04-19 09:21:00 Kennedy, [facility] H ospital CRP HIGH SENSITIVITY 2021-04-19 09:21:00 Tracie Benavidesushree [facility] ESTIMATED GFR 2021-04-19 09:21:00 Kali Handley [facility] BILIRUBIN DIRECT 2021-04-19 09:21:00 [facility] Hospital[facility] MANUAL DIFFERENTIAL 2021-04-19 09:21:00 [facility] POC GLUCOSE 2021-04-19 05:49:00 [facility] POC GLUCOSE 2021-04-19 01:21:00 [facility] POTASSIUM LEVEL 2021-04-19 00:51:00 Sorinitit, Kelsie [facility] [place] MAGNESIUM LEVEL 2021-04-19 00:51:00 Ngitit, Kelsie [facility] [place] POC GLUCOSE 2021-04-18 22:45:00 [facility] XR CHEST 1 VW PORTABLE 2021-04-18 18:00:00 Joel [facility] Deepa Nicole POC GLUCOSE 2021-04-18 17:06:00 [facility] ECG 12-LEAD 2021-04-18 13:56:40 Nelson Schrader [facility] POC GLUCOSE 2021-04-18 13:34:00 [facility]SE 2021-04-18 10:40:00 Handley [facility] C-REACTIVE PROTEIN 2021-04-18 06:59:00 Handley [facility] COMPREHENSIVE METABOLIC 2021-04-18 06:59:00 [facility] PANEL ESTIMATED GFR 2021-04-18 06:59:00 Handley [facility] CBC WITH PLATELET AND 2021-04-18 06:58:00 Handley [facility] DIFFERENTIAL B NATRIURETIC PEPTIDE 2021-04-18 06:58:00 [facility] MANUAL DIFFERENTIAL 2021-04-18 06:58:00 Handley [facility] POC GLUCOSE 2021-04-18 06:48:00 Handley [facility] POC GLUCOSE 2021-04-18 01:40:00 Handley [facility] POC GLUCOSE 2021-04-17 22:36:00 [facility] POC GLUCOSE 2021-04-17 17:50:00 Handley [facility] POC GLUCOSE 2021-04-17 13:19:00 [facility] POC GLUCOSE 2021-04-17 10:11:00 Handley [facility] POC GLUCOSE 2021-04-17 06:49:00 Handley [facility] C-REACTIVE PROTEIN 2021-04-17 06:34:00 Handley [facility] CBC WITH PLATELET AND 2021-04-17 06:34:00 Handley [facility] DIFFERENTIAL COMPREHENSIVE METABOLIC 2021-04-17 06:34:00 HandleyRachelen [facility] PANEL ESTIMATED GFR 2021-04-17 06:34:00 Handley [facility] MANUAL DIFFERENTIAL 2021-04-17 06:34:00 [facility] POC GLUCOSE 2021-04-17 01:52:00 [facility] XR CHEST 1 VW PORTABLE 2021-04-16 22:04:00 Kelsie Serra [facility] [place] POC GLUCOSE 2021-04-16 21:25:00 [facility] POC GLUCOSE 2021-04-16 17:27:00 [facility] POC GLUCOSE 2021-04-16 13:23:00 [facility] ECG 12-LEAD 2021-04-16 10:30:15 Brian Maldonado [facility] Deepa Carty COMPLETE BLD COUNT 2021-04-16 10:05:00 [facility] W/AUTO DIFF COMPREHENSIVE METABOLIC 2021-04-16 10:05:00 [facility] PANEL C-REACTIVE PROTEIN 2021-04-16 10:05:00 [facility] ESTIM[facility] GFR 2021-04-16 10:05:00 [facility] VANCOMYCIN LEVEL, TROUGH 2021-04-16 10:05:00 [facility] SMEAR REVIEW 2021-04-16 10:05:00 [facility] POC GLUCOSE 2021-04-16 10:01:00 [facility] POC GLUCOSE 2021-04-16 05:49:00 [facility] POC GLUCOSE 2021-04-16 02:03:00 [facility] POC GLUCOSE 2021-04-15 22:57:00 [facility] POC GLUCOSE 2021-04-15 17:26:00 [facility] XR CHEST 1 VW PORTABLE 2021-04-15 17:15:00 [facility] POC GLUCOSE 2021-04-15 13:27:00 [facility] CBC WITH PLATELET AND 2021-04-15 11:14:00 OsborneMae woodarg [facility] DIFFERENTIAL C-REACTIVE PROTEIN 2021-04-15 11:14:00 CampusLeilani [facility] D-DIMER 2021-04-15 11:14:00 [facility] ESTIMATED GFR 2021-04-15 11:14:00 [facility] COMPREHENSIVE METABOLIC 2021-04-15 11:14:00 [facility] PANEL MANUAL DIFFERENTIAL 2021-04-15 11:14:00 [facility] POC GLUCOSE 2021-04-15 09:43:00 [facility] POC GLUCOSE 2021-04-15 06:05:00 [facility] POC GLUCOSE 2021-04-15 01:36:00 [facility] POC GLUCOSE 2021-04-14 22:39:00 [facility] CBC WITH PLATELET AND 2021-04-14 19:00:[address] [facility] [place] [place] DIFFERENTIAL MANUAL DIFFERENTIAL 2021-04-14 19:00:00 [facility] HC COMPLETE BLD COUNT 2021-04-14 18:26:00 [facility] Deepa Ernandezle POC GLUCOSE 2021-04-14 18:07:00 [facility] POC GLUCOSE 2021-04-14 14:05:00 [facility] HC COMPLETE BLD COUNT 2021-04-14 12:48:00 [facility] W/AUTO DIFF SMEAR REVIEW 2021-04-14 12:48:00 [facility] BASIC METABOLIC PANEL 2021-04-14 10:50:00 [facility] HC COMPLETE BLD COUNT 2021-04-14 10:50:[address] [facility] [place] [place] W/AUTO DIFF PERIPHERAL SMEAR 2021-04-14 10:50:00 [facility] FERRITIN LEVEL 2021-04-14 10:50:00 [facility] ospital FOLATE LEVEL 2021-04-14 10:50:00 [facility] ospital THYROID STIMULATING 2021-04-14 10:50:00 [facility] HORMONE TOTAL IRON BINDING 2021-04-14 10:50:00 [facility] CAPACITY VITAMIN B12 LEVEL 2021-04-14 10:50:00 [facility] RETICULOCYTE COUNT 2021-04-14 10:50:00 [facility] ESTIMATED GFR 2021-04-14 10:50:00 [facility] POC GLUCOSE 2021-04-14 09:33:00 [facility] POC GLUCOSE 2021-04-14 06:00:00 [facility] POC GLUCOSE 2021-04-14 02:38:00 [facility] POC GLUCOSE 2021-04-13 22:04:00 [facility] TRANSFUSE PLATELET 2021-04-13 18:30:00 [facility] PHERESIS TRANSFUSE PLATELET 2021-04-13 17:18:00 [facility] PHERESIS POC GLUCOSE 2021-04-13 17:02:00 [facility] URINE CULTURE 2021-04-13 13:34:00 [facility] URINALYSIS SCREEN AND 2021-04-13 11:49:00 [facility] MICROSCOPY, WITH REFLEX TO CULTURE PREPARE PLATELET PHERESIS 2021-04-13 11:40:00 [facility] PREPARE RBC 2021-04-13 11:40:00 Shi Rahman [facility] TYPE AND SCREEN 2021-04-13 11:40:00 [facility] PHERESIS 2021-04-13 11:27:00 [facility]SE 2021-04-13 11:21:00 [facility] ECG 12-LEAD 2021-04-13 11:11:49 Belkys Garcia spital PROTHROMBIN TIME WITH INR 2021-04-13 10:58:00 [facility] PARTIAL THROMBOPLASTIN 2021-04-13 10:58:00 [facility] TIME (PTT) FIBRINOGEN 2021-04-13 10:58:00 [facility] BASIC METABOLIC PANEL 2021-04-13 08:43:[address] [facility] [place] [place] HC COMPLETE BLD COUNT 2021-04-13 08:43:[address] [facility] [place] W/AUTO DIFF ESTIMATED GFR 2021-04-13 08:43:00 [facility] SMEAR REVIEW 2021-04-13 08:43:00 [facility] POC GLUCOSE 2021-04-13 05:14:00 [facility] POC GLUCOSE 2021-04-12 23:12:00 [facility] POC GLUCOSE 2021-04-12 22:59:00 [facility] POC GLUCOSE 2021-04-12 17:40:00 [facility] POC GLUCOSE 2021-04-12 11:23:00 [facility] ECG 12-LEAD 2021-04-12 11:08:46 Brian Maldonado D-DIMER 2021-04-12 09:40:00 Kamryn Gillette [facility] MAGNESIUM LEVEL 2021-04-12 09:40:00 [facility] PHOSPHORUS LEVEL 2021-04-12 09:40:00 Kamryn godfrey [facility] BASIC METABOLIC PANEL 2021-04-12 09:40:00 [facility] CBC WITH PLATELET AND 2021-04-12 09:40:[address] [facility] [place] [place] DIFFERENTIAL VANCOMYCIN LEVEL, TROUGH 2021-04-12 09:40:00 [facility] ESTIMATED GFR 2021-04-12 09:40:00 [facility] MANUAL DIFFERENTIAL 2021-04-12 09:40:00 [facility] POC GLUCOSE 2021-04-12 05:15:00 [facility] POC GLUCOSE 2021-04-12 01:50:00 [facility] POC GLUCOSE 2021-04-11 22:07:00 [facility] POC GLUCOSE 2021-04-11 19:19:00 [facility] POC GLUCOSE 2021-04-11 17:33:00 [facility] ECG 12-LEAD 2021-04-11 16:18:07 [facility] 2021-04-11 10:50:00 [facility] C-REACTIVE PROTEIN 2021-04-11 10:29:00 [facility] D-DIMER 2021-04-11 10:29:00 Kamryn Gillette [facility] BASIC METABOLIC PANEL 2021-04-11 10:29:00 Kamryn Gillette [facility] CBC WITH PLATELET AND 2021-04-11 10:29:00 Kamryn Gillette [facility] DIFFERENTIAL MAGNESIUM LEVEL 2021-04-11 10:29:00 Kamryn Gillette [facility] PHOSPHORUS LEVEL 2021-04-11 10:29:00 [facility] ESTIMATED GFR 2021-04-11 10:29:00 [facility] MANUAL DIFFERENTIAL 2021-04-11 10:29:[address] [facility] POC GLUCOSE 2021-04-11 04:35:00 [facility] POC GLUCOSE 2021-04-10 22:41:00 [facility] CT CHEST W CONTRAST 2021-04-10 22:17:47 [facility] ABDOMEN W CONTRAST PELVIS W CONTRAST POC GLUCOSE 2021-04-10 17:12:00 [facility] POC GLUCOSE 2021-04-10 10:42:00 [facility] C-REACTIVE PROTEIN 2021-04-10 10:30:00 [facility] D-DIMER 2021-04-10 10:30:00 [facility] BASIC METABOLIC PANEL 2021-04-10 10:30:00 [facility] CBC WITH PLATELET AND 2021-04-10 10:30:00 [facility] DIFFERENTIAL MAGNESIUM LEVEL 2021-04-10 10:30:00 [facility] PHOSPHORUS LEVEL 2021-04-10 10:30:00 [facility] ESTIMATED GFR 2021-04-10 10:30:00 [facility] MANUAL DIFFERENTIAL 2021-04-10 10:30:[address] [facility] POC GLUCOSE 2021-04-10 04:42:00 Handley [facility] POC GLUCOSE 2021-04-09 23:16:00 [facility] POC GLUCOSE 2021-04-09 17:05:00 [facility] VANCOMYCIN LEVEL, TROUGH 2021-04-09 12:30:00 [facility] XR CHEST 1 VW PORTABLE 2021-04-09 11:42:00 [facility] POC GLUCOSE 2021-04-09 11:18:00 [facility] CBC WITH PLATELET AND 2021-04-09 10:34:00 [facility] DIFFERENTIAL COMPREHENSIVE METABOLIC 2021-04-09 10:34:00 [facility] PANEL MAGNESIUM LEVEL 2021-04-09 10:34:00 [facility] PHOSPHORUS LEVEL 2021-04-09 10:34:00 [facility] BASIC METABOLIC PANEL 2021-04-09 10:34:00 [facility] B NATRIURETIC PEPTIDE 2021-04-09 10:34:00 [facility] C-REACTIVE PROTEIN 2021-04-09 10:34:00 [facility] D-DIMER 2021-04-09 10:34:00 [facility] ESTIMATED GFR 2021-04-09 10:34:00 [facility] MANUAL DIFFERENTIAL 2021-04-09 10:34:00 [facility] POC GLUCOSE 2021-04-09 04:42:00 [facility] XR ABDOMEN 1 VW PORTABLE 2021-04-09 02:54:00 [facility] POC GLUCOSE 2021-04-08 23:29:00 [facility] MISCELLANEOUS REFERRAL 2021-04-08 22:28:00 [facility] POC GLUCOSE 2021-04-08 17:24:00 [facility] XR CHEST 1 VW PORTABLE 2021-04-08 15:32:00 [facility] POC GLUCOSE 2021-04-08 13:01:00 [facility] POC GLUCOSE 2021-04-08 10:43:00 [facility] D-DIMER 2021-04-08 10:29:00 Donovan Vick [facility] INTERLEUKIN 6 2021-04-08 10:29:00 [facility] BASIC METABOLIC PANEL 2021-04-08 10:29:00 [facility] C-REACTIVE PROTEIN 2021-04-08 10:29:00 [facility] CBC WITH PLATELET AND 2021-04-08 10:29:00 [facility] DIFFERENTIAL VENOUS BLOOD GAS 2021-04-08 10:29:[address] [facility] ospimario Carty ESTIMATED GFR 2021-04-08 10:29:00 [facility] MANUAL DIFFERENTIAL 2021-04-08 10:29:00 [facility] POC GLUCOSE 2021-04-08 05:13:00 [facility] URINE CULTURE 2021-04-08 00:29:00 [facility] martha Arenas Machelle POC GLUCOSE 2021-04-07 23:29:00 [facility] ARTERIAL BLOOD GAS 2021-04-07 22:56:00 [facility] Deepa Carty CBC WITH PLATELET AND 2021-04-07 22:39:00 [facility] DIFFERENTIAL PARTIAL THROMBOPLASTIN 2021-04-07 22:39:00 Joel [facility] TIME (PTT) Deepa Carty PROTHROMBIN TIME WITH INR 2021-04-07 22:39:00 Joel [facility] Deepa Carty D-DIMER 2021-04-07 22:39:00 Brian Maldonado spital Deepa Machelle FIBRINOGEN 2021-04-07 22:39:00 Joel [facility] Deepa Machelle MANUAL DIFFERENTIAL 2021-04-07 22:39:00 Kali Handley [facility] OCCULT BLOOD, STOOL 2021-04-07 22:19:00 [facility] Deepa Carty CLOSTRIDIUM DIFFICILE 2021-04-07 22:19:00 [facility]XIN Deepa Carty URINALYSIS SCREEN AND 2021-04-07 22:19:00 [facility] MICROSCOPY, WITH REFLEX Deepa Carty TO CULTURE TYPE AND SCREEN 2021-04-07 21:14:00 [facility] martha Carty CBC WITH PLATELET AND 2021-04-07 21:14:00 [facility] Deepa Carty PROTHROMBIN TIME WITH INR 2021-04-07 21:14:00 [facility] Deepa Carty PARTIAL THROMBOPLASTIN 2021-04-07 21:14:00 [facility]isaFormerly [facility] TIME (PTT) Deepa Carty FIBRINOGEN 2021-04-07 21:14:00 [facility] martha Carty D-DIMER 2021-04-07 21:14:00 Brian Maldonado martha Carty BLOOD CULTURE, AEROBIC & 2021-04-07 21:09:00 [facility]NAER[facility]IC Deepa Carty POC GLUCOSE 2021-04-07 17:16:00 Kali Handley [facility] XR CHEST 1 VW PORTABLE 2021-04-07 13:42:00 Emmanuelle Patrizia Paredes [facility] POC GLUCOSE 2021-04-07 11:07:00 HandleyKali [facility] D-DIMER 2021-04-07 09:30:00 Donovan Vick [facility] INTERLEUKIN 6 2021-04-07 09:30:00 Kali Handley [facility] BASIC METABOLIC PANEL 2021-04-07 09:30:00 Kali Handley [facility] C-REACTIVE PROTEIN 2021-04-07 09:30:00 Handley, [facility] CBC WITH PLATELET AND 2021-04-07 09:30:00 [facility] DIFFERENTIAL FERRITIN LEVEL 2021-04-07 09:30:00 [facility] LDH 2021-04-07 09:30:00 [facility] ESTIMATED GFR 2021-04-07 09:30:00 [facility] B NATRIURETIC PEPTIDE 2021-04-07 09:30:00 [facility] MANUAL DIFFERENTIAL 2021-04-07 09:30:00 [facility] PROCALCITONIN 2021-04-07 09:30:00 [facility] POC GLUCOSE 2021-04-07 05:17:00 [facility] POC GLUCOSE 2021-04-06 23:03:00 [facility] XR ABDOMEN 1 VW PORTABLE 2021-04-06 21:44:12 [facility] XR CHEST 1 VW PORTABLE 2021-04-06 21:43:27 [facility] POC GLUCOSE 2021-04-06 18:27:00 [facility] BASIC METABOLIC PANEL 2021-04-06 15:08:00 [facility] ESTIMATED GFR 2021-04-06 15:08:00 [facility] POC GLUCOSE 2021-04-06 14:31:00 [facility] XR CHEST 1 VW PORTABLE 2021-04-06 12:38:33 Nelson Schrader [facility] ARTERIAL BLOOD GAS 2021-04-06 10:55:00 Aliya Ricci [facility] POC GLUCOSE 2021-04-06 10:22:00 [facility] D-DIMER 2021-04-06 09:20:00 Donovan Vick [facility] INTERLEUKIN 6 2021-04-06 09:20:00 [facility] BASIC METABOLIC PANEL 2021-04-06 09:20:00 [facility] C-REACTIVE PROTEIN 2021-04-06 09:20:00 [facility] CBC WITH PLATELET AND 2021-04-06 09:20:00 [facility] DIFFERENTIAL ESTIMATED GFR 2021-04-06 09:20:00 [facility] MAGNESIUM LEVEL 2021-04-06 09:20:00 [facility] PHOSPHORUS LEVEL 2021-04-06 09:20:00 [facility] MANUAL DIFFERENTIAL 2021-04-06 09:20:00 [facility] POC GLUCOSE 2021-04-06 04:38:00 [facility] ARTERIAL BLOOD GAS 2021-04-06 01:51:00 Radhames [facility] POC GLUCOSE 2021-04-05 23:12:00 [facility] XR CHEST 1 VW PORTABLE 2021-04-05 17:38:55 Gunner [facility] POC GLUCOSE 2021-04-05 17:32:00 [facility] TTE COMPLETE, W CONTRAST, 2021-04-05 14:00:00 Alonso [facility] W DOPPLER ([id number]) Esha URINE CULTURE 2021-04-05 11:50:00 Gunner [facility] POC GLUCOSE 2021-04-05 11:17:00 [facility] VENOUS BLOOD GAS 2021-04-05 09:29:00 Gunner [facility] OUIJ-[id number] IGG 2021-04-05 09:19:00 [facility] INTERLEUKIN 6 2021-04-05 09:19:00 [facility] D-DIMER 2021-04-05 09:19:00 [facility] SEDIMENTATION RATE 2021-04-05 09:19:00 [facility] C-REACTIVE PROTEIN 2021-04-05 09:19:00 [facility] PROCALCITONIN 2021-04-05 09:19:00 [facility] URINALYSIS SCREEN AND 2021-04-05 09:19:00 [facility] MICROSCOPY, WITH REFLEX TO CULTURE LACTIC ACID LEVEL 2021-04-05 09:19:00 [facility] CBC WITH PLATELET AND 2021-04-05 09:19:[address] [facility] [place] [place] DIFFERENTIAL COMPREHENSIVE METABOLIC 2021-04-05 09:19:00 [facility] PANEL ESTIMATED GFR 2021-04-05 09:19:00 [facility] MANUAL DIFFERENTIAL 2021-04-05 09:19:00 [facility] BLOOD CULTURE, AEROBIC & 2021-04-05 09:18:00 [facility] ANAEROBIC ECG 12-LEAD 2021-04-05 08:57:27 [facility] POC GLUCOSE 2021-04-05 05:28:00 [facility] POC GLUCOSE 2021-04-05 01:48:00 [facility] ECG 12-LEAD 2021-04-04 20:49:08 [facility] XR ABDOMEN 1 VW 2021-04-04 17:33:25 [facility] US DUPLEX VENOUS LOWER 2021-04-04 16:25:00 Alonso Aliya [facility] EXTREMITY BILATERAL Esha ARTERIAL BLOOD GAS 2021-04-04 13:50:00 [facility] Esha XR CHEST 1 VW PORTABLE 2021-04-04 13:49:25 Aliya Gupta [facility] Esha CBC WITH PLATELET AND 2021-04-04 10:23:00 [facility] DIFFERENTIAL MANUAL DIFFERENTIAL 2021-04-04 10:23:00 [facility] C-REACTIVE PROTEIN 2021-04-04 08:32:00 [facility] INTERLEUKIN 6 2021-04-04 08:32:00 [facility] FERRITIN LEVEL 2021-04-04 08:32:00 [facility] D-DIMER 2021-04-04 08:32:00 [facility] LDH 2021-04-04 08:32:00 [facility] BASIC METABOLIC PANEL 2021-04-04 08:32:00 Handley [facility] ESTIMATED GFR 2021-04-04 08:32:00 [facility] XR ABDOMEN 1 VW 2021-04-03 16:57:25 [facility] XR CHEST 1 VW PORTABLE 2021-04-03 10:28:33 [facility]app [facility] COVID-19 ANTI-SPIKE IGG 2021-04-03 08:47:00 [facility] ANTIBODY TITER C-REACTIVE PROTEIN 2021-04-03 08:47:00 [facility] INTERLEUKIN 6 2021-04-03 08:47:00 [facility] FERRITIN LEVEL 2021-04-03 08:47:00 [facility] D-DIMER 2021-04-03 08:47:00 [facility] LDH 2021-04-03 08:47:00 [facility] BASIC METABOLIC PANEL 2021-04-03 08:47:00 [facility] CBC WITH PLATELET AND 2021-04-03 08:47:[address] [facility] [place] [place] DIFFERENTIAL ESTIMATED GFR 2021-04-03 08:47:00 [facility] MANUAL DIFFERENTIAL 2021-04-03 08:47:00 [facility] TRANSFUSE RED BLOOD CELLS 2021-04-03 03:27:00 [facility] TRANSFUSE RED BLOOD CELLS 2021-04-02 22:52:00 [facility] PREPARE RBC 2021-04-02 20:13:00 [facility] MRSA PCR 2021-04-02 10:19:00 Rehrer, [facility] COMPREHENSIVE METABOLIC 2021-04-02 10:17:00 Rehrer, [facility] PANEL C-REACTIVE PROTEIN 2021-04-02 10:17:00 Rehrer, [facility] CBC WITH PLATELET AND 2021-04-02 10:17:00 Rehrer, [facility] DIFFERENTIAL LDH 2021-04-02 10:17:00 Rehrer, [facility] INTERLEUKIN 6 2021-04-02 10:17:00 Rehrer, [facility] D-DIMER 2021-04-02 10:17:00 Rehrer, [facility] ESTIMATED GFR 2021-04-02 10:17:00 Rehrer, [facility] MANUAL DIFFERENTIAL 2021-04-02 10:17:00 Rehrer, [facility] BLOOD SMEAR CONSULT 2021-04-02 10:17:00 Rehrer, [facility] PLATELET COUNT, MANUAL 2021-04-02 10:17:00 Rehrer, [facility] MRSA PCR 2021-04-02 08:48:[address] [facility] ospital PROCALCITONIN 2021-04-02 03:59:00 Arsalan Sapp [facility] D-DIMER 2021-04-01 15:06:00 [facility] SEDIMENTATION RATE 2021-04-01 15:06:00 [facility] C-REACTIVE PROTEIN 2021-04-01 15:06:00 [facility] LDH 2021-04-01 15:06:00 [facility] INTERLEUKIN 6 2021-04-01 15:06:00 [facility] BASIC METABOLIC PANEL 2021-04-01 15:06:00 [facility] PROCALCITONIN 2021-04-01 15:06:00 [facility] PERIPHERAL SMEAR 2021-04-01 15:06:00 [facility] ESTIMATED GFR 2021-04-01 15:06:00 [facility] SPUTUM CULTURE 2021-04-01 09:52:00 [facility] GRAM STAIN 2021-04-01 09:52:00 [facility] COMPREHENSIVE METABOLIC 2021-04-01 09:52:00 [facility] PANEL ESTIMATED GFR 2021-04-01 09:52:00 [facility] LACTIC ACID LEVEL, SEPSIS 2021-04-01 05:07:00 [facility] - NOW AND REPEAT 2X EVERY 3 HOURS TROPONIN 2021-04-01 05:07:00 [facility] COMPREHENSIVE METABOLIC 2021-04-01 05:07:00 [facility] PANEL ESTIMATED GFR 2021-04-01 [facility]:07[facility]LO[facility]AS 2021-04-01 05:06:[facility] LACTIC ACID LEVEL, SEPSIS 2021-04-01 01:04:00 [facility] NOW AND REPEAT 2X EVERY 3 HOURS TROPONIN 2021-04-01 01:04:00 Rehrer, [facility] URINE CULTURE 2021-04-01 00:07:00 Rehrer, [facility] ECG 12-LEAD 2021-03-31 23:47:56 Rehrer, [facility] CBC WITH PLATELET AND 2021-03-31 22:54:00 Rehrer, [facility] DIFFERENTIAL PROTHROMBIN TIME WITH INR 2021-03-31 22:54:00 [facility], [facility] PARTIAL THROMBOPLASTIN 2021-03-31 22:54:00 Rehrer, [facility] TIME (PTT) URINALYSIS SCREEN AND 2021-03-31 22:54:00 Rehrer, [facility] MICROSCOPY, WITH REFLEX TO CULTURE PHOSPHORUS LEVEL 2021-03-31 22:54:00 Rehrer, [facility] MAGNESIUM LEVEL 2021-03-31 22:54:00 Rehrer, [facility] LACTIC ACID LEVEL, SEPSIS 2021-03-31 22:54:00 Rehrer, [facility] - NOW AND REPEAT 2X EVERY 3 HOURS CREATINE KINASE, TOTAL 2021-03-31 22:54:00 Rehrer, [facility] (CPK) TROPONIN 2021-03-31 22:54:00 Rehrer, [facility] B NATRIURETIC PEPTIDE 2021-03-31 22:54:00 Rehrer, [facility] MANUAL DIFFERENTIAL 2021-03-31 22:54:00 Rehrer, [facility] RESPIRATORY PATHOGEN 2021-03-31 22:48:00 Rehrer, [facility] PANEL WITH COVID-19 RT-PCR CT CHEST WO CONTRAST 2021-03-31 22:18:07 Rehrer, [facility] Met [facility] CT STROKE BRAIN WO 2021-03-31 22:04:55 Juancarlos Ayala [facility] CONTRAST BLOOD CULTURE, AEROBIC & 2021-03-31 21:58:00 Rehrer, [facility] ANAEROBIC ECG ED PRELIMINARY 2021-03-31 21:56:14 Rehrer, [facility] INTERPRETATION [place] CRITICAL CARE, E/M 2021-03-31 21:56:14 Rehrer, [facility] 30-74 MINUTES FL MODIFIED BARIUM 2020-12-17 20:20:[facility]AL[facility]IN 2020-12-15 17:58:00 [facility] XR CHEST 1 VW PORTABLE 2020-12-15 16:45:00 [facility] STREPTOCOCCUS PNEUMONIAE 2020-12-14 09:29:00 [facility] URINARY ANTIGEN LEGIONELLA URINARY 2020-12-14 09:29:00 [facility] ANTIGEN URINE CULTURE 2020-12-14 09:29:00 [facility] 2020-12-14 09:29:00 Esha Hancock [facility] URINALYSIS SCREEN AND 2020-12-14 09:29:00 [facility] MICROSCOPY, WITH REFLEX TO CULTURE CBC WITH PLATELET AND 2020-12-14 09:29:00 [facility] DIFFERENTIAL BASIC METABOLIC PANEL 2020-12-14 09:29:00 [facility] MAGNESIUM LEVEL 2020-12-14 09:29:00 [facility] ESTIM[facility] GFR 2020-12-14 09:29:00 [facility] MANUAL DIFFERENTIAL 2020-12-14 09:29:00 Juanita [facility] TROPONIN 2020-12-14 06:57:00 Esha Hancock [facility] CT ANGIOGRAM PE CHEST 2020-12-14 03:37:09 Esha Hancock [facility] [place] CRITICAL CARE, E/M 2020-12-14 03:11:38 Esha Hancock Renetta [facility] 30-74 MINUTES XR CHEST 1 VW PORTABLE 2020-12-14 03:00:00 Esha Hancock [facility] RESPIRATORY PATHOGEN 2020-12-14 02:18:00 Esha Hancock Renetta [facility] PANEL WITH COVID-19 RT-PCR COMPREHENSIVE METABOLIC 2020-12-14 01:38:00 Santi [facility] PANEL LACTIC ACID LEVEL, SEPSIS 2020-12-14 01:38:00 Santi [facility] - NOW AND REPEAT 2X EVERY 3 HOURS PROTHROMBIN TIME WITH INR 2020-12-14 01:38:00 Santi [facility] PARTIAL THROMBOPLASTIN 2020-12-14 01:38:[address] [facility] [facility] [address] TIME (PTT) CBC WITH PLATELET AND 2020-12-14 01:38:00 Santi [facility] DIFFERENTIAL TROPONIN 2020-12-14 01:38:00 Santi [facility] B NATRIURETIC PEPTIDE 2020-12-14 01:38:00 Santi [facility] ESTIMATED GFR 2020-12-14 01:38:00 Santi [facility] MANUAL DIFFERENTIAL 2020-12-14 01:38:00 Santi [facility] ECG 12-LEAD 2020-12-14 01:35:46 Santi [facility] BLOOD CULTURE, AEROBIC & 2020-12-14 01:25:00 [facility] ANAEROBIC URINE CULTURE 2020-12-12 16:44:00 [facility] CBC WITH PLATELET AND 2020-12-12 16:44:00 [facility] DIFFERENTIAL COMPREHENSIVE METABOLIC 2020-12-12 16:44:00 [facility] PANEL VITAMIN D 25 HYDROXY 2020-12-12 16:44:00 [facility] LEVEL URINALYSIS, COMPLETE, 2020-12-12 16:44:00 [facility] WITH REFLEX TO CULTURE THYROID STIMULATING 2020-12-12 16:44:00 [facility] HORMONE XR CHEST 2 VW 2020-12-12 16:40:38 [facility] Planned Activity Planned Date Details Comments Source Future Scheduled 2021-10-01 [facility] 13:14:07 (1) [code = COVID-19 VACCINE (1)] Future Scheduled 2021-10-01 [facility] 13:14:07 screening (procedure) [code = 198533271] Future Scheduled 2021-10-01 SHINGLES VACCINES [facility] Test 13:14:07 (#2) [code = SHINGLES VACCINES (#2)] Future Scheduled 2021-10-01 INFLUENZA VACCINE Method [facility] Test 13:14:07 [code = INFLUENZA VACCINE] Encounters Start End Encounter Admission Attending Care Care Encounter Source Date/Time Date/Time Type Type Clinicians Facility Department ID 2022-01-01 2022-01-01 Outpatient MARITO, [facility] [id number] [place] 00:00:00 00:00:00 CARLOTA 538 Method i 2021-12-23 2021-12-23 Outpatient TAMMY, [facility] [id number] [place] 00:00:00 00:00:00 ML [address] 2021-12-10 2021-12-10 Outpatient Lapin_S [facility] [id number] [place] 10:21:00 10:21:00 [id number] [facility] 2021-12-09 2021-12-09 Outpatient RICE, [facility] [id number] [place] 00:00:00 00:00:00 ML [address] 2021-12-09 2021-12-09 Outpatient RICE, [facility] [id number] [place] 00:00:00 00:00:00 ML [address] 2021-12-09 2021-12-09 Outpatient MUTHUSWAMY, [facility] [id number] [place] 00:00:00 00:00:00 NASRIN [address] 2021-12-05 2021-12-05 Outpatient Lapin_S [facility] [id number] [place] 10:14:00 10:14:00 [id number] [facility] 2021-12-04 2021-12-04 Outpatient Lapin_S [facility] [id number] [place] 03:49:00 03:49:00 [facility] 2021-12-04 2021-12-04 Outpatient Lapin, [facility] [id number] 2-b 00:00:00 00:00:00 Domenic [id number] Kody [id number] 202423 2899-04-04 2021-12-02 Outpatient Lapin_S [facility] [id number] [place] 02:51:00 02:51:00 [id number] [facility] 2021-10-22 2021-10-22 Outpatient ESTRADA, [facility] [id number] [place] 00:00:00 00:00:00 SUNEESH [address] 2021-10-22 2021-10-22 Outpatient ESTRADA, [facility] [id number] [place] 00:00:00 00:00:00 SUNEESH [address] 2021-09-30 2021-09-30 Telemedici Carolin, 1.2.840.1 [id number] Methodi 12:48:04 13:39:50 ne Suneesh 14366.1.[address] [facility] 3.430.2.7 Hospit a .3.076453 l .8 2021-09-27 2021-09-27 Orders Shaq, 1.2.840.1 [id number] Methodi 00:00:00 00:00:00 Only Shyniquia 77299.1.[address] 3.430.2.7 Hospit a .3.498600 l .8 2021-09-26 2021-09-26 Refill Danny Cespedes 1.2.840.1 [id number] Methodi 00:00:00 00:00:[address] 3.430.2.7 Hospit a .3.432975 l .8 2021-08-13 2021-08-13 Travel 1.2.840.1 1.2.720.872 7109 [id number] Methodi 00:00:00 00:00:[address] 3.430.2.7 0.2.7.3.698 Ho spita .3.420479 084.8 l .8 2021-08-12 2021-08-12 Telemedici Danny Cespedes 1.2.840.1 [id number] Methodi 10:56:36 11:21:14 ne Heather 80749.1.[address] 3.430.2.7 Hospit a .3.952820 l .8 2021-08-09 2021-08-09 Travel 1.2.840.1 1.2.850.541 [id number] [id number] Methodi 00:00:00 00:00:[address] 3.430.2.7 0.2.7.3.698 Ho spita .3.129793 084.8 l .8 2021-07-19 2021-07-19 Patient Kerr, 1.2.840.1 [id number] Methodi 00:00:00 00:00:00 Outreach Wilda 93486.1.1 404 s t 3.430.2.7 Hospit a .3.490142 l .8 2021-07-18 2021-07-18 Telemedici [facility], 1.2.840.1 [id number] Methodi 12:48:36 12:57:45 ne Nasrin 16045.1.[address] 3.430.2.7 Hospit a .3.528222 l .8 2021-07-18 2021-07-18 Telephone [facility], 1.2.840.1 [id number] Methodi 00:00:00 00:00:[address] 3.430.2.7 Hospit a .3.744348 l .8 2021-07-17 2021-07-17 Telephone [facility], 1.2.840.1 [id number] Methodi 00:00:00 00:00:[address] 3.430.2.7 Hospit a .3.847336 l .8 2021-07-16 2021-07-16 Telephone [facility], 1.2.840.1 [id number] Methodi 00:00:00 00:00:[address] 3.430.2.7 Hospit a .3.152793 l .8 2021-07-12 2021-07-12 Patient Kerr, 1.2.840.1 [id number] Methodi 00:00:00 00:00:00 Outreach Wilda 56377.1.1 595 s t 3.430.2.7 Hospit a .3.331086 l .8 2021-07-05 2021-07-05 Patient Kerr, 1.2.840.1 [id number] Methodi 00:00:00 00:00:00 Outreach Wilda 55525.1.1 262 s t 3.430.2.7 Hospit a .3.632172 l .8 2021-07-01 2021-07-01 [facility] 1.2.840.1 [id number] Methodi 15:01:11 15:01:18 ne Nasrin [address]67.1.[address] 3.430.2.7 Hospit a .3.546113 l .8 2021-06-28 2021-06-28 Patient Kerr, 1.2.840.1 [id number] Methodi 00:00:00 00:00:00 Outreach Wilda 67824.1.1 821 s t 3.430.2.7 Hospit a .3.493342 l .8 2021-06-21 2021-06-21 Patient Kerr, 1.2.840.1 [id number] Methodi 00:00:00 00:00:00 Outreach Wilda 57360.1.1 919 s t 3.430.2.7 Hospit a .3.889845 l .8 2021-06-14 2021-06-14 Patient Kerr, 1.2.840.1 [id number] Methodi 00:00:00 00:00:00 Outreach Wilda 56650.1.1 699 s t 3.430.2.7 Hospit a .3.483222 l .8 2021-06-07 2021-06-07 Patient Cirilo, 1.2.840.1 [id number] Methodi 00:00:00 00:00:00 Outreach Wilda 36153.1.1 111 s t 3.430.2.7 Hospit a .3.181485 l .8 2021-05-31 2021-05-31 Patient Cirilo, 1.2.840.1 [id number] Methodi 00:00:00 00:00:00 Outreach Wilda 07651.1.1 144 s t 3.430.2.7 Hospit a .3.325542 l .8 2021-05-24 2021-05-24 Patient Cirilo, 1.2.840.1 [id number] Methodi 00:00:00 00:00:00 Outreach Wilda 23913.1.1 540 s t 3.430.2.7 Hospit a .3.786188 l .8 2021-05-22 2021-05-22 [facility].840[facility]1 [id number] Methodi 00:00:00 00:00:[address] 3.430.2.7 Hospit a .3.289649 l .8 2021-05-21 2021-05-21 [facility] 1.2.840.1 [id number] Methodi 16:12:35 16:12:43 ne Nasrin [address]896.1.[address] 3.430.2.7 Hospit a .3.966355 l .8 2021-05-21 2021-05-21 Tele[facility] 1.2.840.1 [id number] Methodi 00:00:00 00:00:[address] 3.430.2.7 Hospit a .3.061737 l .8 2021-05-20 2021-05-20 Travel 1.2.840.1 1.2.947.599 9698 [id number] Methodi 00:00:00 00:00:[address] 3.430.2.7 0.2.7.3.698 Ho spita .3.616794 084.8 l .8 2021-05-17 2021-05-17 Patient Cirilo, 1.2.840.1 [id number] Methodi 00:00:00 00:00:00 Outreach Wilda 36931.1.1 328 s t 3.430.2.7 Hospit a .3.298739 l .8 2021-05-10 2021-05-10 Patient Cirilo, 1.2.840.1 [id number] Methodi 00:00:00 00:00:00 Outreach Wilda 41193.1.1 211 s t 3.430.2.7 Hospit a .3.790165 l .8 2021-05-10 2021-05-10 Orders Muthuswamy, 1.2.840.1 [id number] 21 [id number] Methodi 00:00:00 00:00:00 Only Nasrin 64952.1.[address] 3.430.2.7 Hospit a .3.830740 l .8 2021-05-10 2021-05-10 Patient Cirilo, 1.2.840.1 [id number] Methodi 00:00:00 00:00:00 Outreach Wilda 07200.1.1 018 s t 3.430.2.7 Hospit a .3.256519 l .8 2021-03-31 2021-05-09 Hospital [facility] 1.2.840.1 [id number] Methodi 16:46:00 14:58:00 Encounter Jarrell Owens 14566.1.[address] [facility] 3.430.2.7 Hospita Kali Handley T. .3.495678 l .8 2021-05-09 2021-05-09 Refill Maria Elena, 1.2.840.1 [id number] Methodi 00:00:00 00:00:[address] 3.430.2.7 Hospit a .3.701249 l .8 2021-03-29 2021-03-29 Orders Danny Cespedes 1.2.840.1 [id number] Methodi 00:00:00 00:00:[address] Only C[address] 07796.1.[address] 3.430.2.7 Hospit a .3.588885 l .8 2021-03-29 2021-03-29 Refill Danny Cespedes 1.2.840.1 [id number] Methodi 00:00:00 00:00:[address] 3.430.2.7 Hospit a .3.986049 l .8 2021-03-05 2021-03-05 Transcribe Fernando, 1.2.840.1 [id number] Methodi 00:00:00 00:00:00 Orders Jayasimha 74587.1.[address] [facility] 3.430.2.7 Hosp lina .3.753173 l .8 2021-03-01 2021-03-01 Telemedici Floridalma, 1.2.840.1 [id number] Methodi 11:04:24 11:23:[address]54.1.[address] 3.430.2.7 Hospit a .3.045832 l .8 2021-02-26 2021-02-26 Outpatient Lapin_S [facility] [id number] [place] 12:26:00 12:26:00 [id number] [facility] 2021-02-26 2021-02-26 Outpatient Lapin, [facility] [id number] 2-d 00:00:00 00:00:00 Domenic [id number] Kody [id number] 2021-02-19 2021-02-19 [facility] 1.2.840.1 [id number] Methodi 00:00:00 00:00:[address] 3.430.2.7 Hospit a .3.398406 l .8 2021-02-19 2021-02-19 Travel 1.2.840.1 1.2.275.269 9655 [id number] Methodi 00:00:00 00:00:[address] 3.430.2.7 0.2.7.3.698 Ho spita .3.112156 084.8 l .8 2021-02-18 2021-02-18 Outpatient Lapin_S [facility] [id number] [place] 12:58:00 12:58:00 08619 [facility] 2021-02-11 2021-02-11 Refill Danny Cespedes 1.2.840.1 [id number] Methodi 00:00:00 00:00:[address] 3.430.2.7 Hospit a .3.952199 l .8 2021-02-08 2021-02-08 Office Danny Cespedes 1.2.840.1 [id number] 21 [id number] Methodi 15:30:14 16:27:16 Visit Heather 11772.1.[address] 3.430.2.7 Hospit a .3.653127 l .8 2021-02-08 2021-02-08 Travel 1.2.840.1 1.2.971.688 3236 [id number] Methodi 00:00:00 00:00:[address] 3.430.2.7 0.2.7.3.698 Ho spita .3.771789 084.8 l .8 2021-01-29 2021-01-29 Orders Floridalma, 1.2.840.1 [id number] Methodi 00:00:00 00:00:00 Only Nasrin 84542.1.[address] 3.430.2.7 Hospit a .3.100394 l .8 2021-01-29 2021-01-29 Refill Mutmonicaswamy, 1.2.840.1 [id number] 21 [id number] Methodi 00:00:00 00:00:[address] 3.430.2.7 Hospit a .3.781021 l .8 2021-01-28 2021-01-28 Refill Muthuswamy, 1.2.840.1 [id number] 21 [id number] Methodi 00:00:00 00:00:[address] 3.430.2.7 Hospit a .3.260960 l .8 2021-01-14 2021-01-14 Travel 1.2.840.1 1.2.834.225 5352 [id number] Methodi 00:00:00 00:00:[address] 3.430.2.7 0.2.7.3.698 Ho spita .3.795093 084.8 l .8 2020-12-26 2020-12-26 Orders Muttopheramy, 1.2.840.1 [id number] Methodi 00:00:00 00:00:00 Only Nasrin 49984.1.[address] 3.430.2.7 Hospit a .3.228159 l .8 2020-12-13 2020-12-19 [facility] 1.2.840.1 [id number] Methodi 20:11:00 14:47:00 Encounter Sathya Grant 55071.1.[address] Maureen, Chirag Sherita 3.430.2.7 Hospita [facility] .3.241000 l .8 2020-12-17 2020-12-17 Telephone Floridalma, 1.2.840.1 [id number] Methodi 00:00:00 00:00:[address] 3.430.2.7 Hospit a .3.861889 l .8 2020-12-12 2020-12-12 [facility] 1.2.840.1 [id number] 21 [id number] Methodi 10:59:25 11:43:50 Visit Nasrin 18837.1.[address] 3.430.2.7 Hospit a .3.518341 l .8 2020-12-12 2020-12-12 Telephone [facility], 1.2.840.1 [id number] Methodi 00:00:00 00:00:[address] 3.430.2.7 Hospit a .3.989392 l .8 2020-12-12 2020-12-12 [facility], 1.2.840.1 [id number] Methodi 00:00:00 00:00:00 Only Joseph 29380.1.[address] 3.430.2.7 Hospit a .3.606784 l .8 2020-12-12 2020-12-12 Telephone [facility], 1.2.840.1 [id number] Methodi 00:00:00 00:00:[address] 3.430.2.7 Hospit a .3.994957 l .8 2020-12-12 2020-12-12 Travel 1.2.840.1 1.2.433.803 [id number] [id number] Methodi 00:00:00 00:00:[address] 3.430.2.7 0.2.7.3.698 spita .3.385102 084.8 l .8 2020-12-10 2020-12-10 Telephone [facility], 1.2.840.1 [id number] Methodi 00:00:00 00:00:[address] 3.430.2.7 Hospit a .3.920364 l .8 2020-12-10 2020-12-10 Travel 1.2.840.1 1.2.062.184 2501 [id number] Methodi 00:00:00 00:00:[address] 3.430.2.7 0.2.7.3.698 Ho spita .3.189503 084.8 l .8 2017-12-02 2017-12-02 Outpatient [facility] MMG 65000-2 020 [place] 04:41:00 04:41:00 0721 [facility] Results Test Description Test Time Test Comments Results Result Comments Source Home O2 Setup 2021-05-09 18:44:28 Test Item Value Reference Range Interpretation Comme nts SUPPLIER NAME (test code [facility] = 6415) SUPPLIER PHONE (test code [phone] = 6416) ORDER STATUS (test code = [...] DELIVERY DATE 05/09/2021 (test code = 6422) [facility] [id number] 13:26:48 Test Item Value Reference Range Interpretation Comments POC glucose (test 94 mg/dL 65-99 Oversize Load [employer] N miguel angel: [place] code = 78445-6) Subha ID: [id number] able: [facility] Notified RNChar table: No Action Needed [facility] 2 [id number] 20:49:00 Test Item Value Reference Range Interpretation Comments Product name (test code Apheresis Red Cell = 25) AS3 #2 LR Unit number (test code = [id number]) Product code (test code [id number] = 3092) Dispense status (test Transfused code = 24) Blood expiration date (test code = 302) Blood type code (test code = 308) Blood type (test code = O POSITIVE 1314) Compatibility (test code Compatible = 6400) [facility] [id number] 17:20:00 Test Item Value Reference Range Interpretation Comments ABO grouping (test code = 883-9) O Rh type (test code = 83898-3) POS Antibody screen (gel) (test code = NEG 890-4) [facility] 12 [id number] 15:45:11 Test Item Value Reference Range Interpretation Comments Ventricular rate (test code = 253) Atrial rate (test code = 255) TX interval (test code = 266) QRSD interval [...] of 18-APR-2021 08:56,-No significant change was found- [facility] [id number] 17:41:54 Test Item Value Reference Range Interpretation Comments Urine culture No growth Specimen isolate (test after 24 InformationSpe cimen code = 10051-9) hours Source: [facility] 2 Units, [id number] 17:58:00 Test Item Value Reference Range Interpretation Comments Product name (test code Platelets Aph LR IRR = 25) Path Red #2 Unit number (test code = [id number]) Product code (test code L7488W63 = 3092) Dispense status (test Transfused code = 24) Blood expiration date (test code = 302) Blood type code (test code = 308) Blood type (test code = A POSITIVE 1314) Compatibility (test code Not required = 6400) [facility] [id number] 15:47:47 Test Item Value Reference Interpretation Comments Range Clostridium Toxigenic C Specimen difficile toxin diff NEGATIVE Information Specimen (test code = Source: StoolSp ecimen 1085) Site: Not other keith specified [facility] CenterV[facility] D 25 hydroxy [id number] 03:39:00 Test Item Value Reference Range Interpretation Comments Vitamin D, 63 ng/mL 30-100 Vitamin D Statu s 25-hydroxy 25-OH Tami min (test code = D: Deficiency: 1988-) < 20 ng/mLInsufficie ncy: 20 - 29 ng/mLOptimal: > or = 30 ng/mL For 25-OH Vitamin D testi ng on patients on D2-supplementat ion and patients fo r whom quantitati on of D2 and D3 fractions is required, the QuestAssureD(TM )25- OH VIT D, (D2,D 3), LC/MS/MS is recommended: or santana code 66695 (patients >2yrs).See Note 1 Note 1 For additional information, pl ease refer to http://educatio nTopShelf Clothes. [employer]ube/ faq/XJH186 (Thi s link is being provided for informational/e duca tional purposes only.) KIEL (test code FASTING:YES FASTING: = KIEL) YES RAC (test code Performing = RAC) Organization Information: Site ID: [facility] Name: [facility] Address: [address] [place] [id number] Director: Amos Huang [facility] Center[facility], COMPLETE, WITH REFLEX TO [id number] 03:39:00 Test Item Value Reference Range Interpretation Comments Color, UA (test code YELLOW YELLOW = 5778-6) Appearance (test CLEAR CLEAR code = 5767-9) Specific gravity, 1.001-1.035 urine (test code = 5811-5) pH, urine (test code 5.0-8.0 = 5803-2) Glucose, urine (test NEGATIVE NEGATIVE code = 45634-4) Bilirubin, UA (test NEGATIVE NEGATIVE code = 5770-3) Ketones, UA (test TRACE NEGATIVE A code = 2514-8) Occult blood, urine NEGATIVE NEGATIVE (test code = 5794-3) Protein, UA (test TRACE NEGATIVE A code = 32383-8) Nitrite, UA (test NEGATIVE NEGATIVE code = [...] code = NONE SEEN See_Comment [Autom ated 86216-7) message] The system which generated this result transmitted reference range : < OR = 2 /HPF. The reference range was not used to interpr et this result as normal/abnormal . Squamous epithelial NONE SEEN See_Comment [Automa adarsh cells, UA (test code message ] The = 87919-7) system which generated this result transmitted reference [...] RAC) Organization Information: Site ID: [facility] Name: [facility] Address: [address] [place] [id number] Director: Amos Huang Lab Interpretation Abnormal (test code = 42559-8) [facility]
--- NOTE | 2022-01-11 16:15 | RAD REPORT ---
EXAM DESCRIPTION: RAD - Elbow Right 3 View - 01/11/2022 4:04 pm CLINICAL HISTORY: PAIN COMPARISON: No comparisons FINDINGS/IMPRESSION: No acute fracture. No malalignment. No significant focal degenerative changes.
--- NOTE | 2022-01-11 17:02 | ER ---
Nurse's Notes [facility] Name: Ernie Chakraborty Age: 76 yrs Sex: Male : 1945 Arrival Date: 01/11/2022 Time: 14:13 Bed Treatment Private MD: Diagnosis: Pain in right shoulder Presentation: 01/11 14:36 Chief complaint: Spouse and/or significant other states: fell this morning, got up and iw fell on right side, hit the floor, has a skin tear on right elbow , now has pain to right arm, denies hitting head. Care prior to arrival: None. Mechanism of Injury: Fall from standing position. Trauma event details: Injury occurred in the [facility]. 14:36 Acuity: AISHA 3 iw 14:36 Method Of Arrival: Ambulatory iw 14:41 Coronavirus screen: At this time, the client does not indicate any symptoms associated iw with coronavirus-19. Ebola Screen: Patient negative for fever greater than or equal to 101.5 degrees Fahrenheit, and additional compatible Ebola Virus Disease symptoms Patient denies exposure to infectious person. Patient denies travel to an Ebola-affected area in the 21 days before illness onset. No symptoms or risks identified at this time. Initial Sepsis Screen: Does the patient meet any 2 criteria? No. Patient's initial sepsis screen is negative. Does the patient have a suspected source of infection? No. Patient's initial sepsis screen is negative. Risk Assessment: Do you want to hurt yourself or someone else? Patient reports no desire to harm self or others. Onset of symptoms was January 11, 2022. 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 Nutritional screening: No deficits noted. jb4 Tuberculosis screening: No symptoms or risk factors identified. Fall Risk None identified. Assessment: 17:15 General: Appears in no apparent distress. comfortable, Behavior is calm, cooperative. jb4 Pain: Complains of pain in right shoulder. Neuro: Level of Consciousness is awake, alert, obeys commands, Oriented to person, place, time, situation. Cardiovascular: Patient's skin is warm and dry. Respiratory: Airway is patent Respiratory effort is even, unlabored, Respiratory pattern is regular, symmetrical. GI: No signs and/or symptoms were reported involving the gastrointestinal system. : No signs and/or symptoms were reported regarding the genitourinary system. EENT: No signs and/or symptoms were reported regarding the EENT system. Derm: Skin is intact, Skin is pink, warm \T\ dry. Musculoskeletal: Circulation, motion, and sensation intact. Range of motion:. Vital Signs: 14:41 BP 131 / 67; Pulse 87; Resp 16; Temp 98.4; Pulse Ox 98% on R/A; iw ED Course: 14:13 Patient arrived in ED. am2 14:38 Triage completed. iw 15:08 Jil Jauregui PA is PHCP. en 15:08 Cathy Pfeiffer MD is Attending Physician. en 16:06 Humerus Right XRAY In Process Unspecified. EDMS 16:06 Shoulder Right (2 View) XRAY In Process Unspecified. EDMS 16:06 Elbow Right 3 View XRAY In Process Unspecified. EDMS 17:15 Patient has correct armband on for positive identification. Bed in low position. Call jb4 light in reach. Side rails up X 1. 17:15 No provider procedures requiring assistance completed. Patient did not have IV access jb4 during this emergency room visit. Administered Medications: No medications were administered Outcome: 17:01 Discharge ordered by . en 17:15 Discharged to home ambulatory. jb4 17:15 Condition: stable 17:15 Discharge instructions given to patient, family, Instructed on discharge instructions, follow up and referral plans. Demonstrated understanding of instructions, follow-up care. 17:17 Patient left the ED. jb4 Signatures: Dispatcher [employer] EDMS Elba Grossman RN RN iw Daniel Patten RN RN jb4 Nathaly Jasmine am2 Jil Jauregui PA PA en
--- NOTE | 2022-01-11 17:02 | EDPHYS ---
Physician Documentation [facility] Name: Ernie Chakraborty Age: 76 yrs Sex: Male : 1945 Arrival Date: 01/11/2022 Time: 14:13 Bed Treatment Private MD: ED Physician Cathy Pfeiffer HPI: 01/11 15:52 This 76 yrs old Male presents to ER via Ambulatory with complaints of Fall en Injury, Arm Pain, Leg Pain. 15:52 Details of fall: The patient fell from an upright position, while standing, while en walking. Onset: The symptoms/episode began/occurred suddenly, yesterday. Associated injuries: The patient sustained Right upper arm and elbow pain. Severity of symptoms: At their worst the symptoms were mild. 76 yo M with h/o dementia presents to ED s/p fall from standing. Pt was walking to bathroom when he stumbled. Landed on right elbow. C/O right shoulder pain. No pain in legs, hips today. Did not hit his head and did not pass out. . 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 en 15:52 Eyes: Negative for vision loss, visual disturbance. 15:52 Neck: Negative for pain with movement, pain at rest, stiffness. 15:52 Cardiovascular: Negative for edema, palpitations. 15:52 Respiratory: Negative for cough, orthopnea, shortness of breath. 15:52 Abdomen/GI: Negative for abdominal pain, nausea, vomiting, and diarrhea. 15:52 Back: Negative for injury or acute deformity, decreased range of motion, pain at rest, pain with movement. 15:52 MS/extremity: Positive for Abrasion to right elbow, pain to right shoulder and right humerus. . 15:52 Skin: Positive for abrasion(s). 15:52 Neuro: Negative for altered mental status, dizziness, gait disturbance, headache, numbness, seizure activity, syncope, near syncope, tingling, visual changes, weakness. 15:52 All other systems are negative. Exam: 15:52 Constitutional: This is a well developed, well nourished patient who is awake, alert, en and in no acute distress. 15:52 Head/face: Exam is negative for obvious evidence of injury or deformity, abrasion(s). 15:52 Eyes: Pupils: equal, round, and reactive to light and accomodation, Extraocular movements: intact throughout, Conjunctiva: normal. 15:52 ENT: TM's: Mouth: is normal. 15:52 Neck: Exam negative for obvious evidence of injury or deformity, pain w/ palpation, swelling. 15:52 Cardiovascular: Rate: normal, Rhythm: regular, Pulses: no pulse deficits are appreciated, Heart sounds: murmur, not appreciated, rub, not appreciated, gallop, not appreciated. 15:52 Respiratory: the patient does not display signs of respiratory distress, Respirations: normal, Breath sounds: are clear throughout. 15:52 Abdomen/GI: Bowel sounds: normal, Palpation: abdomen is soft and non-tender. 15:52 Back: pain, is absent, ROM is normal, normal spinal alignment noted. 15:52 Musculoskeletal/extremity: FROM BUE/STANLEY. Pain with ROM Right shoulder but FROM. abrasion to right elbow without swelling or deformity. 2+ distal pulses. Ambulates with a guarded gait but unassisted.. 15:52 Skin: abrasion to right elbow. 15:52 Neuro: Exam negative for acute changes, focal neuro deficits, Orientation: appropriate for stated age, no acute changes, to person, place \T\ time. Vital Signs: 14:41 BP 131 / 67; Pulse 87; Resp 16; Temp 98.4; Pulse Ox 98% on R/A; iw MDM: 15:11 Patient medically screened. en 15:52 Differential diagnosis: Strain, sprain, fracture, contusion. Will get XRs of RUE. No en other focal pain to image at this time. Data reviewed: vital signs, nurses notes, radiologic studies, and as a result, I will discharge patient. 17:00 ED course: reviewed imaging with pt and spouse. No fx. Encouraged walker and assistance en as needed. Ortho f/u prn. 01/11 15:09 Order name: Humerus Right XRAY en 01/11 15:09 Order name: Shoulder Right (2 View) XRAY en 01/11 15:09 Order name: Elbow Right 3 View XRAY; Complete Time: 17:00 en Administered Medications: No medications were administered Disposition: 18:02 Co-signature as Attending Physician, Cathy Pfeiffer MD. ma2 Disposition Summary: 01/11/22 17:01 Discharge Ordered Location: Home en Condition: Stable en Diagnosis - Pain in right shoulder en Followup: en - With: Private Physician - When: As needed - Reason: Discharge Instructions: - Discharge Summary Sheet en - Shoulder Pain en Forms: - Medication Reconciliation Form en - Thank You Letter en - Antibiotic Education en - Prescription Opioid Use en Signatures: Dispatcher [employer] Elba Rivas RN RN iw Alzahri, Mohammad, MD MD ma2 Jil Jauregui PA PA en
--- NOTE | 2022-01-11 17:03 | RAD REPORT ---
EXAM DESCRIPTION: RAD - Shoulder Right 2 View - 01/11/2022 4:04 pm CLINICAL HISTORY: PAIN COMPARISON: No comparisons FINDINGS/IMPRESSION: No acute fracture. No malalignment. No significant focal degenerative changes.
--- NOTE | 2022-01-11 17:03 | RAD REPORT ---
EXAM DESCRIPTION: RAD - Humerus Right - 01/11/2022 4:04 pm CLINICAL HISTORY: PAIN COMPARISON: No comparisons FINDINGS/IMPRESSION: No acute fracture. No malalignment. No significant focal degenerative changes.
[2022-01-11 20:43] VITALS: BP 131/67; TEMP 98.4; O2SAT 98
== END 2022-01-11 17:17 | disposition home or self-care (01) ==
LOC: ER 14:11
DX: M25.511 Pain in right shoulder (principal); S50.311A Abrasion of right elbow, initial encounter; W18.30XA Fall on same level, unspecified, initial encounter; F03.90 Unspecified dementia, unspecified severity, without behavioral disturbance, psychotic disturbance, mood disturbance, and anxiety; J44.9 Chronic obstructive pulmonary disease, unspecified; Z88.5 Allergy status to narcotic agent
CPT/HCPCS: 99283